=== PATIENT | male | born 1940 | race Caucasian/White ===

== ENCOUNTER 2017-04-05 08:11 | Day surgery (SDC) | payer MEDICARE, OTHER ==
[~2017-04-05 08:11] MED LIST: ALBU8HFA PO; CLOM50CA2 PO; CLOP75TA35 PO; FURO-150 PO; GUAI120L55 PO; LISI-600 PO; METF500T7 PO; METH30CP PO
[2017-04-05] MEDS ORDERED: LIDOcaine 2% 5ml jelly ONE (09:56)
== END 2017-04-05 10:49 | disposition home or self-care (01) ==
LOC: WOUND CARE 08:11
PROVIDERS: ATTEND Surgery
DX: E11.622 Type 2 diabetes mellitus with other skin ulcer (principal); L97.821 Non-pressure chronic ulcer of other part of left lower leg limited to breakdown of skin; E11.621 Type 2 diabetes mellitus with foot ulcer; L97.521 Non-pressure chronic ulcer of other part of left foot limited to breakdown of skin; I87.2 Venous insufficiency (chronic) (peripheral); E11.36 Type 2 diabetes mellitus with diabetic cataract; E11.42 Type 2 diabetes mellitus with diabetic polyneuropathy; L84 Corns and callosities; I10 Essential (primary) hypertension; I89.0 Lymphedema, not elsewhere classified; E78.4 Other hyperlipidemia; H47.293 Other optic atrophy, bilateral; Z98.49 Cataract extraction status, unspecified eye; Z72.89 Other problems related to lifestyle; Z87.891 Personal history of nicotine dependence; Z86.718 Personal history of other venous thrombosis and embolism
CPT/HCPCS: 36416; 82948; 97597; 97598; A6021; A6206; A6441

== ENCOUNTER 2017-04-14 08:35 | Day surgery (SDC) | payer MEDICARE, OTHER ==
[2017-04-14] MEDS ORDERED: LIDOcaine 2% 5ml jelly ONE (09:47)
[2017-04-14] MEDS ORDERED: CIPR-230 PO (14:39)
== END 2017-04-14 10:37 | disposition home or self-care (01) ==
LOC: WOUND CARE 08:35
PROVIDERS: ATTEND Surgery
DX: E11.622 Type 2 diabetes mellitus with other skin ulcer (principal); L97.821 Non-pressure chronic ulcer of other part of left lower leg limited to breakdown of skin; E11.621 Type 2 diabetes mellitus with foot ulcer; L97.521 Non-pressure chronic ulcer of other part of left foot limited to breakdown of skin; I87.2 Venous insufficiency (chronic) (peripheral); E11.36 Type 2 diabetes mellitus with diabetic cataract; E11.42 Type 2 diabetes mellitus with diabetic polyneuropathy; L84 Corns and callosities; I10 Essential (primary) hypertension; I89.0 Lymphedema, not elsewhere classified; E78.4 Other hyperlipidemia; H47.293 Other optic atrophy, bilateral; Z98.49 Cataract extraction status, unspecified eye; Z72.89 Other problems related to lifestyle; Z87.891 Personal history of nicotine dependence; Z86.718 Personal history of other venous thrombosis and embolism
CPT/HCPCS: 36416; 82948; 87070; 87075; 87077; 87102; 87176; 87186; 97597; 97598; A6021; A6222; A6441

== ENCOUNTER 2017-04-21 08:31 | Day surgery (SDC) | payer MEDICARE, OTHER ==
[~2017-04-21 08:31] MED LIST changes: +CIPR-230 PO
[2017-04-21] MEDS ORDERED: LIDOcaine 2% 5ml jelly ONE (09:39)
[2017-04-21] MEDS ORDERED: CIPR500T5 PO (15:15)
== END 2017-04-21 10:15 | disposition home or self-care (01) ==
LOC: WOUND CARE 08:31
PROVIDERS: ATTEND Surgery
DX: E11.622 Type 2 diabetes mellitus with other skin ulcer (principal); L97.821 Non-pressure chronic ulcer of other part of left lower leg limited to breakdown of skin; E11.621 Type 2 diabetes mellitus with foot ulcer; L97.521 Non-pressure chronic ulcer of other part of left foot limited to breakdown of skin; I87.2 Venous insufficiency (chronic) (peripheral); E11.36 Type 2 diabetes mellitus with diabetic cataract; E11.42 Type 2 diabetes mellitus with diabetic polyneuropathy; L84 Corns and callosities; I10 Essential (primary) hypertension; I89.0 Lymphedema, not elsewhere classified; E78.4 Other hyperlipidemia; H47.293 Other optic atrophy, bilateral; Z98.49 Cataract extraction status, unspecified eye; Z72.89 Other problems related to lifestyle; Z87.891 Personal history of nicotine dependence; Z86.718 Personal history of other venous thrombosis and embolism
CPT/HCPCS: 36416; 82948; 97597; 97598; A6021; A6206; A6441

== ENCOUNTER 2017-04-25 08:09 | Day surgery (SDC) | payer MEDICARE, OTHER ==
[~2017-04-25 08:09] MED LIST changes: +CIPR500T5 PO
[2017-04-25] MEDS ORDERED: LIDOcaine 2% 5ml jelly ONE (09:52)
== END 2017-04-25 10:55 | disposition home or self-care (01) ==
LOC: WOUND CARE 08:09
PROVIDERS: ATTEND Surgery
DX: E11.622 Type 2 diabetes mellitus with other skin ulcer (principal); L97.811 Non-pressure chronic ulcer of other part of right lower leg limited to breakdown of skin; E11.621 Type 2 diabetes mellitus with foot ulcer; L97.521 Non-pressure chronic ulcer of other part of left foot limited to breakdown of skin; I87.2 Venous insufficiency (chronic) (peripheral); E11.36 Type 2 diabetes mellitus with diabetic cataract; E11.42 Type 2 diabetes mellitus with diabetic polyneuropathy; L84 Corns and callosities; I10 Essential (primary) hypertension; I89.0 Lymphedema, not elsewhere classified; E78.4 Other hyperlipidemia; H47.293 Other optic atrophy, bilateral; Z98.49 Cataract extraction status, unspecified eye; Z72.89 Other problems related to lifestyle; Z87.891 Personal history of nicotine dependence; Z86.718 Personal history of other venous thrombosis and embolism
CPT/HCPCS: 36416; 82948; 97597; 97598; A6021; A6206; A6441

== ENCOUNTER 2017-04-28 08:30 | Outpatient (CLI) | payer MEDICARE, OTHER ==
[~2017-04-28 08:30] MED LIST changes: -CIPR-230 PO
[2017-04-28] MEDS ORDERED: gentamicin 0.1% topical ointment 15gm TP ONE (08:58)
[2017-04-28] MEDS ORDERED: gentamicin 0.1% topical ointment 15gm TP SCH (09:00)
== END 2017-04-28 09:13 | disposition home or self-care (01) ==
LOC: WOUND CARE 08:30
PROVIDERS: ATTEND Surgery
DX: E11.622 Type 2 diabetes mellitus with other skin ulcer (principal); L97.811 Non-pressure chronic ulcer of other part of right lower leg limited to breakdown of skin; E11.621 Type 2 diabetes mellitus with foot ulcer; L97.521 Non-pressure chronic ulcer of other part of left foot limited to breakdown of skin; I87.2 Venous insufficiency (chronic) (peripheral); E11.36 Type 2 diabetes mellitus with diabetic cataract; E11.42 Type 2 diabetes mellitus with diabetic polyneuropathy; L84 Corns and callosities; I10 Essential (primary) hypertension; I89.0 Lymphedema, not elsewhere classified; E78.4 Other hyperlipidemia; H47.293 Other optic atrophy, bilateral; Z98.49 Cataract extraction status, unspecified eye; Z72.89 Other problems related to lifestyle; Z87.891 Personal history of nicotine dependence; Z86.718 Personal history of other venous thrombosis and embolism
CPT/HCPCS: 29581; 36416; 82948; A6021; A6223; A6441

== ENCOUNTER 2017-05-02 08:07 | Day surgery (SDC) | payer MEDICARE, OTHER ==
[2017-05-02] MEDS ORDERED: LIDOcaine 2% 5ml jelly ONE (09:43)
== END 2017-05-02 10:34 | disposition home or self-care (01) ==
LOC: WOUND CARE 08:07
PROVIDERS: ATTEND Surgery
DX: E11.622 Type 2 diabetes mellitus with other skin ulcer (principal); L97.811 Non-pressure chronic ulcer of other part of right lower leg limited to breakdown of skin; E11.621 Type 2 diabetes mellitus with foot ulcer; L97.521 Non-pressure chronic ulcer of other part of left foot limited to breakdown of skin; I87.2 Venous insufficiency (chronic) (peripheral); E11.36 Type 2 diabetes mellitus with diabetic cataract; E11.42 Type 2 diabetes mellitus with diabetic polyneuropathy; L84 Corns and callosities; I10 Essential (primary) hypertension; I89.0 Lymphedema, not elsewhere classified; E78.4 Other hyperlipidemia; H47.293 Other optic atrophy, bilateral; Z98.49 Cataract extraction status, unspecified eye; Z72.89 Other problems related to lifestyle; Z87.891 Personal history of nicotine dependence; Z86.718 Personal history of other venous thrombosis and embolism
CPT/HCPCS: 29581; 36416; 82948; 97597; A6021; A6206; A6441

== ENCOUNTER 2017-05-05 08:00 | Outpatient (CLI) | payer MEDICARE, OTHER | END 2017-05-05 09:25 | disposition home or self-care (01) | LOC: EDSTATUS 08:00 → WOUND CARE 08:00 | PROVIDERS: ATTEND Surgery | DX: E11.622 Type 2 diabetes mellitus with other skin ulcer (principal); L97.811 Non-pressure chronic ulcer of other part of right lower leg limited to breakdown of skin; E11.621 Type 2 diabetes mellitus with foot ulcer; L97.521 Non-pressure chronic ulcer of other part of left foot limited to breakdown of skin; I87.2 Venous insufficiency (chronic) (peripheral); E11.36 Type 2 diabetes mellitus with diabetic cataract; E11.42 Type 2 diabetes mellitus with diabetic polyneuropathy; L84 Corns and callosities; I10 Essential (primary) hypertension; I89.0 Lymphedema, not elsewhere classified; E78.4 Other hyperlipidemia; H47.293 Other optic atrophy, bilateral; Z98.49 Cataract extraction status, unspecified eye; Z72.89 Other problems related to lifestyle; Z87.891 Personal history of nicotine dependence; Z86.718 Personal history of other venous thrombosis and embolism | CPT/HCPCS: 29581; 36416; 82948; A6021; A6206; A6441 ==

== ENCOUNTER 2017-05-20 08:26 | Outpatient (CLI) | payer MEDICARE, OTHER ==
[~2017-05-20 08:26] MED LIST changes: -CIPR500T5 PO
== END 2017-05-20 09:17 | disposition home or self-care (01) ==
LOC: WOUND CARE 08:26
PROVIDERS: ATTEND Surgery
DX: E11.622 Type 2 diabetes mellitus with other skin ulcer (principal); L97.811 Non-pressure chronic ulcer of other part of right lower leg limited to breakdown of skin; E11.621 Type 2 diabetes mellitus with foot ulcer; L97.521 Non-pressure chronic ulcer of other part of left foot limited to breakdown of skin; I87.2 Venous insufficiency (chronic) (peripheral); E11.36 Type 2 diabetes mellitus with diabetic cataract; E11.42 Type 2 diabetes mellitus with diabetic polyneuropathy; L84 Corns and callosities; I10 Essential (primary) hypertension; I89.0 Lymphedema, not elsewhere classified; E78.4 Other hyperlipidemia; H47.293 Other optic atrophy, bilateral; Z98.49 Cataract extraction status, unspecified eye; Z72.89 Other problems related to lifestyle; Z87.891 Personal history of nicotine dependence; Z86.718 Personal history of other venous thrombosis and embolism
CPT/HCPCS: 29581; 36416; 82948; A6021; A6206; A6441

== ENCOUNTER 2017-05-26 08:25 | Outpatient (CLI) | payer MEDICARE, OTHER | END 2017-05-27 10:30 | disposition home or self-care (01) | LOC: WOUND CARE 08:25 | PROVIDERS: ATTEND Surgery | DX: E11.622 Type 2 diabetes mellitus with other skin ulcer (principal); L97.811 Non-pressure chronic ulcer of other part of right lower leg limited to breakdown of skin; E11.621 Type 2 diabetes mellitus with foot ulcer; L97.521 Non-pressure chronic ulcer of other part of left foot limited to breakdown of skin; I87.2 Venous insufficiency (chronic) (peripheral); E11.36 Type 2 diabetes mellitus with diabetic cataract; E11.42 Type 2 diabetes mellitus with diabetic polyneuropathy; L84 Corns and callosities; I10 Essential (primary) hypertension; I89.0 Lymphedema, not elsewhere classified; E78.4 Other hyperlipidemia; H47.293 Other optic atrophy, bilateral; Z98.49 Cataract extraction status, unspecified eye; Z87.891 Personal history of nicotine dependence; Z86.718 Personal history of other venous thrombosis and embolism | CPT/HCPCS: 29581; 36416; 82948; A6441 ==

== ENCOUNTER 2017-06-02 08:25 | Outpatient (CLI) | payer MEDICARE, OTHER | END 2017-06-02 09:15 | disposition home or self-care (01) | LOC: WOUND CARE 08:25 | PROVIDERS: ATTEND Surgery | DX: E11.622 Type 2 diabetes mellitus with other skin ulcer (principal); L97.811 Non-pressure chronic ulcer of other part of right lower leg limited to breakdown of skin; E11.621 Type 2 diabetes mellitus with foot ulcer; L97.521 Non-pressure chronic ulcer of other part of left foot limited to breakdown of skin; I87.2 Venous insufficiency (chronic) (peripheral); E11.36 Type 2 diabetes mellitus with diabetic cataract; E11.42 Type 2 diabetes mellitus with diabetic polyneuropathy; L84 Corns and callosities; I10 Essential (primary) hypertension; I89.0 Lymphedema, not elsewhere classified; E78.4 Other hyperlipidemia; H47.293 Other optic atrophy, bilateral; Z98.49 Cataract extraction status, unspecified eye; Z87.891 Personal history of nicotine dependence; Z86.718 Personal history of other venous thrombosis and embolism | CPT/HCPCS: 29581; 36416; 82948; A6223; A6441 ==

== ENCOUNTER 2017-06-09 08:29 | Outpatient (CLI) | payer MEDICARE, OTHER | END 2017-06-09 10:02 | disposition home or self-care (01) | LOC: WOUND CARE 08:29 | PROVIDERS: ATTEND Surgery | DX: E11.622 Type 2 diabetes mellitus with other skin ulcer (principal); L97.811 Non-pressure chronic ulcer of other part of right lower leg limited to breakdown of skin; E11.621 Type 2 diabetes mellitus with foot ulcer; L97.521 Non-pressure chronic ulcer of other part of left foot limited to breakdown of skin; I87.2 Venous insufficiency (chronic) (peripheral); E11.36 Type 2 diabetes mellitus with diabetic cataract; E11.42 Type 2 diabetes mellitus with diabetic polyneuropathy; L84 Corns and callosities; I10 Essential (primary) hypertension; I89.0 Lymphedema, not elsewhere classified; E78.4 Other hyperlipidemia; H47.293 Other optic atrophy, bilateral; Z98.49 Cataract extraction status, unspecified eye; Z87.891 Personal history of nicotine dependence; Z86.718 Personal history of other venous thrombosis and embolism | CPT/HCPCS: 29581; 36416; 82948; A6441 ==

== ENCOUNTER 2017-09-09 08:15 | Outpatient (CLI) | payer MEDICARE, OTHER | END 2017-09-09 10:41 | disposition home or self-care (01) | LOC: WOUND CARE 08:15 → EDSTATUS 08:30 → WOUND CARE 10:41 | PROVIDERS: ATTEND Surgery | DX: E11.622 Type 2 diabetes mellitus with other skin ulcer (principal); L97.811 Non-pressure chronic ulcer of other part of right lower leg limited to breakdown of skin; L97.821 Non-pressure chronic ulcer of other part of left lower leg limited to breakdown of skin; I83.11 Varicose veins of right lower extremity with inflammation; E11.36 Type 2 diabetes mellitus with diabetic cataract; E11.42 Type 2 diabetes mellitus with diabetic polyneuropathy; L84 Corns and callosities; I10 Essential (primary) hypertension; I89.0 Lymphedema, not elsewhere classified; E78.4 Other hyperlipidemia; H47.293 Other optic atrophy, bilateral; Z98.49 Cataract extraction status, unspecified eye; Z86.718 Personal history of other venous thrombosis and embolism; Z87.891 Personal history of nicotine dependence | CPT/HCPCS: 29581; 36416; 82948; A4414; A6441 ==

== ENCOUNTER 2017-10-20 08:07 | Day surgery (SDC) | payer MEDICARE, OTHER ==
[2017-10-20] MEDS: LIDOcaine 2% 5ml jelly ONE (09:37)
== END 2017-10-20 10:21 | disposition home or self-care (01) ==
LOC: WOUND CARE 08:07
PROVIDERS: ATTEND Surgery
DX: E11.622 Type 2 diabetes mellitus with other skin ulcer (principal); L97.811 Non-pressure chronic ulcer of other part of right lower leg limited to breakdown of skin; L97.821 Non-pressure chronic ulcer of other part of left lower leg limited to breakdown of skin; I83.11 Varicose veins of right lower extremity with inflammation; E11.36 Type 2 diabetes mellitus with diabetic cataract; E11.42 Type 2 diabetes mellitus with diabetic polyneuropathy; L84 Corns and callosities; I10 Essential (primary) hypertension; I89.0 Lymphedema, not elsewhere classified; E78.4 Other hyperlipidemia; H47.293 Other optic atrophy, bilateral; Z98.49 Cataract extraction status, unspecified eye; Z86.718 Personal history of other venous thrombosis and embolism; Z87.891 Personal history of nicotine dependence
CPT/HCPCS: 36416; 82948; 97597; A6021; A6206; A6441

== ENCOUNTER 2017-10-27 08:05 | Outpatient (CLI) | payer MEDICARE, OTHER | END 2017-10-27 10:17 | disposition home or self-care (01) | LOC: WOUND CARE 08:05 | PROVIDERS: ATTEND Surgery | DX: E11.65 Type 2 diabetes mellitus with hyperglycemia (principal); L97.221 Non-pressure chronic ulcer of left calf limited to breakdown of skin; I83.215 Varicose veins of right lower extremity with both ulcer other part of foot and inflammation; I83.212 Varicose veins of right lower extremity with both ulcer of calf and inflammation | CPT/HCPCS: 29581; 36416; 82948; A6441 ==

== ENCOUNTER 2017-11-03 08:05 | Outpatient (CLI) | payer MEDICARE, OTHER | END 2017-11-03 10:42 | disposition home or self-care (01) | LOC: WOUND CARE 08:05 | PROVIDERS: ATTEND Surgery | DX: E11.622 Type 2 diabetes mellitus with other skin ulcer (principal); L97.211 Non-pressure chronic ulcer of right calf limited to breakdown of skin; L97.221 Non-pressure chronic ulcer of left calf limited to breakdown of skin; I83.212 Varicose veins of right lower extremity with both ulcer of calf and inflammation; I83.222 Varicose veins of left lower extremity with both ulcer of calf and inflammation; E11.36 Type 2 diabetes mellitus with diabetic cataract; E11.42 Type 2 diabetes mellitus with diabetic polyneuropathy; L84 Corns and callosities; I10 Essential (primary) hypertension; I89.0 Lymphedema, not elsewhere classified; E78.4 Other hyperlipidemia; H47.293 Other optic atrophy, bilateral; Z98.49 Cataract extraction status, unspecified eye; Z86.718 Personal history of other venous thrombosis and embolism; Z87.891 Personal history of nicotine dependence | CPT/HCPCS: 29581; 36416; 82948; A6441 ==

== ENCOUNTER 2017-12-16 08:29 | Day surgery (SDC) | payer MEDICARE, OTHER | END 2017-12-16 10:55 | disposition home or self-care (01) | LOC: WOUND CARE 08:29 | PROVIDERS: ATTEND Surgery | DX: E11.622 Type 2 diabetes mellitus with other skin ulcer (principal); L97.221 Non-pressure chronic ulcer of left calf limited to breakdown of skin; I83.022 Varicose veins of left lower extremity with ulcer of calf; E11.36 Type 2 diabetes mellitus with diabetic cataract; E11.42 Type 2 diabetes mellitus with diabetic polyneuropathy; L84 Corns and callosities; I10 Essential (primary) hypertension; I89.0 Lymphedema, not elsewhere classified; H47.293 Other optic atrophy, bilateral; Z98.49 Cataract extraction status, unspecified eye; Z86.718 Personal history of other venous thrombosis and embolism; Z87.891 Personal history of nicotine dependence | CPT/HCPCS: 36416; 82948; 97597; A6021; A6206; A6441 ==

== ENCOUNTER 2017-12-22 08:10 | Outpatient (CLI) | payer MEDICARE, OTHER | END 2017-12-22 10:37 | disposition home or self-care (01) | LOC: WOUND CARE 08:10 | PROVIDERS: ATTEND Surgery | DX: E11.622 Type 2 diabetes mellitus with other skin ulcer (principal); L97.221 Non-pressure chronic ulcer of left calf limited to breakdown of skin; I83.022 Varicose veins of left lower extremity with ulcer of calf; E11.36 Type 2 diabetes mellitus with diabetic cataract; E11.42 Type 2 diabetes mellitus with diabetic polyneuropathy; E11.65 Type 2 diabetes mellitus with hyperglycemia; L84 Corns and callosities; I10 Essential (primary) hypertension; I89.0 Lymphedema, not elsewhere classified; H47.293 Other optic atrophy, bilateral; Z98.49 Cataract extraction status, unspecified eye; Z86.718 Personal history of other venous thrombosis and embolism; Z87.891 Personal history of nicotine dependence | CPT/HCPCS: 29581; 36416; 82948; A6021; A6206; A6441 ==

== ENCOUNTER 2017-12-29 08:07 | Day surgery (SDC) | payer MEDICARE, OTHER | END 2017-12-29 10:32 | disposition home or self-care (01) | LOC: WOUND CARE 08:07 | PROVIDERS: ATTEND Surgery | DX: E11.622 Type 2 diabetes mellitus with other skin ulcer (principal); L97.221 Non-pressure chronic ulcer of left calf limited to breakdown of skin; I83.022 Varicose veins of left lower extremity with ulcer of calf; E11.36 Type 2 diabetes mellitus with diabetic cataract; E11.42 Type 2 diabetes mellitus with diabetic polyneuropathy; E11.65 Type 2 diabetes mellitus with hyperglycemia; L84 Corns and callosities; I10 Essential (primary) hypertension; I89.0 Lymphedema, not elsewhere classified; H47.293 Other optic atrophy, bilateral; Z98.49 Cataract extraction status, unspecified eye; Z86.718 Personal history of other venous thrombosis and embolism; Z87.891 Personal history of nicotine dependence | CPT/HCPCS: 36416; 82948; 97597; A6021; A6206; A6441 ==

== ENCOUNTER 2018-01-05 08:00 | Outpatient (CLI) | payer MEDICARE, OTHER | END 2018-01-05 09:50 | disposition home or self-care (01) | LOC: WOUND CARE 08:00 → EDSTATUS 08:00 → WOUND CARE 09:50 | PROVIDERS: ATTEND Surgery | DX: E11.622 Type 2 diabetes mellitus with other skin ulcer (principal); L97.221 Non-pressure chronic ulcer of left calf limited to breakdown of skin; I83.022 Varicose veins of left lower extremity with ulcer of calf; E11.36 Type 2 diabetes mellitus with diabetic cataract; E11.42 Type 2 diabetes mellitus with diabetic polyneuropathy; E11.65 Type 2 diabetes mellitus with hyperglycemia; L84 Corns and callosities; I10 Essential (primary) hypertension; I89.0 Lymphedema, not elsewhere classified; H47.293 Other optic atrophy, bilateral; Z98.49 Cataract extraction status, unspecified eye; Z86.718 Personal history of other venous thrombosis and embolism; Z87.891 Personal history of nicotine dependence | CPT/HCPCS: 36416; 82948; 99214 ==

== ENCOUNTER 2018-02-09 08:05 | Day surgery (SDC) | payer MEDICARE, OTHER ==
[2018-02-09] MEDS ORDERED: LIDOcaine/PRILOcaine 5gm cream TP ONE (09:44)
[2018-02-09] MEDS ORDERED: silver sulfadiazine cream 50gm TP ONE (10:14)
== END 2018-02-09 10:40 | disposition home or self-care (01) ==
LOC: WOUND CARE 08:05
PROVIDERS: ATTEND Surgery
DX: E11.622 Type 2 diabetes mellitus with other skin ulcer (principal); L97.221 Non-pressure chronic ulcer of left calf limited to breakdown of skin; I83.022 Varicose veins of left lower extremity with ulcer of calf; E11.36 Type 2 diabetes mellitus with diabetic cataract; E11.42 Type 2 diabetes mellitus with diabetic polyneuropathy; E11.65 Type 2 diabetes mellitus with hyperglycemia; L84 Corns and callosities; I10 Essential (primary) hypertension; I89.0 Lymphedema, not elsewhere classified; H47.293 Other optic atrophy, bilateral; Z98.49 Cataract extraction status, unspecified eye; Z86.718 Personal history of other venous thrombosis and embolism; Z87.891 Personal history of nicotine dependence
CPT/HCPCS: 36416; 82948; 97597; A6223; A6441

== ENCOUNTER 2018-02-16 08:05 | Day surgery (SDC) | payer MEDICARE, OTHER ==
[2018-02-16] MEDS ORDERED: LIDOcaine/PRILOcaine 5gm cream TP ONE (09:34)
== END 2018-02-16 10:20 | disposition home or self-care (01) ==
LOC: WOUND CARE 08:05
PROVIDERS: ATTEND Surgery
DX: E11.622 Type 2 diabetes mellitus with other skin ulcer (principal); L97.221 Non-pressure chronic ulcer of left calf limited to breakdown of skin; I83.022 Varicose veins of left lower extremity with ulcer of calf; E11.36 Type 2 diabetes mellitus with diabetic cataract; E11.42 Type 2 diabetes mellitus with diabetic polyneuropathy; E11.65 Type 2 diabetes mellitus with hyperglycemia; L84 Corns and callosities; I10 Essential (primary) hypertension; I89.0 Lymphedema, not elsewhere classified; H47.293 Other optic atrophy, bilateral; Z98.49 Cataract extraction status, unspecified eye; Z86.718 Personal history of other venous thrombosis and embolism; Z87.891 Personal history of nicotine dependence
CPT/HCPCS: 36416; 82948; 97597; A6021; A6206; A6441

== ENCOUNTER 2018-02-24 08:07 | Outpatient (CLI) | payer MEDICARE, OTHER | END 2018-02-24 10:13 | disposition home or self-care (01) | LOC: WOUND CARE 08:07 | PROVIDERS: ATTEND Surgery | DX: E11.622 Type 2 diabetes mellitus with other skin ulcer (principal); L97.221 Non-pressure chronic ulcer of left calf limited to breakdown of skin; I83.022 Varicose veins of left lower extremity with ulcer of calf; E11.36 Type 2 diabetes mellitus with diabetic cataract; E11.42 Type 2 diabetes mellitus with diabetic polyneuropathy; E11.65 Type 2 diabetes mellitus with hyperglycemia; L84 Corns and callosities; I10 Essential (primary) hypertension; I89.0 Lymphedema, not elsewhere classified; H47.293 Other optic atrophy, bilateral; Z98.49 Cataract extraction status, unspecified eye; Z86.718 Personal history of other venous thrombosis and embolism; Z87.891 Personal history of nicotine dependence | CPT/HCPCS: 29581; 36416; 82948; A6021; A6206; A6441 ==

== ENCOUNTER 2018-03-02 08:02 | Day surgery (SDC) | payer MEDICARE, OTHER ==
[2018-03-02] MEDS ORDERED: LIDOcaine 1%/PF 5ML 10 MG/ML VIAL ONE (10:11)
== END 2018-03-02 10:50 | disposition home or self-care (01) ==
LOC: WOUND CARE 08:02
PROVIDERS: ATTEND Surgery
DX: E11.622 Type 2 diabetes mellitus with other skin ulcer (principal); L97.221 Non-pressure chronic ulcer of left calf limited to breakdown of skin; I83.022 Varicose veins of left lower extremity with ulcer of calf; E11.36 Type 2 diabetes mellitus with diabetic cataract; E11.42 Type 2 diabetes mellitus with diabetic polyneuropathy; E11.65 Type 2 diabetes mellitus with hyperglycemia; L84 Corns and callosities; I10 Essential (primary) hypertension; I89.0 Lymphedema, not elsewhere classified; H47.293 Other optic atrophy, bilateral; Z98.49 Cataract extraction status, unspecified eye; Z86.718 Personal history of other venous thrombosis and embolism; Z87.891 Personal history of nicotine dependence
CPT/HCPCS: 29581; 82948; 87070; 87075; 87077; 87102; 87186; 97597; A6209; J2001; A6021; A6206; A6441; A6446

== ENCOUNTER 2018-03-09 08:07 | Day surgery (SDC) | payer MEDICARE, OTHER ==
--- NOTE | 2018-03-09 10:30 | NUR ---
Patient arrived via wheelchair from [facility] and was admitted to outpatient wound care for physician visit with Beau Mendez MD. Dressing removed, wound cleansed. Patient assessed for changes in conditions, medications and medical history. 908 - blood glucose 157. Patient instructed that elevated blood sugars delay healing of the wound and can cause further complications including but not limited to amputation of toes or feet. 929 - Dr. Mendez at bedside accompanied by RN. Wound assessed, time out performed by MD/RN. Wound debrided as detailed in the physician progress/procedure note. Plan of care discussed with patient. Dressings placed per MD orders. Pt instructed to elevate legs at least 30 minutes 3 times a day or 10 minutes every 4 hours, also instructed check their toes. If they become purplish or blue, cool to the touch, numb or tingly, use a pair of scissors and carefully cut off the dressing. Call the Wound Center for an appointment to have the dressing reapplied. Pt instructed that decreased swelling in the legs and the potential for drainage from the wound may require them to have to schedule visits twice weekly, progressing to weekly as the swelling decreases in their legs. Pt instructed that if dressings become loose, wrinkled or falls down and if they are experiencing any pain or discomfort under their dressing cut the dressing off and call the Wound Center to have it reapplied. Pt instructed that the wrap needs to be kept dry. They may bath at a sink or there are devices designed to keep dressings dry these are available at most drug stores. If they choose to shower with a plastic bag taped over the wrap. Be sure to having another person available for assistance or placing towels on the floor of the shower or tub to eliminate the slick surface can reduce the risk of falls. Patient instructed on the signs and symptoms of infection and to call the Wound Center if any occur or to go to the ED if we are closed: Increased pain in wound Increase in drainage from the wound Redness in the skin surrounding the wound Bleeding from the wound Temperature of 101 or greater Patient instructed that the weight of their body puts a large amount of pressure on their wounds. This pressure keeps the new tissue from growing and inhibits new blood vessels from forming. Explained that, if they continue to bear weight on a body part that has a wound, the time it takes to heal the wound increases, the wound may get worse or the wound may not heal at all. Patient verbalized understanding of all discharge instructions and plan of care and exited via wheelchair out to lobby in stable condition with no sign or symptom of distress at time of discharge.
== END 2018-03-09 09:52 | disposition home or self-care (01) ==
LOC: WOUND CARE 08:07
PROVIDERS: ATTEND Surgery
DX: E11.622 Type 2 diabetes mellitus with other skin ulcer (principal); L97.221 Non-pressure chronic ulcer of left calf limited to breakdown of skin; I83.022 Varicose veins of left lower extremity with ulcer of calf; E11.621 Type 2 diabetes mellitus with foot ulcer; L97.512 Non-pressure chronic ulcer of other part of right foot with fat layer exposed; E11.36 Type 2 diabetes mellitus with diabetic cataract; E11.42 Type 2 diabetes mellitus with diabetic polyneuropathy; E11.65 Type 2 diabetes mellitus with hyperglycemia; L84 Corns and callosities; I10 Essential (primary) hypertension; I89.0 Lymphedema, not elsewhere classified; H47.293 Other optic atrophy, bilateral; Z98.49 Cataract extraction status, unspecified eye; Z86.718 Personal history of other venous thrombosis and embolism; Z87.891 Personal history of nicotine dependence
CPT/HCPCS: 29581; 36416; 82948; 97597; A6021; A6206; A6212; A6441

== ENCOUNTER 2018-03-16 07:49 | Outpatient (CLI) | payer MEDICARE, BC ==
--- NOTE | 2018-03-16 12:56 | NUR ---
Patient arrived safely from [facility] via wheelchair. Patient was admitted to outpatient wound care for physician visit with Beau Mendez MD. Dressing removed, wound cleansed and lidocaine applied per order. Patient assessed for changes in conditions, medications and medical history. [id number] Dr. Mendez at bedside accompanied by RN. Wound assessed and no debridement was done. Plan of care discussed with patient. Dressings placed per MD orders. Patient instructed on the signs and symptoms of infection and to call the Wound Center if any occur or to go to the ED if we are closed: Increased pain in wound Increase in drainage from the wound Redness in the skin surrounding the wound Bleeding from the wound Temperature of 101 or greater Patient instructed that elevated blood sugars delay healing of the wound and can cause further complications including but not limited to amputation of toes or feet. Pt instructed to elevate legs at least 30 minutes 3 times a day or 10 minutes every 4 hours, also instructed check their toes. If they become purplish or blue, cool to the touch, numb or tingly, use a pair of scissors and carefully cut off the dressing. Call the Wound Center for an appointment to have the dressing reapplied. Pt instructed that decreased swelling in the legs and the potential for drainage from the wound may require them to have to schedule visits twice weekly, progressing to weekly as the swelling decreases in their legs. Pt instructed that if dressings become loose, wrinkled or falls down and if they are experiencing any pain or discomfort under their dressing cut the dressing off and call the Wound Center to have it reapplied. Pt instructed that the wrap needs to be kept dry. They may bath at a sink or there are devices designed to keep dressings dry these are available at most drug stores. If they choose to shower with a plastic bag taped over the wrap. Be sure to having another person available for assistance or placing towels on the floor of the shower or tub to eliminate the slick surface can reduce the risk of falls. Patient instructed that the weight of their body puts a large amount of pressure on their wounds. This pressure keeps the new tissue from growing and inhibits new blood vessels from forming. Explained that, if they continue to bear weight on a body part that has a wound, the time it takes to heal the wound increases, the wound may get worse or the wound may not heal at all. Patient verbalized understanding of all discharge instructions and plan of care and ambulated independently out to lobby in stable condition with no sign or symptom of distress at time of discharge. Addendum: 03/16/18 at 1258 by Alyssa Evangelista RN Amended: Links added.
== END 2018-03-16 10:30 | disposition home or self-care (01) ==
LOC: WOUND CARE 07:49 → EDSTATUS 08:00 → WOUND CARE 10:30
PROVIDERS: ATTEND Surgery
DX: E11.622 Type 2 diabetes mellitus with other skin ulcer (principal); I83.022 Varicose veins of left lower extremity with ulcer of calf; L97.228 Non-pressure chronic ulcer of left calf with other specified severity; L97.312 Non-pressure chronic ulcer of right ankle with fat layer exposed; E11.621 Type 2 diabetes mellitus with foot ulcer; L97.518 Non-pressure chronic ulcer of other part of right foot with other specified severity; E11.36 Type 2 diabetes mellitus with diabetic cataract; E11.42 Type 2 diabetes mellitus with diabetic polyneuropathy; E11.65 Type 2 diabetes mellitus with hyperglycemia; L84 Corns and callosities; I10 Essential (primary) hypertension; I89.0 Lymphedema, not elsewhere classified; H47.293 Other optic atrophy, bilateral; Z98.49 Cataract extraction status, unspecified eye; Z86.718 Personal history of other venous thrombosis and embolism; Z87.891 Personal history of nicotine dependence
CPT/HCPCS: 29581; 36416; 82948; A6441

== ENCOUNTER 2018-04-06 08:00 | Outpatient (CLI) | payer MEDICARE, BC ==
--- NOTE | 2018-04-06 10:30 | NUR ---
Patient arrived via wheelchair from [facility] and was admitted to outpatient wound care for physician visit with Beau Mendez MD. Dressing removed, wound cleansed. Patient assessed for changes in conditions, medications and medical history. 0955 - Dr. Mendez at bedside accompanied by RN. Wound assessed by MD. Plan of care discussed with patient. No dressings ordered or placed, patient to have caregiver place dressings at home "after shower". Patient instructed on the signs and symptoms of infection and to call the Wound Center if any occur or to go to the ED if we are closed: Increased pain in wound Increase in drainage from the wound Redness in the skin surrounding the wound Bleeding from the wound Temperature of 101 or greater Patient instructed that the weight of their body puts a large amount of pressure on their wounds. This pressure keeps the new tissue from growing and inhibits new blood vessels from forming. Explained that, if they continue to bear weight on a body part that has a wound, the time it takes to heal the wound increases, the wound may get worse or the wound may not heal at all. Patient verbalized understanding of all discharge instructions and plan of care and exited via wheelchair out to [facility] in stable condition with no sign or symptom of distress at time of discharge.
== END 2018-04-06 10:07 | disposition home or self-care (01) ==
LOC: WOUND CARE 08:00 → EDSTATUS 08:00 → WOUND CARE 10:07
PROVIDERS: ATTEND Surgery
DX: E11.622 Type 2 diabetes mellitus with other skin ulcer (principal); I83.022 Varicose veins of left lower extremity with ulcer of calf; L97.228 Non-pressure chronic ulcer of left calf with other specified severity; L97.312 Non-pressure chronic ulcer of right ankle with fat layer exposed; E11.621 Type 2 diabetes mellitus with foot ulcer; L97.518 Non-pressure chronic ulcer of other part of right foot with other specified severity; E11.36 Type 2 diabetes mellitus with diabetic cataract; E11.42 Type 2 diabetes mellitus with diabetic polyneuropathy; E11.65 Type 2 diabetes mellitus with hyperglycemia; L84 Corns and callosities; I10 Essential (primary) hypertension; I89.0 Lymphedema, not elsewhere classified; H47.293 Other optic atrophy, bilateral; Z86.718 Personal history of other venous thrombosis and embolism; Z87.891 Personal history of nicotine dependence
CPT/HCPCS: 36416; 82948; G0463

== ENCOUNTER 2018-04-19 10:20 | Day surgery (SDC) | payer MEDICARE, BC ==
[2018-04-19 12:01] LABS: BASOPHILS % (AUTO) 0.5 % (0-1); EOSINOPHILS # (AUTO) 0.3 X10'3 (0-0.9); HEMATOCRIT 43.1 % (42.0-52.0); HEMOGLOBIN 14.7 g/dl (14.0-17.9); LYMPHOCYTES # (AUTO) 2.2 X10'3 (1.1-4.8); LYMPHOCYTES % (AUTO) 26.4 % (21-51); MEAN CORPUSCULAR HEMOGLOBIN 31.6 PG (27.0-31.0); MEAN CORPUSCULAR HGB CONC 34.2 g/dL (33.0-36.5); MEAN CORPUSCULAR VOLUME 92.4 FL (78-98); MEAN PLATELET VOLUME 8.4 FL (7.4-10.4); MONOCYTES % (AUTO) 12.1 % (2-12); NEUTROPHILS # (AUTO) 4.9 X10'3 (1.8-7.7); PLATELET COUNT 273 X10'3 (140-440); RED BLOOD COUNT 4.66 X10'6 (4.70-6.10); RED CELL DISTRIBUTION WIDTH 13.6 % (11.5-14.5); WHITE BLOOD COUNT 8.5 X10'3 (4.5-11.0)
--- NOTE | 2018-04-19 12:01 | NUR ---
Patient in wheelchair from [facility] and was admitted to outpatient wound care for physician visit. Dressings removed, wound cleansed. Patient assessment completed with review of patient's medical history and current medications. Blood Glucose= 126 @ 1110 1105-Dr. Mendez at bedside accompanied by RN. Wound assessed, time-out performed by MD/RN. Wound debrided as detailed in the physician progress/procedure note. Plan of care discussed with patient. Dressings placed per MD orders. Patient instructed on the signs and symptoms of infection and to call the Wound Center if any occur or to go to the ED if we are closed: Increased pain in the wound Increase in drainage from the wound Redness in the skin surrounding the wound Bleeding from the wound Temperature of 101F or greater Patient instructed that the weight of their body puts a large amount of pressure on their wounds. This pressure keeps the new tissue from growing and inhibits new blood vessels from forming. Explained that, if they continue to bear weight on a body part that has a wound, the time it takes to heal the wound increases, the wound may get worse, or the wound may not heal at all. Patient verbalized understanding of all discharge instructions and plan of care. Patient ambulated independently out to [facility] in stable condition with no signs or symptoms of distress at time of discharge.
[2018-04-19 12:19] LABS: ALANINE AMINOTRANSFERASE 24 U/L (12-78); ALBUMIN 3.5 G/DL (3.4-5.0); ALBUMIN/GLOBULIN RATIO 0.7 (1.1-1.5); ALKALINE PHOSPHATASE 97 IU/L (46-116); ANION GAP 10 (8-16); ASPARTATE AMINO TRANSFERASE 15 U/L (10-37); BILIRUBIN,TOTAL 0.4 MG/DL (0.1-1.0); BLOOD UREA NITROGEN 25 MG/DL (7-18); BUN/CREATININE RATIO 30.9 (5.4-32.0); CALCIUM 8.6 MG/DL (8.5-10.1); CHLORIDE 102 MMOL/L (99-107); CREATININE 0.81 MG/DL (0.60-1.10); GLUCOSE 110 MG/DL (70-104); POTASSIUM 4.3 MMOL/L (3.5-5.1); SODIUM 137 MMOL/L (135-145); TOTAL CARBON DIOXIDE 25.3 MMOL/L (24-32); TOTAL PROTEIN 8.3 G/DL (6.4-8.2); eGFR > 90 ML/MIN
== END 2018-04-19 11:55 | disposition home or self-care (01) ==
LOC: WOUND CARE 10:20
PROVIDERS: ATTEND Surgery
DX: E11.621 Type 2 diabetes mellitus with foot ulcer (principal); L97.512 Non-pressure chronic ulcer of other part of right foot with fat layer exposed; E11.622 Type 2 diabetes mellitus with other skin ulcer; I83.022 Varicose veins of left lower extremity with ulcer of calf; L97.221 Non-pressure chronic ulcer of left calf limited to breakdown of skin; E11.36 Type 2 diabetes mellitus with diabetic cataract; E11.42 Type 2 diabetes mellitus with diabetic polyneuropathy; E11.65 Type 2 diabetes mellitus with hyperglycemia; L84 Corns and callosities; I10 Essential (primary) hypertension; I89.0 Lymphedema, not elsewhere classified; H47.293 Other optic atrophy, bilateral; Z86.718 Personal history of other venous thrombosis and embolism; Z87.891 Personal history of nicotine dependence
CPT/HCPCS: 36415; 36416; 73620; 80053; 82948; 85025; 87070; 87075; 87077; 87102; 87176; 87186; A6021; A6206

== ENCOUNTER 2018-04-21 09:45 | Day surgery (SDC) | payer MEDICARE, BC ==
[2018-04-21] MEDS ORDERED: LIDOcaine 2% 5ml jelly ONE (10:31)
--- NOTE | 2018-04-21 14:51 | NUR ---
Patient arrived safely into lobby via wheelchair. Patient admitted to outpatient wound care clinic for physician visit with Beau Mendez MD. Dressing removed, wound cleansed and lidocaine applied per order. Patient assessed for changes in conditions, medications and medical history. Dr. Mendez at bedside accompanied by RN. Wound assessed, time out performed by MD/RN. Wound debrided as detailed in the physician progress/procedure note. Plan of care discussed with patient. Dressings placed per MD orders. Patient instructed on the signs and symptoms of infection and to call the Wound Center if any occur or to go to the ED if we are closed: Increased pain in wound Increase in drainage from the wound Redness in the skin surrounding the wound Bleeding from the wound Temperature of 101 or greater Patient instructed that elevated blood sugars delay healing of the wound and can cause further complications including but not limited to amputation of toes or feet. Patient instructed that the weight of their body puts a large amount of pressure on their wounds. This pressure keeps the new tissue from growing and inhibits new blood vessels from forming. Explained that, if they continue to bear weight on a body part that has a wound, the time it takes to heal the wound increases, the wound may get worse or the wound may not heal at all. Patient verbalized understanding of all discharge instructions and plan of care and ambulated independently out to [facility] in stable condition with no sign or symptom of distress at time of discharge. Addendum: 04/21/18 at 1454 by Alyssa Evangelista RN Amended: Links added.
== END 2018-04-21 11:35 | disposition home or self-care (01) ==
LOC: WOUND CARE 09:45
PROVIDERS: ATTEND Surgery
DX: E11.621 Type 2 diabetes mellitus with foot ulcer (principal); L97.512 Non-pressure chronic ulcer of other part of right foot with fat layer exposed; E11.622 Type 2 diabetes mellitus with other skin ulcer; I83.022 Varicose veins of left lower extremity with ulcer of calf; L97.221 Non-pressure chronic ulcer of left calf limited to breakdown of skin; E11.36 Type 2 diabetes mellitus with diabetic cataract; E11.42 Type 2 diabetes mellitus with diabetic polyneuropathy; E11.65 Type 2 diabetes mellitus with hyperglycemia; L84 Corns and callosities; I10 Essential (primary) hypertension; I89.0 Lymphedema, not elsewhere classified; H47.293 Other optic atrophy, bilateral; Z86.718 Personal history of other venous thrombosis and embolism; Z87.891 Personal history of nicotine dependence
CPT/HCPCS: 11042; A6209; A6222; A6021; A6206

== ENCOUNTER 2018-04-27 08:01 | Day surgery (SDC) | payer MEDICARE, BC ==
[2018-04-27] MEDS ORDERED: LIDOcaine 2% 5ml jelly ONE (09:38)
--- NOTE | 2018-04-27 10:45 | NUR ---
Patient arrived via wheelchair from [facility] and was admitted to outpatient wound care for physician visit with Beau Mendez MD. Dressing removed, wound cleansed and lidocaine applied per order. Patient assessed for changes in conditions, medications and medical history. 0859 - blood glucose 170. Patient instructed that elevated blood sugars delay healing of the wound and can cause further complications including but not limited to amputation of toes or feet. 0950 - Dr. Mendez at bedside accompanied by RN. Wound assessed, time out performed by MD/RN. Wound debrided as detailed in the physician progress/procedure note. Plan of care discussed with patient. Dressings placed per MD orders. Patient instructed on the signs and symptoms of infection and to call the Wound Center if any occur or to go to the ED if we are closed: Increased pain in wound Increase in drainage from the wound Redness in the skin surrounding the wound Bleeding from the wound Temperature of 101 or greater Patient instructed that the weight of their body puts a large amount of pressure on their wounds. This pressure keeps the new tissue from growing and inhibits new blood vessels from forming. Explained that, if they continue to bear weight on a body part that has a wound, the time it takes to heal the wound increases, the wound may get worse or the wound may not heal at all. Patient verbalized understanding of all discharge instructions and plan of care and exited via wheelchair out to [facility] in stable condition with no sign or symptom of distress at time of discharge.
== END 2018-04-27 10:56 | disposition home or self-care (01) ==
LOC: WOUND CARE 08:01
PROVIDERS: ATTEND Surgery
DX: E11.621 Type 2 diabetes mellitus with foot ulcer (principal); L97.512 Non-pressure chronic ulcer of other part of right foot with fat layer exposed; E11.622 Type 2 diabetes mellitus with other skin ulcer; I83.022 Varicose veins of left lower extremity with ulcer of calf; L97.221 Non-pressure chronic ulcer of left calf limited to breakdown of skin; E11.36 Type 2 diabetes mellitus with diabetic cataract; E11.42 Type 2 diabetes mellitus with diabetic polyneuropathy; E11.65 Type 2 diabetes mellitus with hyperglycemia; L84 Corns and callosities; I10 Essential (primary) hypertension; I89.0 Lymphedema, not elsewhere classified; H47.293 Other optic atrophy, bilateral; Z86.718 Personal history of other venous thrombosis and embolism; Z87.891 Personal history of nicotine dependence
CPT/HCPCS: 11042; 36416; 82948; A6209; A6021; A6206

== ENCOUNTER 2018-05-04 07:55 | Day surgery (SDC) | payer MEDICARE, BC ==
[2018-05-04] MEDS ORDERED: LIDOcaine/PRILOcaine 5gm cream TP ONE (09:36)
--- NOTE | 2018-05-04 10:30 | NUR ---
Patient arrived via wheelchair from [facility] and was admitted to outpatient wound care for physician visit with Beau Mendez MD. Dressing removed, wound cleansed and Emla cream applied per order. Patient assessed for changes in conditions, medications and medical history. 0841 - blood glucose 174. Patient instructed that elevated blood sugars delay healing of the wound and can cause further complications including but not limited to amputation of toes or feet. 1000 - Dr. Mendez at bedside accompanied by RN. Wound assessed, time out performed by MD/RN. Wound debrided as detailed in the physician progress/procedure note. Plan of care discussed with patient. Dressings placed per MD orders. Patient instructed on the signs and symptoms of infection and to call the Wound Center if any occur or to go to the ED if we are closed: Increased pain in wound Increase in drainage from the wound Redness in the skin surrounding the wound Bleeding from the wound Temperature of 101 or greater Patient instructed that the weight of their body puts a large amount of pressure on their wounds. This pressure keeps the new tissue from growing and inhibits new blood vessels from forming. Explained that, if they continue to bear weight on a body part that has a wound, the time it takes to heal the wound increases, the wound may get worse or the wound may not heal at all. Patient verbalized understanding of all discharge instructions and plan of care and exited via wheelchair out to [facility] in stable condition with no sign or symptom of distress at time of discharge.
[2018-05-04] MEDS ORDERED: RIFA300C4 (15:40)
== END 2018-05-04 10:20 | disposition home or self-care (01) ==
LOC: WOUND CARE 07:55
PROVIDERS: ATTEND Surgery
DX: E11.621 Type 2 diabetes mellitus with foot ulcer (principal); L97.512 Non-pressure chronic ulcer of other part of right foot with fat layer exposed; E11.622 Type 2 diabetes mellitus with other skin ulcer; I83.022 Varicose veins of left lower extremity with ulcer of calf; L97.221 Non-pressure chronic ulcer of left calf limited to breakdown of skin; E11.36 Type 2 diabetes mellitus with diabetic cataract; E11.42 Type 2 diabetes mellitus with diabetic polyneuropathy; E11.65 Type 2 diabetes mellitus with hyperglycemia; L84 Corns and callosities; I10 Essential (primary) hypertension; I89.0 Lymphedema, not elsewhere classified; H47.293 Other optic atrophy, bilateral; Z86.718 Personal history of other venous thrombosis and embolism; Z87.891 Personal history of nicotine dependence
CPT/HCPCS: 11042; 36416; 82948; A6222; A6021

== ENCOUNTER 2018-05-11 08:23 | Day surgery (SDC) | payer MEDICARE, BC ==
[~2018-05-11 08:23] MED LIST changes: +RIFA300C4
[2018-05-11] MEDS ORDERED: LIDOcaine/PRILOcaine 5gm cream TP ONE (09:43)
--- NOTE | 2018-05-11 11:00 | NUR ---
Patient arrived via wheelchair from [facility] and was admitted to outpatient wound care for physician visit with Beau Mendez MD. Dressing removed, wound cleansed and Emla cream applied per order. Patient assessed for changes in conditions, medications and medical history. 0901 - blood glucose 197. Patient instructed that elevated blood sugars delay healing of the wound and can cause further complications including but not limited to amputation of toes or feet. 1005 - Dr. Mendez at bedside accompanied by RN. Wound assessed, time out performed by MD/RN. Wound debrided as detailed in the physician progress/procedure note. Plan of care discussed with patient. Dressings placed per MD orders. Patient instructed on the signs and symptoms of infection and to call the Wound Center if any occur or to go to the ED if we are closed: Increased pain in wound Increase in drainage from the wound Redness in the skin surrounding the wound Bleeding from the wound Temperature of 101 or greater Patient instructed that the weight of their body puts a large amount of pressure on their wounds. This pressure keeps the new tissue from growing and inhibits new blood vessels from forming. Explained that, if they continue to bear weight on a body part that has a wound, the time it takes to heal the wound increases, the wound may get worse or the wound may not heal at all. Patient verbalized understanding of all discharge instructions and plan of care and exited via wheelchair out to [facility] in stable condition with no sign or symptom of distress at time of discharge.
== END 2018-05-11 10:42 | disposition home or self-care (01) ==
LOC: WOUND CARE 08:23
PROVIDERS: ATTEND Surgery
DX: E11.621 Type 2 diabetes mellitus with foot ulcer (principal); L97.512 Non-pressure chronic ulcer of other part of right foot with fat layer exposed; E11.622 Type 2 diabetes mellitus with other skin ulcer; I83.022 Varicose veins of left lower extremity with ulcer of calf; L97.221 Non-pressure chronic ulcer of left calf limited to breakdown of skin; E11.36 Type 2 diabetes mellitus with diabetic cataract; E11.42 Type 2 diabetes mellitus with diabetic polyneuropathy; E11.65 Type 2 diabetes mellitus with hyperglycemia; L84 Corns and callosities; I10 Essential (primary) hypertension; I89.0 Lymphedema, not elsewhere classified; H47.293 Other optic atrophy, bilateral; Z86.718 Personal history of other venous thrombosis and embolism; Z87.891 Personal history of nicotine dependence
CPT/HCPCS: 11042; 36416; 82948; A6209; A6021; A6206

== ENCOUNTER 2018-05-18 08:04 | Day surgery (SDC) | payer MEDICARE, BC ==
[2018-05-18] MEDS ORDERED: LIDOcaine/PRILOcaine 5gm cream TP ONE (09:57)
--- NOTE | 2018-05-18 11:00 | NUR ---
Patient arrived via wheelchair from [facility] and was admitted to outpatient wound care for physician visit with Beau Mendez MD. Dressing removed, wound cleansed and Emla cream applied per order. Patient assessed for changes in conditions, medications and medical history. 0903 - blood glucose 167. Patient instructed that elevated blood sugars delay healing of the wound and can cause further complications including but not limited to amputation of toes or feet. 1010 - Dr. Mendez at bedside accompanied by RN. Wound assessed, time out performed by MD/RN. Wound debrided as detailed in the physician progress/procedure note. Plan of care discussed with patient. Dressings placed per MD orders. Patient instructed on the signs and symptoms of infection and to call the Wound Center if any occur or to go to the ED if we are closed: Increased pain in wound Increase in drainage from the wound Redness in the skin surrounding the wound Bleeding from the wound Temperature of 101 or greater Patient instructed that the weight of their body puts a large amount of pressure on their wounds. This pressure keeps the new tissue from growing and inhibits new blood vessels from forming. Explained that, if they continue to bear weight on a body part that has a wound, the time it takes to heal the wound increases, the wound may get worse or the wound may not heal at all. Patient verbalized understanding of all discharge instructions and plan of care and exited via wheelchair out to [facility] in stable condition with no sign or symptom of distress at time of discharge.
== END 2018-05-18 10:38 | disposition home or self-care (01) ==
LOC: WOUND CARE 08:04
PROVIDERS: ATTEND Surgery
DX: E11.621 Type 2 diabetes mellitus with foot ulcer (principal); L97.512 Non-pressure chronic ulcer of other part of right foot with fat layer exposed; E11.622 Type 2 diabetes mellitus with other skin ulcer; I83.022 Varicose veins of left lower extremity with ulcer of calf; L97.221 Non-pressure chronic ulcer of left calf limited to breakdown of skin; E11.36 Type 2 diabetes mellitus with diabetic cataract; E11.42 Type 2 diabetes mellitus with diabetic polyneuropathy; E11.65 Type 2 diabetes mellitus with hyperglycemia; L84 Corns and callosities; I10 Essential (primary) hypertension; I89.0 Lymphedema, not elsewhere classified; H47.293 Other optic atrophy, bilateral; Z86.718 Personal history of other venous thrombosis and embolism; Z87.891 Personal history of nicotine dependence
CPT/HCPCS: 36416; 82948; 97597; A6021; A6206

== ENCOUNTER 2018-05-25 08:00 | Day surgery (SDC) | payer MEDICARE, BC ==
[2018-05-25] MEDS ORDERED: LIDOcaine/PRILOcaine 5gm cream TP ONE (09:49)
--- NOTE | 2018-05-25 10:45 | NUR ---
Patient arrived via wheelchair from [facility] and was admitted to outpatient wound care for physician visit with Beau eMndez MD. Dressing removed, wound cleansed and Emla cream applied per order. Patient assessed for changes in conditions, medications and medical history. 0902 - blood glucose 171. Patient instructed that elevated blood sugars delay healing of the wound and can cause further complications including but not limited to amputation of toes or feet. 1000 - Dr. Mendez at bedside accompanied by RN. Wound assessed, time out performed by MD/RN. Wound debrided as detailed in the physician progress/procedure note. Plan of care discussed with patient. Dressings placed per MD orders. Patient instructed on the signs and symptoms of infection and to call the Wound Center if any occur or to go to the ED if we are closed: Increased pain in wound Increase in drainage from the wound Redness in the skin surrounding the wound Bleeding from the wound Temperature of 101 or greater Patient instructed that the weight of their body puts a large amount of pressure on their wounds. This pressure keeps the new tissue from growing and inhibits new blood vessels from forming. Explained that, if they continue to bear weight on a body part that has a wound, the time it takes to heal the wound increases, the wound may get worse or the wound may not heal at all. Patient verbalized understanding of all discharge instructions and plan of care and exited via wheelchair out to [facility] in stable condition with no sign or symptom of distress at time of discharge.
== END 2018-05-25 10:05 | disposition home or self-care (01) ==
LOC: WOUND CARE 08:00
PROVIDERS: ATTEND Surgery
DX: E11.621 Type 2 diabetes mellitus with foot ulcer (principal); L97.512 Non-pressure chronic ulcer of other part of right foot with fat layer exposed; E11.622 Type 2 diabetes mellitus with other skin ulcer; I83.022 Varicose veins of left lower extremity with ulcer of calf; L97.221 Non-pressure chronic ulcer of left calf limited to breakdown of skin; E11.36 Type 2 diabetes mellitus with diabetic cataract; E11.42 Type 2 diabetes mellitus with diabetic polyneuropathy; E11.65 Type 2 diabetes mellitus with hyperglycemia; L84 Corns and callosities; I10 Essential (primary) hypertension; I89.0 Lymphedema, not elsewhere classified; H47.293 Other optic atrophy, bilateral; Z86.718 Personal history of other venous thrombosis and embolism; Z87.891 Personal history of nicotine dependence
CPT/HCPCS: 11042; 36416; 82948; A6209; A6021; A6206

== ENCOUNTER 2018-06-01 08:00 | Day surgery (SDC) | payer MEDICARE, BC ==
[~2018-06-01 08:00] MED LIST changes: -RIFA300C4
[2018-06-01] MEDS ORDERED: LIDOcaine/PRILOcaine 5gm cream TP ONE (09:44)
--- NOTE | 2018-06-01 15:37 | NUR ---
Patient arrived safely into [facility] via wheelchair. Patient was admitted to outpatient wound care for physician visit with Beau Mendez MD. Dressings removed, wound cleansed and Emla cream applied per order. Patient assessed for changes in conditions, medications and medical history. Dr. Mendez at bedside accompanied by RN. Wound assessed, time out performed by MD/RN. Wound debrided as detailed in the physician progress/procedure note. Plan of care discussed with patient. Dressings placed per MD orders. Patient instructed on the signs and symptoms of infection and to call the Wound Center if any occur or to go to the ED if we are closed: Increased pain in wound Increase in drainage from the wound Redness in the skin surrounding the wound Bleeding from the wound Temperature of 101 or greater Patient instructed that elevated blood sugars delay healing of the wound and can cause further complications including but not limited to amputation of toes or feet. Patient instructed that the weight of their body puts a large amount of pressure on their wounds. This pressure keeps the new tissue from growing and inhibits new blood vessels from forming. Explained that, if they continue to bear weight on a body part that has a wound, the time it takes to heal the wound increases, the wound may get worse or the wound may not heal at all. Patient verbalized understanding of all discharge instructions and plan of care. Patient left in stable condition with no sign or symptom of distress at time of discharge. Addendum: 06/01/18 at 1541 by Alyssa Evangelista RN Amended: Links added.
== END 2018-06-01 10:27 | disposition home or self-care (01) ==
LOC: WOUND CARE 08:00
PROVIDERS: ATTEND Surgery
DX: E11.621 Type 2 diabetes mellitus with foot ulcer (principal); L97.512 Non-pressure chronic ulcer of other part of right foot with fat layer exposed; E11.622 Type 2 diabetes mellitus with other skin ulcer; I83.022 Varicose veins of left lower extremity with ulcer of calf; L97.221 Non-pressure chronic ulcer of left calf limited to breakdown of skin; E11.36 Type 2 diabetes mellitus with diabetic cataract; E11.42 Type 2 diabetes mellitus with diabetic polyneuropathy; E11.65 Type 2 diabetes mellitus with hyperglycemia; L84 Corns and callosities; I10 Essential (primary) hypertension; I89.0 Lymphedema, not elsewhere classified; H47.293 Other optic atrophy, bilateral; Z86.718 Personal history of other venous thrombosis and embolism; Z87.891 Personal history of nicotine dependence
CPT/HCPCS: 36416; 82948; A6021; A6206

== ENCOUNTER 2018-06-08 07:52 | Day surgery (SDC) | payer MEDICARE, BC, OTHER ==
[2018-06-08] MEDS ORDERED: LIDOcaine/PRILOcaine 5gm cream TP ONE (09:42)
--- NOTE | 2018-06-08 16:17 | NUR ---
Patient arrived safely into [facility] via wheelchair. Patient admitted to outpatient wound care clinic for physician visit with Beau Mendez MD. Dressing removed, wound cleansed and Emla cream applied per order. Patient assessed for changes in conditions, medications and medical history. Dr. Mendez at bedside accompanied by RN. Wound assessed, time out performed by MD/RN. Wound debrided as detailed in the physician progress/procedure note. Plan of care discussed with patient. Dressings placed per MD orders. Patient instructed on the signs and symptoms of infection and to call the Wound Center if any occur or to go to the ED if we are closed: Increased pain in wound Increase in drainage from the wound Redness in the skin surrounding the wound Bleeding from the wound Temperature of 101 or greater Patient instructed that elevated blood sugars delay healing of the wound and can cause further complications including but not limited to amputation of toes or feet. Patient instructed that the weight of their body puts a large amount of pressure on their wounds. This pressure keeps the new tissue from growing and inhibits new blood vessels from forming. Explained that, if they continue to bear weight on a body part that has a wound, the time it takes to heal the wound increases, the wound may get worse or the wound may not heal at all. Patient verbalized understanding of all discharge instructions and plan of care. Patient left in stable condition with no sign or symptom of distress at time of discharge. Addendum: 06/08/18 at 1621 by Alyssa Evangelista RN Amended: Links added.
== END 2018-06-08 11:05 | disposition home or self-care (01) ==
LOC: WOUND CARE 07:52
PROVIDERS: ATTEND Surgery
DX: E11.621 Type 2 diabetes mellitus with foot ulcer (principal); L97.512 Non-pressure chronic ulcer of other part of right foot with fat layer exposed; E11.622 Type 2 diabetes mellitus with other skin ulcer; I83.022 Varicose veins of left lower extremity with ulcer of calf; L97.221 Non-pressure chronic ulcer of left calf limited to breakdown of skin; E11.36 Type 2 diabetes mellitus with diabetic cataract; E11.42 Type 2 diabetes mellitus with diabetic polyneuropathy; E11.65 Type 2 diabetes mellitus with hyperglycemia; L84 Corns and callosities; I10 Essential (primary) hypertension; I89.0 Lymphedema, not elsewhere classified; H47.293 Other optic atrophy, bilateral; Z86.718 Personal history of other venous thrombosis and embolism; Z87.891 Personal history of nicotine dependence
CPT/HCPCS: 36416; 82948; A6021; A6206

== ENCOUNTER 2018-06-15 08:00 | Day surgery (SDC) | payer MEDICARE, BC, OTHER ==
--- NOTE | 2018-06-15 10:30 | NUR ---
Patient arrived via wheelchair from [facility] and was admitted to outpatient wound care for physician visit with Beau Mendez MD. Dressing removed, wound cleansed. Patient assessed for changes in conditions, medications and medical history. 931 - blood glucose 127. Patient instructed that elevated blood sugars delay healing of the wound and can cause further complications including but not limited to amputation of toes or feet. 944 - Dr. Mendez at bedside accompanied by RN. Wound assessed, time out performed by MD/RN. Wound debrided and procedure performed as detailed in the physician progress/procedure note. Plan of care discussed with patient. Dressings placed per MD orders. Patient instructed on the signs and symptoms of infection and to call the Wound Center if any occur or to go to the ED if we are closed: Increased pain in wound Increase in drainage from the wound Redness in the skin surrounding the wound Bleeding from the wound Temperature of 101 or greater Patient instructed that the weight of their body puts a large amount of pressure on their wounds. This pressure keeps the new tissue from growing and inhibits new blood vessels from forming. Explained that, if they continue to bear weight on a body part that has a wound, the time it takes to heal the wound increases, the wound may get worse or the wound may not heal at all. Patient verbalized understanding of all discharge instructions and plan of care and exited via wheelchair out to [facility] in stable condition with no sign or symptom of distress at time of discharge.
== END 2018-06-15 10:14 | disposition home or self-care (01) ==
LOC: WOUND CARE 08:00
PROVIDERS: ATTEND Surgery
DX: E11.621 Type 2 diabetes mellitus with foot ulcer (principal); L97.512 Non-pressure chronic ulcer of other part of right foot with fat layer exposed; E11.622 Type 2 diabetes mellitus with other skin ulcer; I83.022 Varicose veins of left lower extremity with ulcer of calf; L97.221 Non-pressure chronic ulcer of left calf limited to breakdown of skin; E11.36 Type 2 diabetes mellitus with diabetic cataract; E11.42 Type 2 diabetes mellitus with diabetic polyneuropathy; E11.65 Type 2 diabetes mellitus with hyperglycemia; L84 Corns and callosities; I10 Essential (primary) hypertension; I89.0 Lymphedema, not elsewhere classified; H47.293 Other optic atrophy, bilateral; Z86.718 Personal history of other venous thrombosis and embolism; Z87.891 Personal history of nicotine dependence
CPT/HCPCS: 15275; 36416; 78315; 82948; A6209; A6222; A9503; Q4187; A6250; A6446

== ENCOUNTER 2018-06-22 07:55 | Day surgery (SDC) | payer MEDICARE, BC, OTHER ==
--- NOTE | 2018-06-22 16:10 | NUR ---
0800 Patient safely wheeled into lobby via w/c. Patient admitted to outpatient wound care clinic for follow-up visit with physician. Dressing removed, wound cleansed. Patient assessed for changes in conditions, medications and medical history. Patient showed no s/s of distress at time of assessment. Patient has a new wound on his left calf. 954 at bedside accompanied by RN. Wounds assessed, time out performed and debridement done today as detailed in the physician progress/procedure note. Plan of care discussed with patient. Dressings placed per MD orders. Pt instructed to elevate legs at least 30 minutes 3 times a day or 10 minutes every 4 hours, also instructed check their toes. If they become purplish or blue, cool to the touch, numb or tingly, use a pair of scissors and carefully cut off the dressing. Call the Wound Center for an appointment to have the dressing reapplied. Pt instructed that decreased swelling in the legs and the potential for drainage from the wound may require them to have to schedule visits twice weekly, progressing to weekly as the swelling decreases in their legs. Pt instructed that if dressings become loose, wrinkled or falls down and if they are experiencing any pain or discomfort under their dressing cut the dressing off and call the Wound Center to have it reapplied. Pt instructed that the wrap needs to be kept dry. They may bath at a sink or there are devices designed to keep dressings dry these are available at most drug stores. If they choose to shower with a plastic bag taped over the wrap. Be sure to having another person available for assistance or placing towels on the floor of the shower or tub to eliminate the slick surface can reduce the risk of falls. Patient instructed on the signs and symptoms of infection and to call the Wound Center if any occur or to go to the ED if we are closed: Increased pain in wound Increase in drainage from the wound Redness in the skin surrounding the wound Bleeding from the wound Temperature of 101 or greater Patient instructed that the weight of their body puts a large amount of pressure on their wounds. This pressure keeps the new tissue from growing and inhibits new blood vessels from forming. Explained that, if they continue to bear weight on a body part that has a wound, the time it takes to heal the wound increases, the wound may get worse or the wound may not heal at all. Patient verbalized understanding of all discharge instructions and plan of care. Patient ambulated independently out to lobby and is in stable condition with no sign or symptom of distress at time of discharge.
== END 2018-06-22 10:32 | disposition home or self-care (01) ==
LOC: WOUND CARE 07:55
PROVIDERS: ATTEND Surgery
DX: E11.621 Type 2 diabetes mellitus with foot ulcer (principal); L97.512 Non-pressure chronic ulcer of other part of right foot with fat layer exposed; E11.622 Type 2 diabetes mellitus with other skin ulcer; I83.022 Varicose veins of left lower extremity with ulcer of calf; L97.221 Non-pressure chronic ulcer of left calf limited to breakdown of skin; E11.36 Type 2 diabetes mellitus with diabetic cataract; E11.42 Type 2 diabetes mellitus with diabetic polyneuropathy; E11.65 Type 2 diabetes mellitus with hyperglycemia; L84 Corns and callosities; I10 Essential (primary) hypertension; I89.0 Lymphedema, not elsewhere classified; H47.293 Other optic atrophy, bilateral; Z86.718 Personal history of other venous thrombosis and embolism; Z87.891 Personal history of nicotine dependence
CPT/HCPCS: 11042; 29581; 36416; 82948; A6222; A6021; A6441

== ENCOUNTER 2018-06-29 07:46 | Day surgery (SDC) | payer MEDICARE, BC, OTHER ==
[2018-06-29] MEDS ORDERED: LIDOcaine/PRILOcaine 5gm cream TP ONE (09:54)
--- NOTE | 2018-06-29 10:45 | NUR ---
Patient arrived via wheelchair from [facility] and was admitted to outpatient wound care for physician visit with Beau Mendez MD. Dressing removed, wound cleansed and Emla cream applied per order. Patient assessed for changes in conditions, medications and medical history. 0900 - blood glucose 155. Patient instructed that elevated blood sugars delay healing of the wound and can cause further complications including but not limited to amputation of toes or feet. 1000 - Dr. Mendez at bedside accompanied by RN. Wound assessed, time out performed by MD/RN. Wound debrided and procedure performed as detailed in the physician progress/procedure note. Plan of care discussed with patient. Dressings placed per MD orders. Patient instructed on the signs and symptoms of infection and to call the Wound Center if any occur or to go to the ED if we are closed: Increased pain in wound Increase in drainage from the wound Redness in the skin surrounding the wound Bleeding from the wound Temperature of 101 or greater Patient instructed that the weight of their body puts a large amount of pressure on their wounds. This pressure keeps the new tissue from growing and inhibits new blood vessels from forming. Explained that, if they continue to bear weight on a body part that has a wound, the time it takes to heal the wound increases, the wound may get worse or the wound may not heal at all. Patient verbalized understanding of all discharge instructions and plan of care and exited via wheelchair out to [facility] in stable condition with no sign or symptom of distress at time of discharge.
== END 2018-06-29 10:32 | disposition home or self-care (01) ==
LOC: WOUND CARE 07:46
PROVIDERS: ATTEND Surgery
DX: E11.621 Type 2 diabetes mellitus with foot ulcer (principal); L97.512 Non-pressure chronic ulcer of other part of right foot with fat layer exposed; E11.622 Type 2 diabetes mellitus with other skin ulcer; I83.022 Varicose veins of left lower extremity with ulcer of calf; L97.228 Non-pressure chronic ulcer of left calf with other specified severity; E11.36 Type 2 diabetes mellitus with diabetic cataract; E11.42 Type 2 diabetes mellitus with diabetic polyneuropathy; E11.65 Type 2 diabetes mellitus with hyperglycemia; L84 Corns and callosities; I10 Essential (primary) hypertension; I89.0 Lymphedema, not elsewhere classified; H47.293 Other optic atrophy, bilateral; Z86.718 Personal history of other venous thrombosis and embolism; Z87.891 Personal history of nicotine dependence
CPT/HCPCS: 15275; 36416; 82948; A6209; A6222; Q4186; A6250

== ENCOUNTER 2018-07-06 07:50 | Day surgery (SDC) | payer MEDICARE, OTHER ==
[2018-07-06] MEDS ORDERED: LIDOcaine/PRILOcaine 5gm cream TP ONE (09:50)
--- NOTE | 2018-07-06 16:03 | NUR ---
Patient arrived safely into [facility] via wheelchair. Patient admitted to outpatient wound care for physician visit with Beau Mendez MD. Dressing removed, wound cleansed and Emla cream applied per order. Patient assessed for changes in conditions, medications and medical history. Dr. Mendez at bedside accompanied by RN. Wound assessed, time out performed by MD/RN. Wound debrided as detailed in the physician progress/procedure note. Plan of care discussed with patient. Dressings placed per MD orders. Patient instructed on the signs and symptoms of infection and to call the Wound Center if any occur or to go to the ED if we are closed: Increased pain in wound Increase in drainage from the wound Redness in the skin surrounding the wound Bleeding from the wound Temperature of 101 or greater Patient instructed that elevated blood sugars delay healing of the wound and can cause further complications including but not limited to amputation of toes or feet. Patient instructed that the weight of their body puts a large amount of pressure on their wounds. This pressure keeps the new tissue from growing and inhibits new blood vessels from forming. Explained that, if they continue to bear weight on a body part that has a wound, the time it takes to heal the wound increases, the wound may get worse or the wound may not heal at all. Patient verbalized understanding of all discharge instructions and plan of care. Patient left in stable condition with no sign or symptom of distress at time of discharge. Addendum: 07/06/18 at 1604 by Alyssa Evangleista RN Amended: Links added.
== END 2018-07-06 10:40 | disposition home or self-care (01) ==
LOC: WOUND CARE 07:50
PROVIDERS: ATTEND Surgery
DX: E11.621 Type 2 diabetes mellitus with foot ulcer (principal); L97.512 Non-pressure chronic ulcer of other part of right foot with fat layer exposed; E11.622 Type 2 diabetes mellitus with other skin ulcer; I83.022 Varicose veins of left lower extremity with ulcer of calf; L97.228 Non-pressure chronic ulcer of left calf with other specified severity; E11.36 Type 2 diabetes mellitus with diabetic cataract; E11.42 Type 2 diabetes mellitus with diabetic polyneuropathy; E11.65 Type 2 diabetes mellitus with hyperglycemia; L84 Corns and callosities; I10 Essential (primary) hypertension; I89.0 Lymphedema, not elsewhere classified; H47.293 Other optic atrophy, bilateral; Z86.718 Personal history of other venous thrombosis and embolism; Z87.891 Personal history of nicotine dependence
CPT/HCPCS: 15275; 36416; 82948; A6209; A6222; Q4187; A6250

== ENCOUNTER 2018-07-20 07:50 | Day surgery (SDC) | payer MEDICARE, OTHER ==
[2018-07-20] MEDS ORDERED: LIDOcaine/PRILOcaine 5gm cream TP ONE (09:03)
--- NOTE | 2018-07-20 10:30 | NUR ---
Patient arrived via wheelchair from [facility] and was admitted to outpatient wound care for physician visit with Beau Mendez MD. Dressing removed, wound cleansed and Emla cream applied per order. Patient assessed for changes in conditions, medications and medical history. 0859 - blood glucose 182. Patient instructed that elevated blood sugars delay healing of the wound and can cause further complications including but not limited to amputation of toes or feet. 919 - Dr. Mendez at bedside accompanied by RN. Wound assessed, time out performed by MD/RN. Wound debrided and procedure performed as detailed in the physician progress/procedure note. Plan of care discussed with patient. Dressings placed per MD orders. Patient instructed on the signs and symptoms of infection and to call the Wound Center if any occur or to go to the ED if we are closed: Increased pain in wound Increase in drainage from the wound Redness in the skin surrounding the wound Bleeding from the wound Temperature of 101 or greater Patient instructed that the weight of their body puts a large amount of pressure on their wounds. This pressure keeps the new tissue from growing and inhibits new blood vessels from forming. Explained that, if they continue to bear weight on a body part that has a wound, the time it takes to heal the wound increases, the wound may get worse or the wound may not heal at all. Patient verbalized understanding of all discharge instructions and plan of care and exited via wheelchair out to [facility] in stable condition with no sign or symptom of distress at time of discharge.
== END 2018-07-20 09:55 | disposition home or self-care (01) ==
LOC: WOUND CARE 07:50
PROVIDERS: ATTEND Surgery
DX: E11.621 Type 2 diabetes mellitus with foot ulcer (principal); L97.512 Non-pressure chronic ulcer of other part of right foot with fat layer exposed; E11.622 Type 2 diabetes mellitus with other skin ulcer; I83.022 Varicose veins of left lower extremity with ulcer of calf; L97.228 Non-pressure chronic ulcer of left calf with other specified severity; E11.36 Type 2 diabetes mellitus with diabetic cataract; E11.42 Type 2 diabetes mellitus with diabetic polyneuropathy; E11.65 Type 2 diabetes mellitus with hyperglycemia; L84 Corns and callosities; I10 Essential (primary) hypertension; I89.0 Lymphedema, not elsewhere classified; H47.293 Other optic atrophy, bilateral; Z86.718 Personal history of other venous thrombosis and embolism; Z87.891 Personal history of nicotine dependence
CPT/HCPCS: 15275; 36416; 82948; A6209; A6222; Q4187; A6250; A6446

== ENCOUNTER 2018-07-27 08:00 | Day surgery (SDC) | payer MEDICARE, OTHER ==
--- NOTE | 2018-07-27 10:30 | NUR ---
Patient arrived via wheelchair from [facility] and was admitted to outpatient wound care for physician visit with Beau Mendez MD. Dressing removed, wound cleansed and lidocaine applied per order. Patient assessed for changes in conditions, medications and medical history. 0855 - blood glucose 176. Patient instructed that elevated blood sugars delay healing of the wound and can cause further complications including but not limited to amputation of toes or feet. 0930 - Dr. Mendez at bedside accompanied by RN. Wound assessed, time out performed by MD/RN. Wound debrided and procedure performe as detailed in the physician progress/procedure note. Plan of care discussed with patient. Dressings placed per MD orders. Pt instructed to elevate legs at least 30 minutes 3 times a day or 10 minutes every 4 hours, also instructed check their toes. If they become purplish or blue, cool to the touch, numb or tingly, use a pair of scissors and carefully cut off the dressing. Call the Wound Center for an appointment to have the dressing reapplied. Pt instructed that decreased swelling in the legs and the potential for drainage from the wound may require them to have to schedule visits twice weekly, progressing to weekly as the swelling decreases in their legs. Pt instructed that if dressings become loose, wrinkled or falls down and if they are experiencing any pain or discomfort under their dressing cut the dressing off and call the Wound Center to have it reapplied. Pt instructed that the wrap needs to be kept dry. They may bath at a sink or there are devices designed to keep dressings dry these are available at most drug stores. If they choose to shower with a plastic bag taped over the wrap. Be sure to having another person available for assistance or placing towels on the floor of the shower or tub to eliminate the slick surface can reduce the risk of falls. Patient instructed on the signs and symptoms of infection and to call the Wound Center if any occur or to go to the ED if we are closed: Increased pain in wound Increase in drainage from the wound Redness in the skin surrounding the wound Bleeding from the wound Temperature of 101 or greater Patient instructed that the weight of their body puts a large amount of pressure on their wounds. This pressure keeps the new tissue from growing and inhibits new blood vessels from forming. Explained that, if they continue to bear weight on a body part that has a wound, the time it takes to heal the wound increases, the wound may get worse or the wound may not heal at all. Patient verbalized understanding of all discharge instructions and plan of care and exited via wheelchair out to lobby in stable condition with no sign or symptom of distress at time of discharge.
== END 2018-07-27 10:30 | disposition home or self-care (01) ==
LOC: WOUND CARE 08:00
PROVIDERS: ATTEND Surgery
DX: E11.621 Type 2 diabetes mellitus with foot ulcer (principal); L97.512 Non-pressure chronic ulcer of other part of right foot with fat layer exposed; E11.622 Type 2 diabetes mellitus with other skin ulcer; I83.212 Varicose veins of right lower extremity with both ulcer of calf and inflammation; L97.211 Non-pressure chronic ulcer of right calf limited to breakdown of skin; I83.022 Varicose veins of left lower extremity with ulcer of calf; L97.221 Non-pressure chronic ulcer of left calf limited to breakdown of skin; E11.36 Type 2 diabetes mellitus with diabetic cataract; E11.42 Type 2 diabetes mellitus with diabetic polyneuropathy; E11.65 Type 2 diabetes mellitus with hyperglycemia; L84 Corns and callosities; I10 Essential (primary) hypertension; I89.0 Lymphedema, not elsewhere classified; H47.293 Other optic atrophy, bilateral; Z86.718 Personal history of other venous thrombosis and embolism; Z87.891 Personal history of nicotine dependence
CPT/HCPCS: 15275; 29581; 36416; 82948; A6222; Q4186; A6021; A6206; A6250; A6441

== ENCOUNTER 2018-08-03 07:55 | Day surgery (SDC) | payer MEDICARE, OTHER ==
[2018-08-03] MEDS ORDERED: LIDOcaine/PRILOcaine 5gm cream TP ONE (09:14)
--- NOTE | 2018-08-03 15:26 | NUR ---
Patient arrived safely into [facility] via wheelchair. Patient admitted to outpatient wound care for physician visit with Beau Mendez MD. Dressing removed, wound cleansed and lidocaine applied per order. Patient assessed for changes in conditions, medications and medical history. Dr. Mendez at bedside accompanied by RN. Wound assessed, time out performed by MD/RN. Wound debrided as detailed in the physician progress/procedure note. Plan of care discussed with patient. Dressings placed per MD orders. Patient instructed on the signs and symptoms of infection and to call the Wound Center if any occur or to go to the ED if we are closed: Increased pain in wound Increase in drainage from the wound Redness in the skin surrounding the wound Bleeding from the wound Temperature of 101 or greater Patient instructed that elevated blood sugars delay healing of the wound and can cause further complications including but not limited to amputation of toes or feet. Patient instructed that the weight of their body puts a large amount of pressure on their wounds. This pressure keeps the new tissue from growing and inhibits new blood vessels from forming. Explained that, if they continue to bear weight on a body part that has a wound, the time it takes to heal the wound increases, the wound may get worse or the wound may not heal at all. Patient verbalized understanding of all discharge instructions and plan of care. Patient left in stable condition with no sign or symptom of distress at time of discharge. Addendum: 08/03/18 at 1528 by Alyssa Evangelista RN Amended: Links added.
== END 2018-08-03 10:05 | disposition home or self-care (01) ==
LOC: WOUND CARE 07:55
PROVIDERS: ATTEND Surgery
DX: E11.621 Type 2 diabetes mellitus with foot ulcer (principal); L97.512 Non-pressure chronic ulcer of other part of right foot with fat layer exposed; E11.622 Type 2 diabetes mellitus with other skin ulcer; I83.212 Varicose veins of right lower extremity with both ulcer of calf and inflammation; L97.211 Non-pressure chronic ulcer of right calf limited to breakdown of skin; I83.022 Varicose veins of left lower extremity with ulcer of calf; L97.221 Non-pressure chronic ulcer of left calf limited to breakdown of skin; E11.36 Type 2 diabetes mellitus with diabetic cataract; E11.42 Type 2 diabetes mellitus with diabetic polyneuropathy; E11.65 Type 2 diabetes mellitus with hyperglycemia; L84 Corns and callosities; I10 Essential (primary) hypertension; I89.0 Lymphedema, not elsewhere classified; H47.293 Other optic atrophy, bilateral; Z86.718 Personal history of other venous thrombosis and embolism; Z87.891 Personal history of nicotine dependence
CPT/HCPCS: 15275; 36416; 82948; A6209; A6222; Q4186; A6250

== ENCOUNTER 2018-08-10 07:49 | Day surgery (SDC) | payer MEDICARE, OTHER ==
[2018-08-10] MEDS ORDERED: LIDOcaine/PRILOcaine 5gm cream TP ONE (08:45)
--- NOTE | 2018-08-10 12:45 | NUR ---
Patient arrived safely into lobby via wheelchair. Patient admitted to outpatient wound care clinic for physician visit with Beau Mendez MD. Dressings removed, wounds cleansed and lidocaine applied per order. Patient assessed for changes in conditions, medications and medical history. Dr. Mendez at bedside accompanied by RN. Wound assessed, time out performed by MD/RN. Wound debrided as detailed in the physician progress/procedure note. Plan of care discussed with patient. Dressings placed per MD orders. Patient instructed on the signs and symptoms of infection and to call the Wound Center if any occur or to go to the ED if we are closed: Increased pain in wound Increase in drainage from the wound Redness in the skin surrounding the wound Bleeding from the wound Temperature of 101 or greater Patient instructed that elevated blood sugars delay healing of the wound and can cause further complications including but not limited to amputation of toes or feet. Pt instructed to elevate legs at least 30 minutes 3 times a day or 10 minutes every 4 hours, also instructed check their toes. If they become purplish or blue, cool to the touch, numb or tingly, use a pair of scissors and carefully cut off the dressing. Call the Wound Center for an appointment to have the dressing reapplied. Pt instructed that decreased swelling in the legs and the potential for drainage from the wound may require them to have to schedule visits twice weekly, progressing to weekly as the swelling decreases in their legs. Pt instructed that if dressings become loose, wrinkled or falls down and if they are experiencing any pain or discomfort under their dressing cut the dressing off and call the Wound Center to have it reapplied. Pt instructed that the wrap needs to be kept dry. They may bath at a sink or there are devices designed to keep dressings dry these are available at most drug stores. If they choose to shower with a plastic bag taped over the wrap. Be sure to having another person available for assistance or placing towels on the floor of the shower or tub to eliminate the slick surface can reduce the risk of falls. Patient instructed that the weight of their body puts a large amount of pressure on their wounds. This pressure keeps the new tissue from growing and inhibits new blood vessels from forming. Explained that, if they continue to bear weight on a body part that has a wound, the time it takes to heal the wound increases, the wound may get worse or the wound may not heal at all. Patient verbalized understanding of all discharge instructions and plan of care. Patient left in stable condition with no sign or symptom of distress at time of discharge. Addendum: 08/10/18 at 1248 by Alyssa Evangelista RN Amended: Links added.
== END 2018-08-10 10:14 | disposition home or self-care (01) ==
LOC: WOUND CARE 07:49
PROVIDERS: ATTEND Surgery
DX: E11.621 Type 2 diabetes mellitus with foot ulcer (principal); L97.512 Non-pressure chronic ulcer of other part of right foot with fat layer exposed; E11.622 Type 2 diabetes mellitus with other skin ulcer; I83.212 Varicose veins of right lower extremity with both ulcer of calf and inflammation; L97.211 Non-pressure chronic ulcer of right calf limited to breakdown of skin; I83.022 Varicose veins of left lower extremity with ulcer of calf; L97.221 Non-pressure chronic ulcer of left calf limited to breakdown of skin; E11.36 Type 2 diabetes mellitus with diabetic cataract; E11.42 Type 2 diabetes mellitus with diabetic polyneuropathy; E11.65 Type 2 diabetes mellitus with hyperglycemia; L84 Corns and callosities; I10 Essential (primary) hypertension; I89.0 Lymphedema, not elsewhere classified; H47.293 Other optic atrophy, bilateral; Z86.718 Personal history of other venous thrombosis and embolism; Z87.891 Personal history of nicotine dependence
CPT/HCPCS: 29581; 36416; 82948; A6021; A6206; A6441

== ENCOUNTER 2018-08-17 08:00 | Day surgery (SDC) | payer MEDICARE, OTHER ==
[2018-08-17] MEDS ORDERED: LIDOcaine/PRILOcaine 5gm cream TP ONE (09:05)
--- NOTE | 2018-08-17 11:00 | NUR ---
Patient arrived via wheelchair from [facility] and was admitted to outpatient wound care for physician visit with Beau Mendez MD. Dressing removed, wound cleansed and Emla cream applied per order. Patient assessed for changes in conditions, medications and medical history. 903 - blood glucose 175. Patient instructed that elevated blood sugars delay healing of the wound and can cause further complications including but not limited to amputation of toes or feet. 939 - Dr. Mendez at bedside accompanied by RN. Wound assessed, time out performed by MD/RN. Wound debrided and procedure performed as detailed in the physician progress/procedure note. Plan of care discussed with patient. Dressings placed per MD orders. Pt instructed to elevate legs at least 30 minutes 3 times a day or 10 minutes every 4 hours, also instructed check their toes. If they become purplish or blue, cool to the touch, numb or tingly, use a pair of scissors and carefully cut off the dressing. Call the Wound Center for an appointment to have the dressing reapplied. Pt instructed that decreased swelling in the legs and the potential for drainage from the wound may require them to have to schedule visits twice weekly, progressing to weekly as the swelling decreases in their legs. Pt instructed that if dressings become loose, wrinkled or falls down and if they are experiencing any pain or discomfort under their dressing cut the dressing off and call the Wound Center to have it reapplied. Pt instructed that the wrap needs to be kept dry. They may bath at a sink or there are devices designed to keep dressings dry these are available at most drug stores. If they choose to shower with a plastic bag taped over the wrap. Be sure to having another person available for assistance or placing towels on the floor of the shower or tub to eliminate the slick surface can reduce the risk of falls. Patient instructed on the signs and symptoms of infection and to call the Wound Center if any occur or to go to the ED if we are closed: Increased pain in wound Increase in drainage from the wound Redness in the skin surrounding the wound Bleeding from the wound Temperature of 101 or greater Patient instructed that the weight of their body puts a large amount of pressure on their wounds. This pressure keeps the new tissue from growing and inhibits new blood vessels from forming. Explained that, if they continue to bear weight on a body part that has a wound, the time it takes to heal the wound increases, the wound may get worse or the wound may not heal at all. Patient verbalized understanding of all discharge instructions and plan of care and exited via wheelchair out to lobby in stable condition with no sign or symptom of distress at time of discharge.
[2018-08-17] MEDS ORDERED: RIFA300C4 (16:02)
== END 2018-08-17 10:56 | disposition home or self-care (01) ==
LOC: WOUND CARE 08:00
PROVIDERS: ATTEND Surgery
DX: E11.621 Type 2 diabetes mellitus with foot ulcer (principal); L97.512 Non-pressure chronic ulcer of other part of right foot with fat layer exposed; E11.622 Type 2 diabetes mellitus with other skin ulcer; I83.212 Varicose veins of right lower extremity with both ulcer of calf and inflammation; L97.211 Non-pressure chronic ulcer of right calf limited to breakdown of skin; I83.222 Varicose veins of left lower extremity with both ulcer of calf and inflammation; L97.221 Non-pressure chronic ulcer of left calf limited to breakdown of skin; E11.36 Type 2 diabetes mellitus with diabetic cataract; E11.42 Type 2 diabetes mellitus with diabetic polyneuropathy; E11.65 Type 2 diabetes mellitus with hyperglycemia; L84 Corns and callosities; I10 Essential (primary) hypertension; I89.0 Lymphedema, not elsewhere classified; H47.293 Other optic atrophy, bilateral; Z86.718 Personal history of other venous thrombosis and embolism; Z87.891 Personal history of nicotine dependence
CPT/HCPCS: 15275; 36416; 82948; 97597; A6222; A6223; Q4186; 29581; A6021; A6250; A6441

== ENCOUNTER 2018-08-24 08:05 | Day surgery (SDC) | payer MEDICARE, OTHER ==
[~2018-08-24 08:05] MED LIST changes: +RIFA300C4
--- NOTE | 2018-08-24 17:02 | NUR ---
Patient arrived safely into lobby via wheelchair. Patient admitted to outpatient wound care clinic for physician visit with Beau Mendez MD. Dressings removed, wounds cleansed and lidocaine applied per order. Patient assessed for changes in conditions, medications and medical history. Patient had a few short cataleptic episodes. Vitals were stable. Dr. Mendez at bedside accompanied by RN. Wound assessed, time out performed by MD/RN. Wound debrided as detailed in the physician progress/procedure note. Plan of care discussed with patient. Dressings placed per MD orders. Patient instructed on the signs and symptoms of infection and to call the Wound Center if any occur or to go to the ED if we are closed: Increased pain in wound Increase in drainage from the wound Redness in the skin surrounding the wound Bleeding from the wound Temperature of 101 or greater Patient instructed that elevated blood sugars delay healing of the wound and can cause further complications including but not limited to amputation of toes or feet. Pt instructed to elevate legs at least 30 minutes 3 times a day or 10 minutes every 4 hours, also instructed check their toes. If they become purplish or blue, cool to the touch, numb or tingly, use a pair of scissors and carefully cut off the dressing. Call the Wound Center for an appointment to have the dressing reapplied. Pt instructed that decreased swelling in the legs and the potential for drainage from the wound may require them to have to schedule visits twice weekly, progressing to weekly as the swelling decreases in their legs. Pt instructed that if dressings become loose, wrinkled or falls down and if they are experiencing any pain or discomfort under their dressing cut the dressing off and call the Wound Center to have it reapplied. Pt instructed that the wraps needs to be kept dry. They may bath at a sink or there are devices designed to keep dressings dry these are available at most drug stores. If they choose to shower with a plastic bag taped over the wraps. Be sure to having another person available for assistance or placing towels on the floor of the shower or tub to eliminate the slick surface can reduce the risk of falls. Patient instructed that the weight of their body puts a large amount of pressure on their wounds. This pressure keeps the new tissue from growing and inhibits new blood vessels from forming. Explained that, if they continue to bear weight on a body part that has a wound, the time it takes to heal the wound increases, the wound may get worse or the wound may not heal at all. Patient verbalized understanding of all discharge instructions and plan of care and ambulated independently out to lobby in stable condition with no sign or symptom of distress at time of discharge. Addendum: 08/24/18 at 1709 by Alyssa Evangelista RN Amended: Links added.
== END 2018-08-24 10:40 | disposition home or self-care (01) ==
LOC: WOUND CARE 08:05
PROVIDERS: ATTEND Surgery
DX: E11.621 Type 2 diabetes mellitus with foot ulcer (principal); L97.512 Non-pressure chronic ulcer of other part of right foot with fat layer exposed; E11.622 Type 2 diabetes mellitus with other skin ulcer; I83.212 Varicose veins of right lower extremity with both ulcer of calf and inflammation; L97.211 Non-pressure chronic ulcer of right calf limited to breakdown of skin; I83.222 Varicose veins of left lower extremity with both ulcer of calf and inflammation; L97.221 Non-pressure chronic ulcer of left calf limited to breakdown of skin; E11.36 Type 2 diabetes mellitus with diabetic cataract; E11.42 Type 2 diabetes mellitus with diabetic polyneuropathy; E11.65 Type 2 diabetes mellitus with hyperglycemia; L84 Corns and callosities; I10 Essential (primary) hypertension; I89.0 Lymphedema, not elsewhere classified; H47.293 Other optic atrophy, bilateral; Z86.718 Personal history of other venous thrombosis and embolism; Z87.891 Personal history of nicotine dependence
CPT/HCPCS: 15275; 36416; 82948; 97597; A6209; A6222; Q4187; 29581; A6021; A6223; A6250; A6441

== ENCOUNTER 2018-09-19 08:00 | Day surgery (SDC) | payer MEDICARE, OTHER ==
--- NOTE | 2018-09-19 11:00 | NUR ---
Patient arrived via wheelchair from [facility] and was admitted to outpatient wound care for physician visit with Beau Mendez MD. Dressing removed, wound cleansed. Patient assessed for changes in conditions, medications and medical history. 0840 - blood glucose 237. Patient instructed that elevated blood sugars delay healing of the wound and can cause further complications including but not limited to amputation of toes or feet. 1020 - Dr. Mendez at bedside accompanied by RN. Wound assessed, time out performed by MD/RN. Wound debrided and procedure performed as detailed in the physician progress/procedure note. Plan of care discussed with patient. Dressings placed per MD orders. Patient instructed on the signs and symptoms of infection and to call the Wound Center if any occur or to go to the ED if we are closed: Increased pain in wound Increase in drainage from the wound Redness in the skin surrounding the wound Bleeding from the wound Temperature of 101 or greater Patient instructed that the weight of their body puts a large amount of pressure on their wounds. This pressure keeps the new tissue from growing and inhibits new blood vessels from forming. Explained that, if they continue to bear weight on a body part that has a wound, the time it takes to heal the wound increases, the wound may get worse or the wound may not heal at all. Patient verbalized understanding of all discharge instructions and plan of care and exited via wheelchair out to [facility] in stable condition with no sign or symptom of distress at time of discharge.
== END 2018-09-19 10:36 | disposition home or self-care (01) ==
LOC: WOUND CARE 08:00
PROVIDERS: ATTEND Surgery
DX: E11.621 Type 2 diabetes mellitus with foot ulcer (principal); L97.512 Non-pressure chronic ulcer of other part of right foot with fat layer exposed; E11.622 Type 2 diabetes mellitus with other skin ulcer; I83.212 Varicose veins of right lower extremity with both ulcer of calf and inflammation; L97.211 Non-pressure chronic ulcer of right calf limited to breakdown of skin; I83.222 Varicose veins of left lower extremity with both ulcer of calf and inflammation; L97.221 Non-pressure chronic ulcer of left calf limited to breakdown of skin; E11.36 Type 2 diabetes mellitus with diabetic cataract; E11.42 Type 2 diabetes mellitus with diabetic polyneuropathy; E11.65 Type 2 diabetes mellitus with hyperglycemia; L84 Corns and callosities; I10 Essential (primary) hypertension; I89.0 Lymphedema, not elsewhere classified; H47.293 Other optic atrophy, bilateral; Z86.718 Personal history of other venous thrombosis and embolism; Z87.891 Personal history of nicotine dependence
CPT/HCPCS: 15275; 36416; A6209; A6222; Q4186; 82948; A6250

== ENCOUNTER 2018-09-28 07:45 | Day surgery (SDC) | payer MEDICARE, OTHER ==
[~2018-09-28 07:45] MED LIST changes: -RIFA300C4
[2018-09-28] MEDS ORDERED: LIDOcaine/PRILOcaine 5gm cream TP ONE (08:55)
--- NOTE | 2018-09-28 14:40 | NUR ---
Patient ambulated independently from [facility] and was admitted to outpatient wound care for physician visit with Beau Mendez MD. Dressing removed, wound cleansed and Emla cream applied per order. Patient assessed for changes in conditions, medications and medical history. Dr. Mendez at bedside accompanied by RN. Wound assessed, time out performed by MD/RN. Wound debrided as detailed in the physician progress/procedure note. Plan of care discussed with patient. Dressings placed per MD orders. Patient instructed on the signs and symptoms of infection and to call the Wound Center if any occur or to go to the ED if we are closed: Increased pain in wound Increase in drainage from the wound Redness in the skin surrounding the wound Bleeding from the wound Temperature of 101 or greater Patient instructed that the weight of their body puts a large amount of pressure on their wounds. This pressure keeps the new tissue from growing and inhibits new blood vessels from forming. Explained that, if they continue to bear weight on a body part that has a wound, the time it takes to heal the wound increases, the wound may get worse or the wound may not heal at all. Patient verbalized understanding of all discharge instructions and plan of care and ambulated independently out to [facility] in stable condition with no sign or symptom of distress at time of discharge. Addendum: 09/28/18 at 1453 by Alyssa Evangelista RN Amended: Links added.
== END 2018-09-28 10:56 | disposition home or self-care (01) ==
LOC: WOUND CARE 07:45
PROVIDERS: ATTEND Surgery
DX: E11.621 Type 2 diabetes mellitus with foot ulcer (principal); L97.512 Non-pressure chronic ulcer of other part of right foot with fat layer exposed; E11.622 Type 2 diabetes mellitus with other skin ulcer; I83.212 Varicose veins of right lower extremity with both ulcer of calf and inflammation; L97.211 Non-pressure chronic ulcer of right calf limited to breakdown of skin; I83.222 Varicose veins of left lower extremity with both ulcer of calf and inflammation; L97.221 Non-pressure chronic ulcer of left calf limited to breakdown of skin; E11.36 Type 2 diabetes mellitus with diabetic cataract; E11.42 Type 2 diabetes mellitus with diabetic polyneuropathy; E11.65 Type 2 diabetes mellitus with hyperglycemia; L84 Corns and callosities; I10 Essential (primary) hypertension; I89.0 Lymphedema, not elsewhere classified; H47.293 Other optic atrophy, bilateral; Z86.718 Personal history of other venous thrombosis and embolism; Z87.891 Personal history of nicotine dependence
CPT/HCPCS: 11042; 36416; 82948; 87070; 87075; 87077; 87102; 87186; 97597; A6209; A4663; A6021; A6154; A6441

== ENCOUNTER 2018-10-05 07:50 | Day surgery (SDC) | payer MEDICARE, OTHER ==
[~2018-10-05 07:50] MED LIST changes: +METF500T20 PO; -METF500T7 PO
[2018-10-05] MEDS ORDERED: LIDOcaine 2% 5ml jelly ONE (09:06)
--- NOTE | 2018-10-05 15:19 | NUR ---
Patient arrived safely into [facility] via wheelchair. Patient admitted to outpatient wound care clinic for first time visit with Beau Mendez MD. Dressing removed, wound cleansed and lidocaine applied per order. Patient assessed and medications and medical history reviewed. Dr. Mendez at bedside accompanied by RN. Wound assessed, time out performed by MD/RN. Wound debrided as detailed in the physician progress/procedure note. Plan of care discussed with patient. Dressings placed per MD orders. Patient instructed on the signs and symptoms of infection and to call the Wound Center if any occur or to go to the ED if we are closed: Increased pain in wound Increase in drainage from the wound Redness in the skin surrounding the wound Bleeding from the wound Temperature of 101 or greater Patient instructed that the weight of their body puts a large amount of pressure on their wounds. This pressure keeps the new tissue from growing and inhibits new blood vessels from forming. Explained that, if they continue to bear weight on a body part that has a wound, the time it takes to heal the wound increases, the wound may get worse or the wound may not heal at all. Patient verbalized understanding of all discharge instructions and plan of care. Patient left in stable condition with no sign or symptom of distress at time of discharge. Addendum: 10/05/18 at 1521 by Napoleon Powers RN Amended: Links added.
== END 2018-10-05 11:05 | disposition home or self-care (01) ==
LOC: WOUND CARE 07:50
PROVIDERS: ATTEND Surgery
DX: E11.621 Type 2 diabetes mellitus with foot ulcer (principal); L97.512 Non-pressure chronic ulcer of other part of right foot with fat layer exposed; E11.622 Type 2 diabetes mellitus with other skin ulcer; I83.212 Varicose veins of right lower extremity with both ulcer of calf and inflammation; L97.211 Non-pressure chronic ulcer of right calf limited to breakdown of skin; I83.222 Varicose veins of left lower extremity with both ulcer of calf and inflammation; L97.221 Non-pressure chronic ulcer of left calf limited to breakdown of skin; E11.36 Type 2 diabetes mellitus with diabetic cataract; E11.42 Type 2 diabetes mellitus with diabetic polyneuropathy; E11.65 Type 2 diabetes mellitus with hyperglycemia; L84 Corns and callosities; I10 Essential (primary) hypertension; I89.0 Lymphedema, not elsewhere classified; H47.293 Other optic atrophy, bilateral; Z86.718 Personal history of other venous thrombosis and embolism; Z87.891 Personal history of nicotine dependence
CPT/HCPCS: 11042; 15275; 29581; 36416; 82948; A6209; A6222; Q4186; A4663; A6021; A6250; A6441

== ENCOUNTER 2018-10-12 07:52 | Day surgery (SDC) | payer MEDICARE, OTHER ==
[2018-10-12] MEDS ORDERED: LIDOcaine/PRILOcaine 5gm cream TP ONE (09:19)
[2018-10-12] MEDS ORDERED: LIDOcaine 2% 5ml jelly ONE (09:22)
--- NOTE | 2018-10-12 10:30 | NUR ---
Patient arrived via wheelchair from [facility] and was admitted to outpatient wound care for physician visit with Beau Mendez MD. Dressing removed, wound cleansed. Patient assessed for changes in conditions, medications and medical history. 0858 - blood glucose 145. Patient instructed that elevated blood sugars delay healing of the wound and can cause further complications including but not limited to amputation of toes or feet. 18 - Dr. Mendez at bedside accompanied by RN. Wound assessed, time out performed by MD/RN. Wound debrided as detailed in the physician progress/procedure note. Plan of care discussed with patient. Dressings placed per MD orders. Patient instructed on the signs and symptoms of infection and to call the Wound Center if any occur or to go to the ED if we are closed: Increased pain in wound Increase in drainage from the wound Redness in the skin surrounding the wound Bleeding from the wound Temperature of 101 or greater Patient instructed that the weight of their body puts a large amount of pressure on their wounds. This pressure keeps the new tissue from growing and inhibits new blood vessels from forming. Explained that, if they continue to bear weight on a body part that has a wound, the time it takes to heal the wound increases, the wound may get worse or the wound may not heal at all. Patient verbalized understanding of all discharge instructions and plan of care and exited via wheelchair out to [facility] in stable condition with no sign or symptom of distress at time of discharge.
[2018-10-12] MEDS ORDERED: CIPR-259 PO (13:25)
== END 2018-10-12 10:17 | disposition home or self-care (01) ==
LOC: WOUND CARE 07:52
PROVIDERS: ATTEND Surgery
DX: E11.621 Type 2 diabetes mellitus with foot ulcer (principal); L97.512 Non-pressure chronic ulcer of other part of right foot with fat layer exposed; E11.622 Type 2 diabetes mellitus with other skin ulcer; I83.212 Varicose veins of right lower extremity with both ulcer of calf and inflammation; L97.211 Non-pressure chronic ulcer of right calf limited to breakdown of skin; I83.222 Varicose veins of left lower extremity with both ulcer of calf and inflammation; L97.221 Non-pressure chronic ulcer of left calf limited to breakdown of skin; E11.36 Type 2 diabetes mellitus with diabetic cataract; E11.42 Type 2 diabetes mellitus with diabetic polyneuropathy; E11.65 Type 2 diabetes mellitus with hyperglycemia; L84 Corns and callosities; I10 Essential (primary) hypertension; I89.0 Lymphedema, not elsewhere classified; H47.293 Other optic atrophy, bilateral; Z86.718 Personal history of other venous thrombosis and embolism; Z87.891 Personal history of nicotine dependence
CPT/HCPCS: 36416; 82948; 97597; A4663; A6021; A6154; A6441

== ENCOUNTER 2018-10-19 08:16 | Day surgery (SDC) | payer MEDICARE, OTHER ==
[~2018-10-19 08:16] MED LIST changes: +CIPR-259 PO
[2018-10-19] MEDS ORDERED: LIDOcaine 2% 5ml jelly ONE (10:03)
== END 2018-10-19 10:30 | disposition home or self-care (01) ==
LOC: WOUND CARE 08:16
PROVIDERS: ATTEND Surgery
DX: E11.621 Type 2 diabetes mellitus with foot ulcer (principal); L97.512 Non-pressure chronic ulcer of other part of right foot with fat layer exposed; L97.522 Non-pressure chronic ulcer of other part of left foot with fat layer exposed; E11.622 Type 2 diabetes mellitus with other skin ulcer; I83.212 Varicose veins of right lower extremity with both ulcer of calf and inflammation; L97.211 Non-pressure chronic ulcer of right calf limited to breakdown of skin; I83.222 Varicose veins of left lower extremity with both ulcer of calf and inflammation; L97.221 Non-pressure chronic ulcer of left calf limited to breakdown of skin; E11.36 Type 2 diabetes mellitus with diabetic cataract; E11.42 Type 2 diabetes mellitus with diabetic polyneuropathy; E11.65 Type 2 diabetes mellitus with hyperglycemia; L84 Corns and callosities; I10 Essential (primary) hypertension; I89.0 Lymphedema, not elsewhere classified; H47.293 Other optic atrophy, bilateral; Z86.718 Personal history of other venous thrombosis and embolism; Z87.891 Personal history of nicotine dependence
CPT/HCPCS: 29581; 36416; 82948; 97597; A4663; A6021; A6154; A6441

== ENCOUNTER 2018-10-26 08:20 | Day surgery (SDC) | payer MEDICARE, OTHER ==
[2018-10-26] MEDS ORDERED: LIDOcaine 2% 5ml jelly ONE (09:13)
== END 2018-10-26 10:45 | disposition home or self-care (01) ==
LOC: WOUND CARE 08:20
PROVIDERS: ATTEND Surgery
DX: E11.621 Type 2 diabetes mellitus with foot ulcer (principal); I83.015 Varicose veins of right lower extremity with ulcer other part of foot; L97.512 Non-pressure chronic ulcer of other part of right foot with fat layer exposed; I83.025 Varicose veins of left lower extremity with ulcer other part of foot; L97.522 Non-pressure chronic ulcer of other part of left foot with fat layer exposed; E11.622 Type 2 diabetes mellitus with other skin ulcer; I83.212 Varicose veins of right lower extremity with both ulcer of calf and inflammation; L97.211 Non-pressure chronic ulcer of right calf limited to breakdown of skin; I83.222 Varicose veins of left lower extremity with both ulcer of calf and inflammation; L97.221 Non-pressure chronic ulcer of left calf limited to breakdown of skin; E11.36 Type 2 diabetes mellitus with diabetic cataract; E11.42 Type 2 diabetes mellitus with diabetic polyneuropathy; E11.65 Type 2 diabetes mellitus with hyperglycemia; L84 Corns and callosities; I10 Essential (primary) hypertension; I89.0 Lymphedema, not elsewhere classified; H47.293 Other optic atrophy, bilateral; Z86.718 Personal history of other venous thrombosis and embolism; Z87.891 Personal history of nicotine dependence
CPT/HCPCS: 82948; 97597; 97598; A4663; A6021; A6154; A6441

== ENCOUNTER 2018-11-02 07:55 | Day surgery (SDC) | payer MEDICARE, OTHER ==
[2018-11-02] MEDS ORDERED: LIDOcaine 2% 5ml jelly ONE (09:24)
== END 2018-11-02 10:32 | disposition home or self-care (01) ==
LOC: WOUND CARE 07:55
PROVIDERS: ATTEND Surgery
DX: E11.621 Type 2 diabetes mellitus with foot ulcer (principal); I83.015 Varicose veins of right lower extremity with ulcer other part of foot; L97.512 Non-pressure chronic ulcer of other part of right foot with fat layer exposed; I83.025 Varicose veins of left lower extremity with ulcer other part of foot; L97.522 Non-pressure chronic ulcer of other part of left foot with fat layer exposed; E11.622 Type 2 diabetes mellitus with other skin ulcer; I83.212 Varicose veins of right lower extremity with both ulcer of calf and inflammation; L97.211 Non-pressure chronic ulcer of right calf limited to breakdown of skin; I83.018 Varicose veins of right lower extremity with ulcer other part of lower leg; L97.811 Non-pressure chronic ulcer of other part of right lower leg limited to breakdown of skin; I83.222 Varicose veins of left lower extremity with both ulcer of calf and inflammation; L97.221 Non-pressure chronic ulcer of left calf limited to breakdown of skin; I83.028 Varicose veins of left lower extremity with ulcer other part of lower leg; L97.821 Non-pressure chronic ulcer of other part of left lower leg limited to breakdown of skin; E11.36 Type 2 diabetes mellitus with diabetic cataract; E11.42 Type 2 diabetes mellitus with diabetic polyneuropathy; E11.65 Type 2 diabetes mellitus with hyperglycemia; L84 Corns and callosities; I10 Essential (primary) hypertension; I89.0 Lymphedema, not elsewhere classified; H47.293 Other optic atrophy, bilateral; Z86.718 Personal history of other venous thrombosis and embolism; Z87.891 Personal history of nicotine dependence
CPT/HCPCS: 36416; 82948; A4663; A6021; A6154

== ENCOUNTER 2018-11-07 08:09 | Inpatient (IN) | payer MEDICARE, OTHER ==
[~2018-11-07] VITALS: Ht 182.9 cm; Wt 140.4 kg
[2018-11-07 10:07] LABS: HEMATOCRIT 37.5 % (42.0-52.0); HEMOGLOBIN 13.3 g/dl (14.0-17.9); MEAN CORPUSCULAR HEMOGLOBIN 32.7 PG (27.0-31.0); MEAN CORPUSCULAR HGB CONC 35.6 g/dL (33.0-36.5); MEAN CORPUSCULAR VOLUME 91.9 FL (78-98); PLATELET COUNT 237 X10'3 (140-440); RED BLOOD COUNT 4.08 X10'6 (4.70-6.10); RED CELL DISTRIBUTION WIDTH 13.7 % (11.5-14.5); WHITE BLOOD COUNT 12.4 X10'3 (4.5-11.0)
[2018-11-07 10:08] LABS: BASOPHILS # (AUTO) 0.1 X10'3 (0-0.2); BASOPHILS % (AUTO) 0.5 % (0-1); EOSINOPHILS % (AUTO) 0.1 % (0-6); LYMPHOCYTES # (AUTO) 1.2 X10'3 (1.1-4.8); LYMPHOCYTES % (AUTO) 9.4 % (21-51); MEAN PLATELET VOLUME 8.2 FL (7.4-10.4); MONOCYTES # (AUTO) 2.1 X10'3 (0-0.9); MONOCYTES % (AUTO) 16.7 % (2-12); NEUTROPHILS # (AUTO) 9.1 X10'3 (1.8-7.7); NEUTROPHILS % (AUTO) 73.3 % (42-75)
[2018-11-07 10:23] LABS: ALANINE AMINOTRANSFERASE 25 U/L (12-78); ALBUMIN 3.3 G/DL (3.4-5.0); ALBUMIN/GLOBULIN RATIO 0.7 (1.1-1.5); ALKALINE PHOSPHATASE 80 IU/L (46-116); ANION GAP 9 (8-16); ASPARTATE AMINO TRANSFERASE 13 U/L (10-37); BLOOD UREA NITROGEN 16 MG/DL (7-18); BUN/CREATININE RATIO 20.5 (5.4-32.0); C-REACTIVE PROTEIN 15.13 MG/DL (0.0-0.5); CALCIUM 8.6 MG/DL (8.5-10.1); CHLORIDE 102 MMOL/L (99-107); CREATININE 0.78 MG/DL (0.60-1.10); GLUCOSE 182 MG/DL (70-104); POTASSIUM 3.8 MMOL/L (3.5-5.1); SODIUM 136 MMOL/L (135-145); TOTAL CARBON DIOXIDE 25.3 MMOL/L (24-32); TOTAL PROTEIN 7.9 G/DL (6.4-8.2); eGFR > 90 ML/MIN
[2018-11-07 10:40] LABS: PLATELET ESTIMATE NORMAL; TOTAL CELLS COUNTED 100
[2018-11-07] MEDS ORDERED: ketorolac tromethamine 15mg/ml inj. IV ONE (11:30)
[2018-11-07] MEDS ORDERED: HYDROcodone/acetaminophen 10/325mg tab PO ONE (12:00)
[2018-11-07] MEDS ORDERED: GLIM1TAB3 PO (12:49)
[2018-11-07] MEDS ORDERED: METH30CP PO (12:49)
[2018-11-07] MEDS ORDERED: magnesium 4gm in 100ml NS 100 ML IV PRN (13:45)
[2018-11-07] MEDS ORDERED: glucagon, human recombinant 1mg kit SUBCUT PRN (13:45)
[2018-11-07] MEDS ORDERED: HYDROcodone/acetaminophen 5mg/325mg tablet PO PRN (13:45)
[2018-11-07] MEDS ORDERED: magnesium Cl slow-release 64mg tablet PO PRN (13:45)
[2018-11-07] MEDS ORDERED: diphenhydrAMINE 25mg capsule PO PRN (13:45)
[2018-11-07] MEDS ORDERED: morphine 2 MG/ML inj. syringe IV PRN ×2 (13:45)
[2018-11-07] MEDS ORDERED: dextrose ORAL solution 15 GM/59 ML bottle PO PRN ×2 (13:45)
[2018-11-07] MEDS ORDERED: mag hydrox/Alum hydrox/simeth 30ml oral suspension PO PRN (13:45)
[2018-11-07] MEDS ORDERED: potassium CL 10mEq/100ml bag 100 ML IV PRN ×2 (13:45)
[2018-11-07] MEDS ORDERED: magnesium 2GM in 50ml NS 50 ML IV PRN (13:45)
[2018-11-07] MEDS ORDERED: MESSAGE TO PHARMACY PO ONE (13:45)
[2018-11-07] MEDS ORDERED: dextrose 50%-water 50ml dispensing syringe IV PRN ×2 (13:45)
[2018-11-07] MEDS ORDERED: magnesium hydroxide 30ml (MOM) UD suspension PO PRN (13:45)
[2018-11-07] MEDS ORDERED: ondansetron/PF 4mg/2ml inj IV PRN (13:45)
[2018-11-07] MEDS ORDERED: potassium Cl 20 mEq SR tablet PO PRN ×2 (13:45)
[2018-11-07] MEDS ORDERED: acetaminophen 325mg tablet PO PRN ×2 (13:45)
--- NOTE | 2018-11-07 14:23 | NUR ---
DR KHAN AT BEDSIDE TAKING A HISTORY AND PHYSICAL. PATIENT EXPRESSED HIS WISH TO BE A DNR. ASKED SEVERAL TIMES, HE CONFIRMED.
[2018-11-07] MEDS: normal saline 1000ml 1,000 ML IV SCH (14:25)
[2018-11-07] MEDS: K and/or MAG REPLACEMENT MC SCH (14:25)
[2018-11-07] MEDS: nafcillin inj 2 GM in normal saline 100ml IV soln 100 ML IV SCH ×2 (14:25→20:59)
[2018-11-07] MEDS: cefepime 2g/NS 100ml ADVANTAGE 100 ML IV SCH ×2 (15:05→22:29)
--- NOTE | 2018-11-07 15:26 | NUR ---
first call to floor to give report. nurse busy with another patient and will call me back in a few minutes
--- NOTE | 2018-11-07 16:08 | NUR ---
took pictures of his wounds to [facility], gave report to Mayte SAENZ on Surgical, patient transported upstairs for further treatment
--- NOTE | 2018-11-07 16:34 | NUR ---
Patient on the unit from ER, Report from Abe SAENZ
[2018-11-07 16:45] VITALS: BP 122/61
--- NOTE | 2018-11-07 16:56 | NUR ---
Home Medications taken to the pharmacy.
[2018-11-07] MEDS: HYDROcodone/acetaminophen 10/325mg tab PO PRN (18:09)
--- NOTE | 2018-11-07 18:27 | NUR ---
Problems reprioritized. Patient report given, questions answered & plan of care reviewed with Violetta SAENZ.
--- NOTE | 2018-11-07 18:30 | NUR ---
Patient in room RUBEN 357. I have received report from Mayte SAENZ and had the opportunity to ask questions and assume patient care. Patient finishing dinner, denies further needs at this time. Will continue to monitor.
[2018-11-07 20:00] VITALS: BP 129/75
[2018-11-07] MEDS: insulin glargine (Lantus) pen - multi-dose SQ SCH (20:59)
[2018-11-07] MEDS ORDERED: temazepam 15mg capsule PO PRN (21:00)
[2018-11-07] MEDS: heparin, porcine 5000 units/ml vial SQ SCH (21:01)
[2018-11-07] MEDS: CLOMIPRAMINE 50 MG PO SCH (21:08)
[2018-11-08] VITALS: BP 117/51
--- NOTE | 2018-11-08 01:32 | NUR ---
Notified Dr. Blackman that patient has not urinated since 1600, received order to straight cath and obtain UA. Will continue to monitor.
[2018-11-08 02:05] LABS: CLARITY,URINE CLEAR (Clear); COLOR,URINE YELLOW (Yellow); GLUCOSE, URINE 250 mg/dl (Neg); KETONES,URINE NEGATIVE (Neg); LEUKOCYTE ESTERASE ,URINE NEGATIVE (Neg); NITRITES, URINE NEGATIVE (Neg); OCCULT BLOOD,URINE MODERATE (Neg); PH,URINE 5.5 (4.8-8.0); PROTEIN,URINE NEGATIVE (Neg); UA COLLECTION TYPE OTHER; UROBILINOGEN,URINE 0.2 E.U/dL (0.2-1.0)
[2018-11-08 02:11] LABS: BACTERIA,URINE NONE SEEN /HPF (Neg); MUCUS STRANDS FEW /LPF (Neg); RBC,URINE 20-50 /HPF (0-2); SQUAMOUS EPITHELIAL CELL,UR FEW /LPF (FEW); WBC,URINE NONE SEEN /HPF (0-4)
[2018-11-08 02:13] LABS: CAL OXALATE CRYSTALS 1+ /HPF (NEGATIVE)
[2018-11-08] MEDS: nafcillin inj 2 GM in normal saline 100ml IV soln 100 ML IV SCH (02:38)
[2018-11-08] MEDS: normal saline 1000ml 1,000 ML IV SCH ×3 (02:39→15:43)
[2018-11-08] MEDS: HYDROcodone/acetaminophen 10/325mg tab PO PRN ×2 (03:20→08:26)
[2018-11-08 05:59] LABS: BASOPHILS % (AUTO) 0.5 % (0-1); EOSINOPHILS # (AUTO) 0.1 X10'3 (0-0.9); EOSINOPHILS % (AUTO) 0.5 % (0-6); HEMATOCRIT 33.8 % (42.0-52.0); HEMOGLOBIN 11.7 g/dl (14.0-17.9); LYMPHOCYTES # (AUTO) 1.5 X10'3 (1.1-4.8); LYMPHOCYTES % (AUTO) 14.4 % (21-51); MEAN CORPUSCULAR HEMOGLOBIN 31.8 PG (27.0-31.0); MEAN CORPUSCULAR HGB CONC 34.5 g/dL (33.0-36.5); MEAN CORPUSCULAR VOLUME 92.1 FL (78-98); MEAN PLATELET VOLUME 8.7 FL (7.4-10.4); MONOCYTES # (AUTO) 1.6 X10'3 (0-0.9); NEUTROPHILS # (AUTO) 7.1 X10'3 (1.8-7.7); NEUTROPHILS % (AUTO) 68.6 % (42-75); PLATELET COUNT 205 X10'3 (140-440); RED BLOOD COUNT 3.67 X10'6 (4.70-6.10); RED CELL DISTRIBUTION WIDTH 13.5 % (11.5-14.5); WHITE BLOOD COUNT 10.3 X10'3 (4.5-11.0)
[2018-11-08 06:10] LABS: ALANINE AMINOTRANSFERASE 24 U/L (12-78); ALBUMIN 2.8 G/DL (3.4-5.0); ALBUMIN/GLOBULIN RATIO 0.6 (1.1-1.5); ALKALINE PHOSPHATASE 70 IU/L (46-116); ANION GAP 10 (8-16); ASPARTATE AMINO TRANSFERASE 19 U/L (10-37); BLOOD UREA NITROGEN 16 MG/DL (7-18); BUN/CREATININE RATIO 17.4 (5.4-32.0); CALCIUM 8.1 MG/DL (8.5-10.1); CHLORIDE 105 MMOL/L (99-107); CHOL/HDL RATIO 2.9 (0.00-4.99); CHOLESTEROL 125 MG/DL (0-200); CREATININE 0.92 MG/DL (0.60-1.10); GLUCOSE 145 MG/DL (70-104); HDL CHOLESTEROL 43 MG/DL (35-60); LDL CHOLESTEROL 69 MG/DL (50-100); MAGNESIUM 2.1 MG/DL (1.5-2.4); PHOSPHORUS 2.4 MG/DL (2.3-4.5); POTASSIUM 3.6 MMOL/L (3.5-5.1); SODIUM 138 MMOL/L (135-145); TOTAL CARBON DIOXIDE 22.8 MMOL/L (24-32); TOTAL PROTEIN 7.2 G/DL (6.4-8.2); TRIGLYCERIDES 59 MG/DL (20-135); eGFR 79 ML/MIN
[2018-11-08 07:00] VITALS: BP 121/63
--- NOTE | 2018-11-08 07:00 | NUR ---
Patient in room RUBEN 357. I have received report from Svetlana SAENZ and had the opportunity to ask questions and assume patient care.
[2018-11-08] MEDS: K and/or MAG REPLACEMENT MC SCH (08:00)
[2018-11-08] MEDS: heparin, porcine 5000 units/ml vial SQ SCH ×2 (08:24→21:14)
[2018-11-08] MEDS: METHYLPHENIDATE 30 MG PO SCH (08:24)
[2018-11-08] MEDS: lisinopril 20mg tablet PO SCH (08:25)
[2018-11-08] MEDS: cefepime 2g/NS 100ml ADVANTAGE 100 ML IV SCH (08:26)
[2018-11-08 08:41] LABS: PLATELET ESTIMATE NORMAL; TOTAL CELLS COUNTED 100
--- NOTE | 2018-11-08 10:21 | NUR ---
Bladder scan done: 20ml. Pt. denies symptoms/discomfort. Will continue to monitor.
[2018-11-08 11:00] VITALS: BP 135/50
--- NOTE | 2018-11-08 11:02 | NUR ---
Wound care in to see patient for wound consult.
[2018-11-08] MEDS ORDERED: LIDOcaine 1% (10mg/ml) 2ml vial SQ ONE (12:30)
[2018-11-08] MEDS: nystatin 15 GM powder TP SCH ×2 (14:03→21:16)
[2018-11-08] MEDS ORDERED: VANCOMYCIN LEVEL IV ONE (14:30)
--- NOTE | 2018-11-08 14:30 | NUR ---
Bladder scan done: 53ml. Patient also had an episode of incontinence and was changed by aide. Will continue to monitor.
[2018-11-08] MEDS ORDERED: vancomycin/NS 1 GM ADD-VANTAGE 250 ML IV SCH (16:00)
--- NOTE | 2018-11-08 16:11 | NUR ---
Patient states he has a headache offered patient Ayan he refused.
[2018-11-08 16:25] LABS: APPEARANCE,SYNOVIAL FLUID CLOUDY; COLOR,SYNOVIAL FLUID OTHER
[2018-11-08 16:26] LABS: LYMPHOCYTES,SYNOVIAL FLUID 5 % (0-75); MONOCYTES,SYNOVIAL FLUID 7 % (0-0); NEUTROPHILS,SYNOVIAL FLUID 88 % (0-25); SYN RBC 10500 /CU MM (0); SYN WBC 109500 /CU MM (0-200); SYNOVIAL FLUID CRYSTALS QT NO CRYSTALS SEEN
--- NOTE | 2018-11-08 18:30 | NUR ---
Patient in room RUBEN 357. I have received report from Fiordaliza SAENZ and had the opportunity to ask questions and assume patient care. Patient finishing dinner, will continue to monitor.
--- NOTE | 2018-11-08 18:40 | NUR ---
Problems reprioritized. Patient report given, questions answered & plan of care reviewed with Svetlana SAENZ.
[2018-11-08 19:00] VITALS: BP 118/56
[2018-11-08] MEDS ORDERED: LACTOBACILLUS RHAMNOSUS GG 15 billion unit sprinkle caps PO SCH (20:00)
[2018-11-08] MEDS: insulin glargine (Lantus) pen - multi-dose SQ SCH (21:11)
[2018-11-08] MEDS: CLOMIPRAMINE 50 MG PO SCH (21:13)
[2018-11-08] MEDS: lactobacillus rhamnosus 10,000 MMU CELLS/CAPSULE PO SCH (21:17)
[2018-11-09] VITALS (15 sets, daily range): BP systolic 112–153; BP diastolic 43–70
[2018-11-09] MEDS: HYDROcodone/acetaminophen 10/325mg tab PO PRN ×2 (01:23→09:35)
[2018-11-09] MEDS ORDERED: LIDOcaine 2% 10ml TOPICAL JELLY (Urojet) MM ONE (02:45)
--- NOTE | 2018-11-09 04:40 | NUR ---
Bladder scan shows 787 ml, received order yesterday from [facility] that catheter to be placed if straight cath more than once, neumann cath placed, 1000ml out at this time, will continue to monitor.
[2018-11-09] MEDS ORDERED: dextrose 5%-normal saline 1,000 ML IV SCH (05:00)
[2018-11-09 05:46] LABS: BASOPHILS % (AUTO) 0.5 % (0-1); EOSINOPHILS # (AUTO) 0.1 X10'3 (0-0.9); EOSINOPHILS % (AUTO) 0.7 % (0-6); HEMATOCRIT 33.9 % (42.0-52.0); HEMOGLOBIN 11.7 g/dl (14.0-17.9); LYMPHOCYTES # (AUTO) 1.3 X10'3 (1.1-4.8); LYMPHOCYTES % (AUTO) 13.6 % (21-51); MEAN CORPUSCULAR HEMOGLOBIN 31.3 PG (27.0-31.0); MEAN CORPUSCULAR HGB CONC 34.4 g/dL (33.0-36.5); MEAN CORPUSCULAR VOLUME 91.1 FL (78-98); MEAN PLATELET VOLUME 8.1 FL (7.4-10.4); MONOCYTES # (AUTO) 1.4 X10'3 (0-0.9); MONOCYTES % (AUTO) 14.3 % (2-12); NEUTROPHILS # (AUTO) 6.8 X10'3 (1.8-7.7); NEUTROPHILS % (AUTO) 70.9 % (42-75); PLATELET COUNT 207 X10'3 (140-440); RED BLOOD COUNT 3.72 X10'6 (4.70-6.10); RED CELL DISTRIBUTION WIDTH 13.6 % (11.5-14.5); WHITE BLOOD COUNT 9.6 X10'3 (4.5-11.0)
[2018-11-09 06:05] LABS: ALANINE AMINOTRANSFERASE 27 U/L (12-78); ALBUMIN 2.7 G/DL (3.4-5.0); ALBUMIN/GLOBULIN RATIO 0.6 (1.1-1.5); ALKALINE PHOSPHATASE 70 IU/L (46-116); ANION GAP 8 (8-16); ASPARTATE AMINO TRANSFERASE 19 U/L (10-37); BILIRUBIN,TOTAL 0.8 MG/DL (0.1-1.0); BLOOD UREA NITROGEN 15 MG/DL (7-18); CALCIUM 8.1 MG/DL (8.5-10.1); CHLORIDE 103 MMOL/L (99-107); CREATININE 0.88 MG/DL (0.60-1.10); GLUCOSE 149 MG/DL (70-104); MAGNESIUM 2.1 MG/DL (1.5-2.4); PHOSPHORUS 2.1 MG/DL (2.3-4.5); POTASSIUM 3.6 MMOL/L (3.5-5.1); SODIUM 136 MMOL/L (135-145); TOTAL CARBON DIOXIDE 25.3 MMOL/L (24-32); TOTAL PROTEIN 7.2 G/DL (6.4-8.2); eGFR 83 ML/MIN
[2018-11-09] MEDS: heparin, porcine 5000 units/ml vial SQ SCH ×2 (07:23→20:46)
[2018-11-09] MEDS: lisinopril 20mg tablet PO SCH (07:30)
[2018-11-09] MEDS: lactobacillus rhamnosus 10,000 MMU CELLS/CAPSULE PO SCH ×2 (07:31→20:40)
[2018-11-09] MEDS: nystatin 15 GM powder TP SCH ×3 (07:31→20:48)
[2018-11-09] MEDS: METHYLPHENIDATE 30 MG PO SCH (07:38)
[2018-11-09] MEDS: K and/or MAG REPLACEMENT MC SCH (07:40)
--- NOTE | 2018-11-09 07:43 | NUR ---
Patient refused to let me turn him to assess back side. Patient is aware he has a wound to back side and I encouraged and educated him that we do need to turn Q2h while awake . Patient refused at this time said he will turn later and allow Vel his family member to apply barrier cream to back side when he comes back.
[2018-11-09 08:42] LABS: PARTIAL THROMBOPLASTIN TIME 37 SECONDS (22-32)
[2018-11-09] MEDS: insulin Lispro (HumaLOG) vial - multi-dose SQ SCH ×3 (09:20→19:03)
[2018-11-09] MEDS ORDERED: ringers solution, lacted 1,000 ML IV SCH (13:46)
[2018-11-09] MEDS ORDERED: ondansetron/PF 4mg/2ml inj IV PRN (13:50)
[2018-11-09] MEDS ORDERED: proCHLORperazine 10 MG/2 ml inj IV PRN (13:50)
[2018-11-09] MEDS ORDERED: morphine 4 MG/ML inj SYRINge IV PRN ×2 (13:50)
[2018-11-09] MEDS ORDERED: meperidine/PF 25mg/ml syringe IV PRN ×3 (13:50)
[2018-11-09] MEDS ORDERED: BUPIVAcaine/PF 2.5 mg/ml (0.25%) 30ml vial ONE (14:32)
[2018-11-09] MEDS ORDERED: fentaNYL/PF 50MCG/1 ML 2ML syringe ONE (15:46)
[2018-11-09] MEDS ORDERED: midazolam 2 mg/2 ml injection ONE (15:49)
[2018-11-09] MEDS ORDERED: propofol inj 20 ML IV ONE (15:54)
[2018-11-09] MEDS ORDERED: LIDOcaine 2% (20mg/ml) 5ml vial ONE (15:54)
[2018-11-09] MEDS ORDERED: ketorolac trometh. 30mg/ml inj. ONE (16:09)
--- NOTE | 2018-11-09 16:28 | NUR ---
Received from OR via SURGICAL BED , accompanied by Anesthesiologist REZA and report given by Anesthesiolgist. PATIENT WITH 20G PIV IN LEFT UE AND RIGHT UE. 10L MASK ON WITH 100% SATURATIONS. RIGHT KNEE DRESSING IS CDI AT THIS TIME. HEMOVAC INTACT AND MAINTAINING SUCTION. LEOS CATHETER IS CDI AT THIS TIME. NO URINE IN CATHETER. VSS. Addendum: 11/09/18 at 1634 by Robert Morrow RN, RN Amended: Links added.
--- NOTE | 2018-11-09 17:08 | NUR ---
ALL CRITERIA FOR TRANSFER TO THE FLOOR HAS BEEN ACHIEVED. VSS. BED LOW, CALL LIGHT AND VS. SET IN PLACE. RN PRESENT TO ACCEPT CARE. PATIENT RESTING COMFORTABLY IN BED. BELONGINGS SENT WITH PATIENT. DRESSINGS CDI. LETTY BOOGIE PRESENT TO ACCEPT CARE OF PATIENT. SET UP VS AND 2 RAILS UP. Addendum: 11/09/18 at 1716 by Robert Greenwood - LETTY SAENZ Amended: Links added.
--- NOTE | 2018-11-09 18:30 | NUR ---
Patient in room RUBEN 357. I have received report from Fiordaliza SAENZ and had the opportunity to ask questions and assume patient care. Patient resting in bed eyes closed respirations even. Will continue to monitor.
--- NOTE | 2018-11-09 18:43 | NUR ---
Called Dr Otto cell and left voice mail requesting a call back re: patient of on surgical floor. Wanting to notify Dr Otto patient pulled out Hemovac. Paged Dr Otto via his answering service with [employer]. Svetlana michel .
--- NOTE | 2018-11-09 18:53 | NUR ---
Dr Gabriel Oliva chain maker loom control for Dr Otto called back aware that patient pulled out Hemovac and no noticeable bleeding through dressin. Notified Dr Oliva I am monitoring for bleeding. No new orders received. Primary RN Svetlana and commissary representative Penny aware.
--- NOTE | 2018-11-09 19:20 | NUR ---
Problems reprioritized. Patient report given, questions answered & plan of care reviewed with Svetlana SAENZ.
--- NOTE | 2018-11-09 19:24 | NUR ---
Received return call from Dr. Pabon, notified him that the patient's drain was pulled out while sleeping. ASked what to watch for he states re-enforce dressing as needed for saturation. States that the incision is 2-2.5 inch and closed, should not drain but may drain from drain site. Will continue to monitor.
[2018-11-09] MEDS: CLOMIPRAMINE 50 MG PO SCH (20:40)
[2018-11-09] MEDS: normal saline 1000ml 1,000 ML IV SCH (20:40)
[2018-11-09] MEDS: insulin glargine (Lantus) pen - multi-dose SQ SCH (20:44)
--- NOTE | 2018-11-09 20:59 | NUR ---
Daughter, Alexus called and requested that I notify patient that she called and that she will be here in the morning. States that the patient is acting more childish, does not wear oxygen at home and has never been on insulin prior. Will continue to monitor.
[2018-11-10] VITALS: BP 126/54
[2018-11-10] MEDS: HYDROcodone/acetaminophen 10/325mg tab PO PRN ×3 (01:49→17:05)
[2018-11-10] MEDS ORDERED: VANCOMYCIN LEVEL IV ONE (03:30)
[2018-11-10 03:59] LABS: BASOPHILS % (AUTO) 0.5 % (0-1); EOSINOPHILS # (AUTO) 0.1 X10'3 (0-0.9); EOSINOPHILS % (AUTO) 1.3 % (0-6); HEMATOCRIT 31.6 % (42.0-52.0); HEMOGLOBIN 10.8 g/dl (14.0-17.9); LYMPHOCYTES # (AUTO) 1.1 X10'3 (1.1-4.8); LYMPHOCYTES % (AUTO) 13.5 % (21-51); MEAN CORPUSCULAR HEMOGLOBIN 30.9 PG (27.0-31.0); MEAN CORPUSCULAR HGB CONC 34.1 g/dL (33.0-36.5); MEAN CORPUSCULAR VOLUME 90.8 FL (78-98); MEAN PLATELET VOLUME 8.3 FL (7.4-10.4); MONOCYTES # (AUTO) 1.2 X10'3 (0-0.9); MONOCYTES % (AUTO) 15.1 % (2-12); NEUTROPHILS # (AUTO) 5.5 X10'3 (1.8-7.7); NEUTROPHILS % (AUTO) 69.6 % (42-75); PLATELET COUNT 221 X10'3 (140-440); RED BLOOD COUNT 3.48 X10'6 (4.70-6.10); RED CELL DISTRIBUTION WIDTH 13.4 % (11.5-14.5)
[2018-11-10 04:10] LABS: ALANINE AMINOTRANSFERASE 26 U/L (12-78); ALBUMIN 2.4 G/DL (3.4-5.0); ALBUMIN/GLOBULIN RATIO 0.5 (1.1-1.5); ALKALINE PHOSPHATASE 77 IU/L (46-116); ANION GAP 9 (8-16); ASPARTATE AMINO TRANSFERASE 19 U/L (10-37); BILIRUBIN,TOTAL 0.7 MG/DL (0.1-1.0); BLOOD UREA NITROGEN 16 MG/DL (7-18); BUN/CREATININE RATIO 19.3 (5.4-32.0); CHLORIDE 103 MMOL/L (99-107); CREATININE 0.83 MG/DL (0.60-1.10); GLUCOSE 134 MG/DL (70-104); PHOSPHORUS 2.1 MG/DL (2.3-4.5); POTASSIUM 3.6 MMOL/L (3.5-5.1); SODIUM 135 MMOL/L (135-145); TOTAL CARBON DIOXIDE 23.1 MMOL/L (24-32); TOTAL PROTEIN 6.8 G/DL (6.4-8.2); VANCOMYCIN,TROUGH 11.9 UG/ML (6.0-14.0); eGFR 89 ML/MIN
[2018-11-10 04:50] LABS: PLATELET ESTIMATE NORMAL; TOTAL CELLS COUNTED 100
--- NOTE | 2018-11-10 07:00 | NUR ---
Problems reprioritized. Patient report given, questions answered & plan of care reviewed with Isabel SAENZ.
[2018-11-10] MEDS: lactobacillus rhamnosus 10,000 MMU CELLS/CAPSULE PO SCH ×2 (07:49→19:50)
[2018-11-10] MEDS: nystatin 15 GM powder TP SCH ×3 (07:49→19:55)
[2018-11-10] MEDS: lisinopril 20mg tablet PO SCH (07:53)
[2018-11-10] MEDS: heparin, porcine 5000 units/ml vial SQ SCH ×2 (07:53→19:54)
[2018-11-10] MEDS: normal saline 1000ml 1,000 ML IV SCH ×2 (07:59→21:59)
[2018-11-10 08:00] VITALS: BP 136/60
[2018-11-10] MEDS: METHYLPHENIDATE 30 MG PO SCH (08:00)
[2018-11-10] MEDS: K and/or MAG REPLACEMENT MC SCH (08:00)
--- NOTE | 2018-11-10 13:05 | NUR ---
Reminder to family member to bring Home Med Methylpheniadate ER 30mg. Family will refill the prescription and pick it up today.
--- NOTE | 2018-11-10 17:51 | NUR ---
Methylphenidate ER 30mg is provided by family. Receipt to chart. Next dose will be given tomorrow morning per Pharmacy.
--- NOTE | 2018-11-10 18:30 | NUR ---
Patient in room RUBEN 357. I have received report from MARQUITA SAENZ and had the opportunity to ask questions and assume patient care.
[2018-11-10] MEDS: insulin Lispro (HumaLOG) vial - multi-dose SQ SCH (19:18)
[2018-11-10] MEDS: CLOMIPRAMINE 50 MG PO SCH (19:50)
[2018-11-10 20:00] VITALS: BP 143/60
[2018-11-10] MEDS: insulin glargine (Lantus) pen - multi-dose SQ SCH (21:39)
[2018-11-11] VITALS: BP 128/72
--- NOTE | 2018-11-11 06:28 | NUR ---
Problems reprioritized. Patient report given, questions answered & plan of care reviewed with MONET SAENZ.
[2018-11-11 06:39] LABS: BASOPHILS % (AUTO) 0.3 % (0-1); EOSINOPHILS # (AUTO) 0.1 X10'3 (0-0.9); EOSINOPHILS % (AUTO) 0.7 % (0-6); HEMATOCRIT 31.7 % (42.0-52.0); HEMOGLOBIN 10.8 g/dl (14.0-17.9); LYMPHOCYTES % (AUTO) 11.3 % (21-51); MEAN CORPUSCULAR HEMOGLOBIN 31.4 PG (27.0-31.0); MEAN CORPUSCULAR HGB CONC 34.2 g/dL (33.0-36.5); MEAN CORPUSCULAR VOLUME 91.8 FL (78-98); MEAN PLATELET VOLUME 8.8 FL (7.4-10.4); MONOCYTES # (AUTO) 1.5 X10'3 (0-0.9); NEUTROPHILS # (AUTO) 6.2 X10'3 (1.8-7.7); NEUTROPHILS % (AUTO) 70.7 % (42-75); PLATELET COUNT 243 X10'3 (140-440); RED BLOOD COUNT 3.45 X10'6 (4.70-6.10); RED CELL DISTRIBUTION WIDTH 13.6 % (11.5-14.5); WHITE BLOOD COUNT 8.7 X10'3 (4.5-11.0)
[2018-11-11 06:52] LABS: ALANINE AMINOTRANSFERASE 34 U/L (12-78); ALBUMIN 2.4 G/DL (3.4-5.0); ALBUMIN/GLOBULIN RATIO 0.5 (1.1-1.5); ALKALINE PHOSPHATASE 95 IU/L (46-116); ANION GAP 11 (8-16); ASPARTATE AMINO TRANSFERASE 27 U/L (10-37); BILIRUBIN,TOTAL 0.8 MG/DL (0.1-1.0); BLOOD UREA NITROGEN 16 MG/DL (7-18); BUN/CREATININE RATIO 21.3 (5.4-32.0); CALCIUM 8.1 MG/DL (8.5-10.1); CHLORIDE 102 MMOL/L (99-107); CREATININE 0.75 MG/DL (0.60-1.10); GLUCOSE 151 MG/DL (70-104); MAGNESIUM 2.1 MG/DL (1.5-2.4); PHOSPHORUS 2.2 MG/DL (2.3-4.5); POTASSIUM 3.8 MMOL/L (3.5-5.1); SODIUM 134 MMOL/L (135-145); TOTAL CARBON DIOXIDE 21.4 MMOL/L (24-32); eGFR > 90 ML/MIN
[2018-11-11 07:00] VITALS: BP 153/70
--- NOTE | 2018-11-11 07:00 | NUR ---
Patient in room RUBEN 357. I have received report from LORI SAENZ and had the opportunity to ask questions and assume patient care.
[2018-11-11] MEDS: heparin, porcine 5000 units/ml vial SQ SCH ×2 (08:00→19:20)
[2018-11-11] MEDS: lactobacillus rhamnosus 10,000 MMU CELLS/CAPSULE PO SCH ×2 (08:00→09:43)
[2018-11-11] MEDS: lisinopril 20mg tablet PO SCH ×2 (08:00→09:43)
[2018-11-11] MEDS: K and/or MAG REPLACEMENT MC SCH (08:00)
--- NOTE | 2018-11-11 08:00 | NUR ---
patient resistive to care, not wanting pills or shots. Family present latter in am, managed to encourage patient to take meds. will continue to monitor.
[2018-11-11] MEDS: nystatin 15 GM powder TP SCH ×3 (08:06→20:51)
[2018-11-11] MEDS: METHYLPHENIDATE 30 MG PO SCH (09:44)
[2018-11-11] MEDS: albuterol 2.5 MG/3 ML nebule NEB PRN ×3 (10:25→23:07)
[2018-11-11] MEDS ORDERED: albuterol 2.5 MG/3 ML nebule ONE (10:25)
[2018-11-11] MEDS: normal saline 1000ml 1,000 ML IV SCH ×2 (10:40→20:52)
[2018-11-11 11:00] VITALS: BP 113/52
--- NOTE | 2018-11-11 14:00 | NUR ---
patients daughter present, requesting different doctor, charge nurse aware and following up.Working with PT managed to sit in chair and ambulate few feet see report. IDC DC'd per Dr evans . IDC DC 1500hrs, patient has not voided at time of report.
[2018-11-11 18:00] VITALS: BP 136/55
--- NOTE | 2018-11-11 18:22 | NUR ---
Patient in room RUBEN 357. I have received report from LETTY Aldrich and had the opportunity to ask questions and assume patient care.
--- NOTE | 2018-11-11 18:44 | NUR ---
Problems reprioritized. Patient report given, questions answered & plan of care reviewed with Jenise SAENZ.
[2018-11-11] MEDS: insulin Lispro (HumaLOG) vial - multi-dose SQ SCH (19:16)
--- NOTE | 2018-11-11 20:00 | NUR ---
Patient is refusing his Heparin SubQ injection.
[2018-11-11] MEDS: insulin glargine (Lantus) pen - multi-dose SQ SCH (20:50)
[2018-11-11] MEDS: CLOMIPRAMINE 50 MG PO SCH (20:51)
--- NOTE | 2018-11-11 21:11 | NUR ---
Patient has elevated RR of 26. RT came to his room to assess him and he refused to have a breathing tx. When doing scheduled 2100 meds, pt was asked again if he would like RT to be called and he refused.
--- NOTE | 2018-11-11 23:03 | NUR ---
Patients RR 36, short of breath and wheezy. Patients HOB elevated more and RT paged to come assess patient and give breathing tx.
[2018-11-12] VITALS: BP 149/60
--- NOTE | 2018-11-12 00:25 | NUR ---
Patient is refusing any pain medications when offered.
[2018-11-12 06:03] LABS: BASOPHILS % (AUTO) 0.3 % (0-1); EOSINOPHILS % (AUTO) 0.4 % (0-6); HEMATOCRIT 31.9 % (42.0-52.0); HEMOGLOBIN 10.8 g/dl (14.0-17.9); LYMPHOCYTES # (AUTO) 0.9 X10'3 (1.1-4.8); LYMPHOCYTES % (AUTO) 9.7 % (21-51); MEAN CORPUSCULAR HEMOGLOBIN 30.7 PG (27.0-31.0); MEAN CORPUSCULAR HGB CONC 33.9 g/dL (33.0-36.5); MEAN CORPUSCULAR VOLUME 90.6 FL (78-98); MEAN PLATELET VOLUME 8.6 FL (7.4-10.4); MONOCYTES # (AUTO) 1.8 X10'3 (0-0.9); MONOCYTES % (AUTO) 18.4 % (2-12); NEUTROPHILS # (AUTO) 6.9 X10'3 (1.8-7.7); NEUTROPHILS % (AUTO) 71.2 % (42-75); PLATELET COUNT 279 X10'3 (140-440); RED BLOOD COUNT 3.52 X10'6 (4.70-6.10); RED CELL DISTRIBUTION WIDTH 13.4 % (11.5-14.5); WHITE BLOOD COUNT 9.8 X10'3 (4.5-11.0)
[2018-11-12 06:28] LABS: ALANINE AMINOTRANSFERASE 46 U/L (12-78); ALBUMIN 2.3 G/DL (3.4-5.0); ALBUMIN/GLOBULIN RATIO 0.5 (1.1-1.5); ALKALINE PHOSPHATASE 103 IU/L (46-116); ANION GAP 12 (8-16); ASPARTATE AMINO TRANSFERASE 61 U/L (10-37); BLOOD UREA NITROGEN 16 MG/DL (7-18); BUN/CREATININE RATIO 21.6 (5.4-32.0); CALCIUM 8.1 MG/DL (8.5-10.1); CHLORIDE 101 MMOL/L (99-107); CREATININE 0.74 MG/DL (0.60-1.10); GLUCOSE 137 MG/DL (70-104); MAGNESIUM 2.1 MG/DL (1.5-2.4); PHOSPHORUS 2.4 MG/DL (2.3-4.5); POTASSIUM 3.4 MMOL/L (3.5-5.1); SODIUM 135 MMOL/L (135-145); TOTAL CARBON DIOXIDE 22.4 MMOL/L (24-32); TOTAL PROTEIN 6.9 G/DL (6.4-8.2); eGFR > 90 ML/MIN
--- NOTE | 2018-11-12 06:37 | NUR ---
Problems reprioritized. Patient report given, questions answered & plan of care reviewed with LETTY Hu.
[2018-11-12 07:04] LABS: PLATELET ESTIMATE NORMAL; TOTAL CELLS COUNTED 100
[2018-11-12 07:28] VITALS: BP 115/52
[2018-11-12] MEDS: K and/or MAG REPLACEMENT MC SCH (08:00)
[2018-11-12] MEDS: heparin, porcine 5000 units/ml vial SQ SCH (08:00)
[2018-11-12] MEDS: lactobacillus rhamnosus 10,000 MMU CELLS/CAPSULE PO SCH ×2 (08:46→19:27)
[2018-11-12] MEDS: lisinopril 20mg tablet PO SCH (08:46)
[2018-11-12] MEDS: nystatin 15 GM powder TP SCH ×3 (08:48→19:28)
[2018-11-12] MEDS: METHYLPHENIDATE 30 MG PO SCH (08:50)
[2018-11-12] MEDS: insulin Lispro (HumaLOG) vial - multi-dose SQ SCH (08:58)
[2018-11-12 12:19] VITALS: BP 125/53
--- NOTE | 2018-11-12 13:00 | NUR ---
Photos taken of wounds, only one of the 4 were copied on memory card, camera malfunction. Will pass on or attempt to take more by end of shift. Patient very painful with movement and was done by the time dressings and photos taken.
[2018-11-12] MEDS: normal saline 1000ml 1,000 ML IV SCH ×2 (13:20→23:21)
[2018-11-12] MEDS ORDERED: potassium CL 10mEq/100ml bag 100 ML IV PRN (13:40)
[2018-11-12] MEDS ORDERED: magnesium Cl slow-release 64mg tablet PO PRN (13:40)
[2018-11-12] MEDS ORDERED: potassium Cl 20 mEq SR tablet PO PRN (13:40)
[2018-11-12] MEDS ORDERED: magnesium 4gm in 100ml NS 100 ML IV PRN (13:40)
[2018-11-12] MEDS: albuterol 2.5 MG/3 ML nebule NEB PRN ×2 (14:14→19:53)
--- NOTE | 2018-11-12 14:55 | NUR ---
Patient ate fruit only Addendum: 11/12/18 at 1455 by Mayte Arellano RN Amended: Links added.
--- NOTE | 2018-11-12 16:39 | NUR ---
Initial: Pt admit w/ chronic osteomyelitis, BLE cellulitis w/ multiple ulcers, and R knee septic arthritis s/p I&D R knee. PO 75-100% heart healthy/carb controlled meals. Double proteins TIDWM added given additional protein needs for healing w/ morbid obesity. Pt undergoing wound care during RD visit; will need high protein ed prior to d/c. LBM 11/08. Will continue to monitor. Rec: 1. continue heart healthy/carb controlled diet 2. double proteins TIDWM 3. high protein ed prior to d/c 4. wt per rx Addendum: 11/12/18 at [address] Amended: Links added.
[2018-11-12] MEDS ORDERED: ibuprofen 200mg tablet PO PRN (17:15)
--- NOTE | 2018-11-12 18:17 | NUR ---
Problems reprioritized. Patient report given, questions answered & plan of care reviewed with Alaina SAENZ.
[2018-11-12] MEDS: CLOMIPRAMINE 50 MG PO SCH (19:28)
[2018-11-12] MEDS: potassium Cl 20 mEq SR tablet PO PRN (19:28)
[2018-11-12 20:00] VITALS: BP 145/69
[2018-11-13] VITALS: BP 149/82
--- NOTE | 2018-11-13 06:17 | NUR ---
Problems reprioritized. Patient report given, questions answered & plan of care reviewed with LETTY Hu.
[2018-11-13 08:00] VITALS: BP 144/70
[2018-11-13] MEDS: K and/or MAG REPLACEMENT MC SCH (08:00)
[2018-11-13] MEDS: METHYLPHENIDATE 30 MG PO SCH (08:25)
[2018-11-13] MEDS: clopidogrel 75mg tablet PO SCH (08:33)
[2018-11-13] MEDS: lisinopril 20mg tablet PO SCH (08:33)
[2018-11-13] MEDS: lactobacillus rhamnosus 10,000 MMU CELLS/CAPSULE PO SCH ×2 (08:33→20:33)
[2018-11-13] MEDS: nystatin 15 GM powder TP SCH ×3 (08:34→20:33)
--- NOTE | 2018-11-13 08:58 | NUR ---
Dr. Oliva in to see patient, dressing on right knee taken down and assessed. Island dressing applied, order received to change Q3days PRN saturated.
[2018-11-13 09:25] LABS: BASOPHILS # (AUTO) 0.1 X10'3 (0-0.2); BASOPHILS % (AUTO) 0.7 % (0-1); EOSINOPHILS # (AUTO) 0.1 X10'3 (0-0.9); EOSINOPHILS % (AUTO) 1.2 % (0-6); HEMATOCRIT 34.2 % (42.0-52.0); HEMOGLOBIN 11.5 g/dl (14.0-17.9); LYMPHOCYTES # (AUTO) 0.9 X10'3 (1.1-4.8); LYMPHOCYTES % (AUTO) 10.5 % (21-51); MEAN CORPUSCULAR HEMOGLOBIN 30.6 PG (27.0-31.0); MEAN CORPUSCULAR HGB CONC 33.7 g/dL (33.0-36.5); MEAN PLATELET VOLUME 8.5 FL (7.4-10.4); MONOCYTES # (AUTO) 1.5 X10'3 (0-0.9); MONOCYTES % (AUTO) 17.7 % (2-12); NEUTROPHILS # (AUTO) 6.1 X10'3 (1.8-7.7); NEUTROPHILS % (AUTO) 69.9 % (42-75); PLATELET COUNT 304 X10'3 (140-440); RED BLOOD COUNT 3.76 X10'6 (4.70-6.10); RED CELL DISTRIBUTION WIDTH 13.6 % (11.5-14.5); WHITE BLOOD COUNT 8.7 X10'3 (4.5-11.0)
[2018-11-13 09:31] LABS: MAGNESIUM 2.1 MG/DL (1.5-2.4)
[2018-11-13 10:59] LABS: ALBUMIN 2.3 G/DL (3.4-5.0); ANION GAP 10 (8-16); BLOOD UREA NITROGEN 14 MG/DL (7-18); BUN/CREATININE RATIO 21.5 (5.4-32.0); CALCIUM 8.1 MG/DL (8.5-10.1); CHLORIDE 103 MMOL/L (99-107); CREATININE 0.65 MG/DL (0.60-1.10); GLUCOSE 147 MG/DL (70-104); POTASSIUM 3.7 MMOL/L (3.5-5.1); SODIUM 137 MMOL/L (135-145); TOTAL CARBON DIOXIDE 23.7 MMOL/L (24-32); eGFR > 90 ML/MIN
[2018-11-13 11:59] VITALS: BP 138/62
[2018-11-13] MEDS ORDERED: HYDROcodone/acetaminophen 5mg/325mg tablet PO PRN (12:30)
[2018-11-13] MEDS ORDERED: HYDROcodone/acetaminophen 10/325mg tab PO PRN (12:30)
[2018-11-13] MEDS: mineral oil/petrolatum, white cream 113gm jar TP SCH (13:00)
[2018-11-13] MEDS: normal saline 1000ml 1,000 ML IV SCH (13:25)
--- NOTE | 2018-11-13 18:08 | NUR ---
Problems reprioritized. Patient report given, questions answered & plan of care reviewed with Alaina Roberson RN.
[2018-11-13 20:00] VITALS: BP 157/84
[2018-11-13] MEDS: CLOMIPRAMINE 50 MG PO SCH (20:33)
[2018-11-13] MEDS: albuterol 2.5 MG/3 ML nebule NEB PRN (20:52)
[2018-11-14] VITALS: BP 153/69
[2018-11-14] MEDS: normal saline 1000ml 1,000 ML IV SCH (04:42)
[2018-11-14 06:10] LABS: BASOPHILS # (AUTO) 0.1 X10'3 (0-0.2); BASOPHILS % (AUTO) 0.7 % (0-1); EOSINOPHILS # (AUTO) 0.1 X10'3 (0-0.9); HEMATOCRIT 32.3 % (42.0-52.0); LYMPHOCYTES # (AUTO) 1.4 X10'3 (1.1-4.8); LYMPHOCYTES % (AUTO) 13.6 % (21-51); MEAN CORPUSCULAR HEMOGLOBIN 30.6 PG (27.0-31.0); MEAN CORPUSCULAR HGB CONC 34.1 g/dL (33.0-36.5); MEAN CORPUSCULAR VOLUME 89.8 FL (78-98); MONOCYTES # (AUTO) 1.8 X10'3 (0-0.9); MONOCYTES % (AUTO) 17.9 % (2-12); NEUTROPHILS # (AUTO) 6.6 X10'3 (1.8-7.7); NEUTROPHILS % (AUTO) 66.8 % (42-75); PLATELET COUNT 335 X10'3 (140-440); RED CELL DISTRIBUTION WIDTH 13.8 % (11.5-14.5); WHITE BLOOD COUNT 9.9 X10'3 (4.5-11.0)
[2018-11-14 06:19] LABS: ALBUMIN 2.1 G/DL (3.4-5.0); ANION GAP 11 (8-16); BLOOD UREA NITROGEN 14 MG/DL (7-18); BUN/CREATININE RATIO 20.6 (5.4-32.0); CALCIUM 7.6 MG/DL (8.5-10.1); CHLORIDE 102 MMOL/L (99-107); CREATININE 0.68 MG/DL (0.60-1.10); GLUCOSE 145 MG/DL (70-104); POTASSIUM 3.2 MMOL/L (3.5-5.1); SODIUM 135 MMOL/L (135-145); TOTAL CARBON DIOXIDE 22.4 MMOL/L (24-32); eGFR > 90 ML/MIN
--- NOTE | 2018-11-14 06:23 | NUR ---
Problems reprioritized. Patient report given, questions answered & plan of care reviewed with LETTY Salvador.
--- NOTE | 2018-11-14 06:30 | NUR ---
Patient in room RUBEN 357. I have received report from Alaina Roberson RN and had the opportunity to ask questions and assume patient care.
[2018-11-14] MEDS ORDERED: pantoprazole 40mg Tablet.DR PO SCH (07:30)
[2018-11-14] MEDS: K and/or MAG REPLACEMENT MC SCH (08:00)
[2018-11-14] MEDS: lactobacillus rhamnosus 10,000 MMU CELLS/CAPSULE PO SCH (08:47)
[2018-11-14] MEDS: clopidogrel 75mg tablet PO SCH (08:48)
[2018-11-14] MEDS: lisinopril 20mg tablet PO SCH (08:48)
[2018-11-14] MEDS: METHYLPHENIDATE 30 MG PO SCH (09:03)
[2018-11-14 09:13] VITALS: BP 134/71
[2018-11-14] MEDS: nystatin 15 GM powder TP SCH (10:23)
[2018-11-14] MEDS: mineral oil/petrolatum, white cream 113gm jar TP SCH (10:23)
[2018-11-14] MEDS: potassium Cl 20 mEq SR tablet PO PRN (10:30)
[2018-11-14 11:00] VITALS: BP_SYST 108; BP_SYST 127; BP_DIAS 58; BP_DIAS 68
--- NOTE | 2018-11-14 15:00 | NUR ---
Patient tranferred to [facility], report was called to recieving [employer]. Patient was sent with all belongings found in room at discharge. Patient home medication went with patient as well. Pictures of all wound were taken on discharge except for the picture of the right upper thigh which was not visible because patient pain level was too high to position for proper photo. Patient was transported via [employer]
[2018-11-15] MEDS ORDERED: VANCOMYCIN LEVEL IV ONE (03:30)
== END 2018-11-14 14:13 | DRG 854 ==
LOC: ER 08:10 → SUR 3N 16:14 → CMPBEDREQ 19:27
PROVIDERS: ADMIT Family Medicine; ATTEND Hospitalist
PROC: 0S9C0ZZ Drainage of Right Knee Joint, Open Approach (ICD-10-PCS; principal; 2018-11-09 15:40)
PROC: 02HV33Z Insertion of Infusion Device into Superior Vena Cava, Percutaneous Approach (ICD-10-PCS; 2018-11-14)
PROC: B548ZZA Ultrasonography of Superior Vena Cava, Guidance (ICD-10-PCS; 2018-11-14)
PROC: 4A02X4A Measurement of Cardiac Electrical Activity, Guidance, External Approach (ICD-10-PCS; 2018-11-14)
DX: A41.02 Sepsis due to Methicillin resistant Staphylococcus aureus (principal); L03.115 Cellulitis of right lower limb; L03.116 Cellulitis of left lower limb; E66.2 Morbid (severe) obesity with alveolar hypoventilation; M86.661 Other chronic osteomyelitis, right tibia and fibula; M00.9 Pyogenic arthritis, unspecified; Z68.41 Body mass index [BMI] 40.0-44.9, adult; L97.329 Non-pressure chronic ulcer of left ankle with unspecified severity; L97.319 Non-pressure chronic ulcer of right ankle with unspecified severity; M86.662 Other chronic osteomyelitis, left tibia and fibula; E11.69 Type 2 diabetes mellitus with other specified complication; E11.622 Type 2 diabetes mellitus with other skin ulcer; I87.2 Venous insufficiency (chronic) (peripheral); G47.419 Narcolepsy without cataplexy; I10 Essential (primary) hypertension; I25.10 Atherosclerotic heart disease of native coronary artery without angina pectoris; I48.91 Unspecified atrial fibrillation; Z66 Do not resuscitate; R04.0 Epistaxis; Z80.0 Family history of malignant neoplasm of digestive organs; Z98.49 Cataract extraction status, unspecified eye; Z87.891 Personal history of nicotine dependence; Z86.718 Personal history of other venous thrombosis and embolism; Z79.02 Long term (current) use of antithrombotics/antiplatelets; Z79.84 Long term (current) use of oral hypoglycemic drugs; Z79.899 Other long term (current) drug therapy
CPT/HCPCS: 36415; 36569; 71045; 73564; 76937; 80048; 80053; 80061; 80202; 81001; 82948; 83036; 83605; 83735; 84100; 84145; 85025; 85610; 85651; 85730; 86140; 87040; 87070; 87075; 87077; 87081; 87102; 87186; 89051; 89060; 93005; 94640; 94667; 94760; 96361; 96365; 96375; 97110; 97161; 97530; 97535; 99285; A4618; A6446; A6449; A7000; G0378; J0692; J1644; J1815; J1885; J2001; J2250; J2270; J2704; J3010; J3370; J3490; J7030; J7042; J7120

== ENCOUNTER 2020-07-08 11:43 | Emergency (ER) | payer MEDICARE, OTHER ==
[~2020-07-08] VITALS: Ht 182.9 cm; Wt 135.3 kg
[~2020-07-08 11:43] MED LIST changes: -ALBU8HFA PO; +AMA1T PO; -CIPR-259 PO; +CLOP75TA34 PO; -CLOP75TA35 PO; -FURO-150 PO; -GUAI120L55 PO; -LISI-600 PO; +LISI20TA28 PO; -METF500T20 PO; -METH30CP PO; +METH40CP PO; +METR500T PO
[2020-07-08 12:04] VITALS: BP 145/66
[2020-07-08] MEDS ORDERED: LIDOcaine 2% 10ml TOPICAL JELLY (Urojet) TP ONE (12:15)
[2020-07-08 12:40] LABS: BASOPHILS # (AUTO) 0.1 X10'3 (0-0.2); BASOPHILS % (AUTO) 0.9 % (0-1); EOSINOPHILS # (AUTO) 0.3 X10'3 (0-0.9); EOSINOPHILS % (AUTO) 3.2 % (0-6); HEMOGLOBIN 11.4 g/dl (14.0-17.9); LYMPHOCYTES # (AUTO) 2.9 X10'3 (1.1-4.8); LYMPHOCYTES % (AUTO) 35.9 % (21-51); MEAN CORPUSCULAR HEMOGLOBIN 32.3 PG (27.0-31.0); MEAN CORPUSCULAR HGB CONC 33.5 g/dL (33.0-36.5); MEAN CORPUSCULAR VOLUME 96.6 FL (78-98); MEAN PLATELET VOLUME 8.1 FL (7.4-10.4); MONOCYTES # (AUTO) 0.9 X10'3 (0-0.9); MONOCYTES % (AUTO) 11.6 % (2-12); NEUTROPHILS # (AUTO) 3.9 X10'3 (1.8-7.7); NEUTROPHILS % (AUTO) 48.4 % (42-75); PLATELET COUNT 301 X10'3 (140-440); RED BLOOD COUNT 3.52 X10'6 (4.70-6.10); RED CELL DISTRIBUTION WIDTH 14.5 % (11.5-14.5); WHITE BLOOD COUNT 8.1 X10'3 (4.5-11.0)
[2020-07-08 12:51] LABS: ALANINE AMINOTRANSFERASE 26 U/L (12-78); ALBUMIN 3.5 G/DL (3.4-5.0); ALBUMIN/GLOBULIN RATIO 0.9 (1.1-1.5); ALKALINE PHOSPHATASE 79 IU/L (46-116); ANION GAP 11 (8-16); ASPARTATE AMINO TRANSFERASE 18 U/L (10-37); BILIRUBIN,TOTAL 0.2 MG/DL (0.1-1.0); BLOOD UREA NITROGEN 24 MG/DL (7-18); BUN/CREATININE RATIO 22.9 (5.4-32.0); CALCIUM 8.5 MG/DL (8.5-10.1); CHLORIDE 104 MMOL/L (99-107); CREATININE 1.05 MG/DL (0.60-1.10); GLUCOSE 164 MG/DL (70-104); SODIUM 138 MMOL/L (135-145); TOTAL CARBON DIOXIDE 23.5 MMOL/L (24-32); TOTAL PROTEIN 7.6 G/DL (6.4-8.2); eGFR 68 ML/MIN
[2020-07-08] MEDS ORDERED: MESSAGE TO NURSING PO SCH (14:00)
[2020-07-08] MEDS ORDERED: iohexol 300mg/ml 100ml inj. ONE (14:00)
[2020-07-08 15:36] LABS: CLARITY,URINE CLOUDY (Clear); COLOR,URINE BROWN (Yellow); GLUCOSE, URINE 100 mg/dl (Neg); KETONES,URINE TRACE mg/dl (Neg); LEUKOCYTE ESTERASE ,URINE NEGATIVE (Neg); NITRITES, URINE NEGATIVE (Neg); OCCULT BLOOD,URINE LARGE (Neg); PROTEIN,URINE 100 mg/dl (Neg); UROBILINOGEN,URINE 0.2 E.U/dL (0.2-1.0)
[2020-07-08 15:51] LABS: UA COLLECTION TYPE FOLEY CATH
[2020-07-08 15:53] LABS: RBC,URINE TNTC /HPF (0-2)
[2020-07-08 15:54] LABS: BACTERIA,URINE 2+ /HPF (Neg); MUCUS STRANDS FEW /LPF (Neg); SQUAMOUS EPITHELIAL CELL,UR FEW /LPF (FEW); TRANSITIONAL EPI CELLS,URINE FEW /HPF
[2020-07-08] MEDS ORDERED: FLO0.4C PO (16:03)
== END 2020-07-08 16:21 | disposition home or self-care (01) ==
LOC: ER 11:44
DX: R31.0 Gross hematuria (principal); N13.9 Obstructive and reflux uropathy, unspecified; N21.0 Calculus in bladder; R32 Unspecified urinary incontinence; I48.91 Unspecified atrial fibrillation; I10 Essential (primary) hypertension; E11.9 Type 2 diabetes mellitus without complications; Z86.718 Personal history of other venous thrombosis and embolism; Z98.890 Other specified postprocedural states; Z79.899 Other long term (current) drug therapy
CPT/HCPCS: 36415; 51702; 74178; 80053; 81001; 85025; 87088; 99285; Q9967

== ENCOUNTER 2020-11-05 13:09 | Emergency (ER) | payer MEDICARE, OTHER ==
[~2020-11-05] VITALS: Ht 188 cm; Wt 147.7 kg
[~2020-11-05 13:09] MED LIST changes: +ALBU8.5H17 INH; -AMA1T PO; +FINA5TAB11 PO; +FLO0.4C PO; +LACT1CAP26 PO; +LATA2.5D14 EACHEYE; -METR500T PO
[2020-11-05 15:56] LABS: BASOPHILS % (AUTO) 0.3 % (0-1); EOSINOPHILS # (AUTO) 0.2 X10'3 (0-0.9); EOSINOPHILS % (AUTO) 1.7 % (0-6); HEMATOCRIT 38.8 % (42.0-52.0); HEMOGLOBIN 13.5 g/dl (14.0-17.9); LYMPHOCYTES # (AUTO) 1.7 X10'3 (1.1-4.8); LYMPHOCYTES % (AUTO) 17.2 % (21-51); MEAN CORPUSCULAR HEMOGLOBIN 31.6 PG (27.0-31.0); MEAN CORPUSCULAR HGB CONC 34.8 g/dL (33.0-36.5); MEAN CORPUSCULAR VOLUME 90.8 FL (78-98); MEAN PLATELET VOLUME 8.2 FL (7.4-10.4); MONOCYTES # (AUTO) 1.3 X10'3 (0-0.9); MONOCYTES % (AUTO) 12.6 % (2-12); NEUTROPHILS # (AUTO) 6.8 X10'3 (1.8-7.7); NEUTROPHILS % (AUTO) 68.2 % (42-75); PLATELET COUNT 238 X10'3 (140-440); RED BLOOD COUNT 4.27 X10'6 (4.70-6.10)
[2020-11-05 16:16] LABS: CHLORIDE 103 MMOL/L (99-107); GLUCOSE 142 MG/DL (70-104); POTASSIUM 4.1 MMOL/L (3.5-5.1); SODIUM 138 MMOL/L (135-145); TOTAL CARBON DIOXIDE 24.6 MMOL/L (24-32)
[2020-11-05 16:17] LABS: ALANINE AMINOTRANSFERASE 22 U/L (12-78); ALBUMIN 3.4 G/DL (3.4-5.0); ALBUMIN/GLOBULIN RATIO 0.8 (1.1-1.5); ALKALINE PHOSPHATASE 69 IU/L (46-116); ANION GAP 10 (8-16); ASPARTATE AMINO TRANSFERASE 13 U/L (10-37); BILIRUBIN,TOTAL 0.5 MG/DL (0.1-1.0); BLOOD UREA NITROGEN 18 MG/DL (7-18); BUN/CREATININE RATIO 20.2 (5.4-32.0); CALCIUM 8.4 MG/DL (8.5-10.1); CREATININE 0.89 MG/DL (0.60-1.10); TOTAL PROTEIN 7.7 G/DL (6.4-8.2); eGFR 82 ML/MIN
[2020-11-05 17:08] LABS: CLARITY,URINE CLOUDY (Clear); GLUCOSE, URINE NEGATIVE (Neg); KETONES,URINE NEGATIVE (Neg); LEUKOCYTE ESTERASE ,URINE LARGE (Neg); NITRITES, URINE POSITIVE (Neg); OCCULT BLOOD,URINE SMALL (Neg); PROTEIN,URINE 100 mg/dl (Neg)
[2020-11-05 17:21] LABS: COLOR,URINE DARK YELLOW (Yellow); UA COLLECTION TYPE FOLEY CATH
[2020-11-05 17:22] LABS: RBC,URINE 0-2 /HPF (0-2); WBC,URINE TNTC /HPF (0-4)
[2020-11-05 17:23] LABS: AMORPHOUS PHOSPHATES 1+; BACTERIA,URINE 4+ /HPF (Neg); MUCUS STRANDS FEW /LPF (Neg); SQUAMOUS EPITHELIAL CELL,UR FEW /LPF (FEW)
[2020-11-05] MEDS ORDERED: apixaban 5mg tablet PO ONE (18:05)
[2020-11-05] MEDS ORDERED: SULF1TAB45 PO (18:05)
[2020-11-05] MEDS ORDERED: APIX5TAB3 PO (18:05)
[2020-11-05] MEDS ORDERED: sulfamethoxazole/trimethoprim DS (800/160mg) tablet PO ONE (18:35)
[2020-11-05 18:37] VITALS: BP 127/68
--- NOTE | 2020-11-06 11:15 | NUR ---
Patient called regarding pharmacy stated that total tablets prescribed for eliquis was wrong and that Girma Mandel in [place] needs get have PA change total. I called and changed total of eliquis to #28: Eliquis 5 mg 2 tab PO BID x7 days which total 28 Attempted to call patient back per her request at which there was no answer.
== END 2020-11-05 19:09 | disposition home or self-care (01) ==
LOC: ER 13:10
DX: N39.0 Urinary tract infection, site not specified (principal); I82.401 Acute embolism and thrombosis of unspecified deep veins of right lower extremity; R41.82 Altered mental status, unspecified; R53.1 Weakness; I48.91 Unspecified atrial fibrillation; I10 Essential (primary) hypertension; E11.9 Type 2 diabetes mellitus without complications; Z98.890 Other specified postprocedural states; Z79.2 Long term (current) use of antibiotics; Z79.899 Other long term (current) drug therapy
CPT/HCPCS: 36415; 80053; 81001; 84145; 85025; 87077; 87088; 87186; 93005; 93971; 99285

== ENCOUNTER 2020-11-17 00:32 | Emergency (ER) | payer MEDICARE, OTHER ==
[~2020-11-17] VITALS: Ht 182.9 cm; Wt 136.6 kg
[~2020-11-17 00:32] MED LIST changes: +APIX5TAB3 PO
[2020-11-17 02:49] LABS: BASOPHILS % (AUTO) 0.3 % (0-1); EOSINOPHILS # (AUTO) 0.1 X10'3 (0-0.9); EOSINOPHILS % (AUTO) 0.6 % (0-6); HEMATOCRIT 47.2 % (42.0-52.0); HEMOGLOBIN 15.5 g/dl (14.0-17.9); LYMPHOCYTES # (AUTO) 1.5 X10'3 (1.1-4.8); LYMPHOCYTES % (AUTO) 9.9 % (21-51); MEAN CORPUSCULAR HEMOGLOBIN 30.3 PG (27.0-31.0); MEAN CORPUSCULAR HGB CONC 32.8 g/dL (33.0-36.5); MEAN CORPUSCULAR VOLUME 92.6 FL (78-98); MEAN PLATELET VOLUME 8.3 FL (7.4-10.4); MONOCYTES # (AUTO) 1.3 X10'3 (0-0.9); MONOCYTES % (AUTO) 8.1 % (2-12); NEUTROPHILS # (AUTO) 12.5 X10'3 (1.8-7.7); NEUTROPHILS % (AUTO) 81.1 % (42-75); PLATELET COUNT 282 X10'3 (140-440); WHITE BLOOD COUNT 15.4 X10'3 (4.5-11.0)
[2020-11-17 03:03] LABS: ALANINE AMINOTRANSFERASE 27 U/L (12-78); ALBUMIN 3.7 G/DL (3.4-5.0); ALBUMIN/GLOBULIN RATIO 0.8 (1.1-1.5); ALKALINE PHOSPHATASE 103 IU/L (46-116); ANION GAP 15 (8-16); ASPARTATE AMINO TRANSFERASE 19 U/L (10-37); BILIRUBIN,TOTAL 0.4 MG/DL (0.1-1.0); BLOOD UREA NITROGEN 25 MG/DL (7-18); BUN/CREATININE RATIO 18.5 (5.4-32.0); CALCIUM 9.1 MG/DL (8.5-10.1); CHLORIDE 102 MMOL/L (99-107); CREATININE 1.35 MG/DL (0.60-1.10); GLUCOSE 159 MG/DL (70-104); LIPASE 113 U/L (73-393); POTASSIUM 4.3 MMOL/L (3.5-5.1); SODIUM 140 MMOL/L (135-145); TOTAL CARBON DIOXIDE 23.3 MMOL/L (24-32); TOTAL PROTEIN 8.4 G/DL (6.4-8.2); eGFR 51 ML/MIN
[2020-11-17] MEDS ORDERED: normal saline 1000ML IV soln IVB ONE (03:15)
[2020-11-17 04:37] VITALS: BP 147/88
--- NOTE | 2020-11-17 04:40 | NUR ---
PT SITTING ON XIPWIRE READING BOOK - NO ACUTE DISTRESS NOTED. PT STATES, "CAN I GO HOME?" ADVISED PT WE WERE WAITING ON SOME LABS WELL HIS FLUIDS TO INFUSE.
[2020-11-17 04:57] LABS: CREATINE KINASE 54 U/L (39-308)
== END 2020-11-17 06:58 | disposition home or self-care (01) ==
LOC: ER 00:33
DX: N23 Unspecified renal colic (principal); N39.0 Urinary tract infection, site not specified; I48.91 Unspecified atrial fibrillation; I10 Essential (primary) hypertension; F03.91 Unspecified dementia, unspecified severity, with behavioral disturbance; E11.9 Type 2 diabetes mellitus without complications; Z86.718 Personal history of other venous thrombosis and embolism; Z87.442 Personal history of urinary calculi; Z98.890 Other specified postprocedural states; Z79.899 Other long term (current) drug therapy
CPT/HCPCS: 36415; 74176; 80053; 82550; 83690; 85025; 96360; 99284; J7030

== ENCOUNTER 2021-02-15 03:59 | Emergency (ER) | payer MEDICARE, OTHER ==
[~2021-02-15] VITALS: Ht 177.8 cm; Wt 138.6 kg
[2021-02-15 04:53] VITALS: BP 154/86
[2021-02-15 05:45] LABS: CLARITY,URINE CLOUDY (Clear); COLOR,URINE YELLOW (Yellow); GLUCOSE, URINE 100 mg/dl (Neg); KETONES,URINE NEGATIVE (Neg); LEUKOCYTE ESTERASE ,URINE MODERATE (Neg); NITRITES, URINE POSITIVE (Neg); OCCULT BLOOD,URINE LARGE (Neg); PROTEIN,URINE >=300 mg/dl (Neg); UROBILINOGEN,URINE 0.2 E.U/dL (0.2-1.0)
[2021-02-15 05:47] LABS: UA COLLECTION TYPE FOLEY CATH
[2021-02-15 05:50] LABS: WBC,URINE TNTC /HPF (0-4)
[2021-02-15 05:51] LABS: BACTERIA,URINE 4+ /HPF (Neg); MUCUS STRANDS NONE SEEN /LPF (Neg); RBC,URINE 50-100 /HPF (0-2); SQUAMOUS EPITHELIAL CELL,UR NONE SEEN /LPF (FEW)
[2021-02-15] MEDS ORDERED: sulfamethoxazole/trimethoprim DS (800/160mg) tablet PO ONE (06:05)
[2021-02-15] MEDS ORDERED: SULF1TAB49 PO (06:06)
== END 2021-02-15 06:47 | disposition home or self-care (01) ==
LOC: ER 04:00
DX: N39.0 Urinary tract infection, site not specified (principal)
CPT/HCPCS: 51702; 81001; 87088; 99284

== ENCOUNTER 2021-03-28 11:24 | Emergency (ER) | payer MEDICARE, OTHER ==
[~2021-03-28] VITALS: Ht 182.9 cm; Wt 136.4 kg
[2021-03-28 11:41] VITALS: BP 108/78
[2021-03-28 16:32] LABS: CLARITY,URINE CLOUDY (Clear); COLOR,URINE YELLOW (Yellow); GLUCOSE, URINE 250 mg/dl (Neg); KETONES,URINE TRACE mg/dl (Neg); LEUKOCYTE ESTERASE ,URINE MODERATE (Neg); NITRITES, URINE POSITIVE (Neg); OCCULT BLOOD,URINE LARGE (Neg); PROTEIN,URINE 100 mg/dl (Neg); UROBILINOGEN,URINE 0.2 E.U/dL (0.2-1.0)
[2021-03-28 16:35] LABS: UA COLLECTION TYPE FOLEY CATH
[2021-03-28 16:37] LABS: BACTERIA,URINE 3+ /HPF (Neg); MUCUS STRANDS FEW /LPF (Neg); RBC,URINE 20-50 /HPF (0-2); SQUAMOUS EPITHELIAL CELL,UR NONE SEEN /LPF (FEW); WBC,URINE TNTC /HPF (0-4)
[2021-03-28] MEDS ORDERED: SULF1TAB45 PO ×2 (17:16→17:26)
== END 2021-03-28 13:58 | disposition home or self-care (01) ==
LOC: ER 11:25
DX: T83.091A Other mechanical complication of indwelling urethral catheter, initial encounter (principal); R32 Unspecified urinary incontinence; I48.91 Unspecified atrial fibrillation; I10 Essential (primary) hypertension; E11.9 Type 2 diabetes mellitus without complications; Z86.718 Personal history of other venous thrombosis and embolism; Z98.890 Other specified postprocedural states; Z79.2 Long term (current) use of antibiotics; Z79.899 Other long term (current) drug therapy; Y84.6 Urinary catheterization as the cause of abnormal reaction of the patient, or of later complication, without mention of misadventure at the time of the procedure
CPT/HCPCS: 51702; 81001; 87077; 87088; 87186; 99284

== ENCOUNTER 2021-05-06 16:27 | Inpatient (IN) | payer MEDICARE, OTHER ==
[~2021-05-06] VITALS: Ht 185.4 cm; Wt 136.4 kg
[2021-05-06 17:15] LABS: BASOPHILS % (AUTO) 0.4 % (0-1); EOSINOPHILS # (AUTO) 0.2 X10'3 (0-0.9); EOSINOPHILS % (AUTO) 1.5 % (0-6); HEMOGLOBIN 14.7 g/dl (14.0-17.9); LYMPHOCYTES # (AUTO) 2.1 X10'3 (1.1-4.8); LYMPHOCYTES % (AUTO) 17.3 % (21-51); MEAN CORPUSCULAR HEMOGLOBIN 31.4 PG (27.0-31.0); MEAN CORPUSCULAR HGB CONC 34.1 g/dL (33.0-36.5); MEAN CORPUSCULAR VOLUME 92.1 FL (78-98); MEAN PLATELET VOLUME 8.4 FL (7.4-10.4); MONOCYTES # (AUTO) 1.1 X10'3 (0-0.9); MONOCYTES % (AUTO) 9.4 % (2-12); NEUTROPHILS # (AUTO) 8.5 X10'3 (1.8-7.7); NEUTROPHILS % (AUTO) 71.4 % (42-75); PLATELET COUNT 360 X10'3 (140-440); RED BLOOD COUNT 4.67 X10'6 (4.70-6.10); RED CELL DISTRIBUTION WIDTH 13.7 % (11.5-14.5); WHITE BLOOD COUNT 11.9 X10'3 (4.5-11.0)
[2021-05-06 17:28] LABS: ALANINE AMINOTRANSFERASE 32 U/L (12-78); ALBUMIN 3.8 G/DL (3.4-5.0); ALBUMIN/GLOBULIN RATIO 0.8 (1.1-1.5); ALKALINE PHOSPHATASE 111 IU/L (46-116); ANION GAP 14 (8-16); ASPARTATE AMINO TRANSFERASE 20 U/L (10-37); BILIRUBIN,TOTAL 0.3 MG/DL (0.1-1.0); BLOOD UREA NITROGEN 21 MG/DL (7-18); BUN/CREATININE RATIO 19.1 (5.4-32.0); CALCIUM 9.5 MG/DL (8.5-10.1); CHLORIDE 103 MMOL/L (99-107); GLUCOSE 200 MG/DL (70-104); POTASSIUM 4.3 MMOL/L (3.5-5.1); SODIUM 140 MMOL/L (135-145); TOTAL CARBON DIOXIDE 22.9 MMOL/L (24-32); TOTAL PROTEIN 8.3 G/DL (6.4-8.2); eGFR 64 ML/MIN
[2021-05-06 17:33] LABS: CLARITY,URINE CLOUDY (Clear); COLOR,URINE YELLOW (Yellow); GLUCOSE, URINE 250 mg/dl (Neg); KETONES,URINE TRACE mg/dl (Neg); LEUKOCYTE ESTERASE ,URINE SMALL (Neg); NITRITES, URINE POSITIVE (Neg); OCCULT BLOOD,URINE MODERATE (Neg); PROTEIN,URINE 100 mg/dl (Neg); UROBILINOGEN,URINE 0.2 E.U/dL (0.2-1.0)
--- NOTE | 2021-05-06 17:33 | NUR ---
Call from daughter at this time that states his neumann catheter was placed [address] Canseco for enlarged prostate and thick bladder wall. Patient has an extensive history of UTI's and neumann catheter was changed by home health nurse yesterday.
[2021-05-06 17:38] LABS: APTT 29 SECONDS (22-32)
[2021-05-06 17:52] LABS: UA COLLECTION TYPE FOLEY CATH
[2021-05-06 17:54] LABS: BACTERIA,URINE FEW /HPF (Neg); WBC,URINE 50-100 /HPF (0-4)
[2021-05-06 17:55] LABS: CAL OXALATE CRYSTALS 1+ /HPF (NEGATIVE); MUCUS STRANDS FEW /LPF (Neg); SQUAMOUS EPITHELIAL CELL,UR FEW /LPF (FEW); WBC CLUMPS,URINE FEW /HPF (NEGATIVE)
[2021-05-06] MEDS ORDERED: piperacillin/tazo 3.375gm/50ml 50 ML IV ONE ×2 (18:20→19:55)
[2021-05-06] MEDS ORDERED: normal saline 1000ML IV soln IV ONE (18:20)
[2021-05-06] MEDS ORDERED: temazepam 15mg capsule PO PRN (21:00)
[2021-05-06] MEDS ORDERED: ondansetron/PF 4mg/2ml inj IV PRN (21:35)
[2021-05-06] MEDS ORDERED: magnesium 2GM in 50ml NS 50 ML IV PRN (21:35)
[2021-05-06] MEDS ORDERED: hydrALAZINE 25 MG tablet PO ONE (21:35)
[2021-05-06] MEDS ORDERED: magnesium Cl slow-release 64mg tablet PO PRN (21:35)
[2021-05-06] MEDS ORDERED: potassium Cl 20 mEq SR tablet PO PRN ×2 (21:35)
[2021-05-06] MEDS ORDERED: morphine 2 MG/ML inj. syringe IV PRN (21:35)
[2021-05-06] MEDS ORDERED: magnesium 4gm in 100ml NS 100 ML IV PRN (21:35)
[2021-05-06] MEDS ORDERED: hydrALAZINE 25 MG tablet PO SCH (21:35)
[2021-05-06] MEDS ORDERED: potassium CL 10mEq/100ml bag 100 ML IV PRN (21:35)
[2021-05-06] MEDS: normal saline 1000ml 1,000 ML IV SCH (21:35)
[2021-05-06] MEDS ORDERED: HYDROcodone/acetaminophen 5mg/325mg tablet PO PRN (21:35)
[2021-05-06] MEDS ORDERED: acetaminophen 325mg tablet PO PRN ×2 (21:35)
[2021-05-06] MEDS ORDERED: hyDRALAzine 10mg tablet PO PRN (21:40)
[2021-05-06] MEDS ORDERED: APIX5TAB3 PO (21:53)
[2021-05-06] MEDS ORDERED: FINA5TAB12 PO (21:53)
[2021-05-06] MEDS: lisinopril 10 MG tablet PO SCH (21:59)
[2021-05-06] MEDS: tamsulosin 0.4mg capsule PO SCH (22:00)
[2021-05-07 01:50] LABS: BASOPHILS # (AUTO) 0.1 X10'3 (0-0.2); BASOPHILS % (AUTO) 0.5 % (0-1); EOSINOPHILS # (AUTO) 0.1 X10'3 (0-0.9); EOSINOPHILS % (AUTO) 1.1 % (0-6); HEMATOCRIT 38.5 % (42.0-52.0); HEMOGLOBIN 13.3 g/dl (14.0-17.9); LYMPHOCYTES # (AUTO) 2.2 X10'3 (1.1-4.8); LYMPHOCYTES % (AUTO) 19.5 % (21-51); MEAN CORPUSCULAR HEMOGLOBIN 31.4 PG (27.0-31.0); MEAN CORPUSCULAR HGB CONC 34.5 g/dL (33.0-36.5); MEAN PLATELET VOLUME 8.1 FL (7.4-10.4); MONOCYTES # (AUTO) 0.9 X10'3 (0-0.9); MONOCYTES % (AUTO) 8.5 % (2-12); NEUTROPHILS # (AUTO) 7.8 X10'3 (1.8-7.7); NEUTROPHILS % (AUTO) 70.4 % (42-75); PLATELET COUNT 282 X10'3 (140-440); RED BLOOD COUNT 4.23 X10'6 (4.70-6.10); RED CELL DISTRIBUTION WIDTH 13.5 % (11.5-14.5); WHITE BLOOD COUNT 11.1 X10'3 (4.5-11.0)
[2021-05-07 02:10] LABS: ANION GAP 11 (8-16); BLOOD UREA NITROGEN 16 MG/DL (7-18); BUN/CREATININE RATIO 17.8 (5.4-32.0); CHLORIDE 105 MMOL/L (99-107); GLUCOSE 153 MG/DL (70-104); POTASSIUM 4.4 MMOL/L (3.5-5.1); SODIUM 140 MMOL/L (135-145); TOTAL CARBON DIOXIDE 24.2 MMOL/L (24-32)
[2021-05-07 02:11] LABS: ALANINE AMINOTRANSFERASE 27 U/L (12-78); ALBUMIN 3.3 G/DL (3.4-5.0); ALBUMIN/GLOBULIN RATIO 0.8 (1.1-1.5); ALKALINE PHOSPHATASE 91 IU/L (46-116); ASPARTATE AMINO TRANSFERASE 21 U/L (10-37); BILIRUBIN,TOTAL 0.3 MG/DL (0.1-1.0); CALCIUM 8.4 MG/DL (8.5-10.1); TOTAL PROTEIN 7.7 G/DL (6.4-8.2); eGFR 81 ML/MIN
[2021-05-07] MEDS: albuterol 2.5 MG/3 ML nebule NEB SCH ×4 (02:25→19:27)
--- NOTE | 2021-05-07 05:33 | NUR ---
5Patient in room ED 1, to be admitted to 528, I have received report from SILVIA SAENZ and had the opportunity to ask questions and assume patient care. Addendum: 05/07/21 at 0535 by Brigitte Corado RN Report received, from ED LETTY Bertrand
[2021-05-07 06:05] VITALS: BP 154/89
[2021-05-07] MEDS: heparin, porcine 5000 units/ml vial SQ SCH ×2 (07:36→21:02)
[2021-05-07] MEDS: lisinopril 10 MG tablet PO SCH (07:36)
[2021-05-07] MEDS: methylPREDNISolone sod succ/PF 40mg inj. IV SCH ×2 (07:37→21:03)
[2021-05-07] MEDS: K and/or MAG REPLACEMENT MC SCH ×2 (08:00→20:00)
[2021-05-07] MEDS: normal saline 1000ml 1,000 ML IV SCH ×2 (08:02→21:16)
--- NOTE | 2021-05-07 09:38 | NUR ---
Dr. jiang was notified patient need remove the hold status for Methylphenidate 40 mg. Medication is on pharmacy waiting for taht action.
[2021-05-07 11:00] VITALS: BP 134/86
[2021-05-07] MEDS: CefTRIAXone inj 2,000 MG in dextrose 5%-water 100 ML IV SCH (11:40)
[2021-05-07] MEDS: finasteride 5mg tablet PO SCH (11:40)
[2021-05-07 15:00] VITALS: BP 146/66
[2021-05-07] MEDS ORDERED: glucagon, human recombinant 1mg kit SUBCUT PRN (16:20)
[2021-05-07] MEDS ORDERED: dextrose 50%-water 50ml dispensing syringe IV PRN ×2 (16:20)
[2021-05-07] MEDS ORDERED: DEXTROSE 15 GM of carb/4 tabs (each vial/BOTTLE has 4 tablets) PO PRN ×2 (16:20)
[2021-05-07] MEDS ORDERED: MESSAGE TO PHARMACY PO ONE (16:20)
[2021-05-07 16:35] LABS: HEMOGLOBIN A1C 7.1 % (4.5-6.2)
[2021-05-07 18:00] VITALS: BP 146/90
--- NOTE | 2021-05-07 18:10 | NUR ---
Patient in room PCU 3025. I have received report from LETTY Mcdonald and had the opportunity to ask questions and assume patient care.
[2021-05-07] MEDS: tamsulosin 0.4mg capsule PO SCH (21:02)
[2021-05-07] MEDS: latanoprost 0.005% 2.5ml ophthalmic drops EACHEYE SCH (21:03)
[2021-05-07] MEDS: insulin glargine (Lantus) pen - multi-dose SQ SCH (21:30)
[2021-05-07 22:00] VITALS: BP 175/68
[2021-05-08] MEDS: albuterol 2.5 MG/3 ML nebule NEB SCH ×4 (02:00→20:11)
[2021-05-08 06:00] VITALS: BP 147/85
--- NOTE | 2021-05-08 06:30 | NUR ---
Patient in room PCU 3025. I have received report from Darling SAENZ and had the opportunity to ask questions and assume patient care.
--- NOTE | 2021-05-08 06:30 | NUR ---
Patient in room PCU 3025. I have received report from LETTY Hastings and had the opportunity to ask questions and assume patient care.
--- NOTE | 2021-05-08 06:37 | NUR ---
Problems reprioritized. Patient report given, questions answered & plan of care reviewed with LETTY Comer.
[2021-05-08 07:30] LABS: BASOPHILS % (AUTO) 0.2 % (0-1); EOSINOPHILS % (AUTO) 0 % (0-6); HEMATOCRIT 39.4 % (42.0-52.0); HEMOGLOBIN 13.5 g/dl (14.0-17.9); LYMPHOCYTES # (AUTO) 1.2 X10'3 (1.1-4.8); LYMPHOCYTES % (AUTO) 17.1 % (21-51); MEAN CORPUSCULAR HEMOGLOBIN 31.4 PG (27.0-31.0); MEAN CORPUSCULAR HGB CONC 34.2 g/dL (33.0-36.5); MEAN PLATELET VOLUME 8.3 FL (7.4-10.4); MONOCYTES # (AUTO) 0.2 X10'3 (0-0.9); MONOCYTES % (AUTO) 3.4 % (2-12); NEUTROPHILS # (AUTO) 5.4 X10'3 (1.8-7.7); NEUTROPHILS % (AUTO) 79.3 % (42-75); PLATELET COUNT 343 X10'3 (140-440); RED BLOOD COUNT 4.28 X10'6 (4.70-6.10); WHITE BLOOD COUNT 6.9 X10'3 (4.5-11.0)
[2021-05-08 07:50] LABS: ALANINE AMINOTRANSFERASE 27 U/L (12-78); ALBUMIN 3.5 G/DL (3.4-5.0); ALBUMIN/GLOBULIN RATIO 0.7 (1.1-1.5); ALKALINE PHOSPHATASE 91 IU/L (46-116); ANION GAP 14 (8-16); ASPARTATE AMINO TRANSFERASE 22 U/L (10-37); BILIRUBIN,TOTAL 0.3 MG/DL (0.1-1.0); BLOOD UREA NITROGEN 16 MG/DL (7-18); BUN/CREATININE RATIO 17.6 (5.4-32.0); CHLORIDE 101 MMOL/L (99-107); CREATININE 0.91 MG/DL (0.60-1.10); GLUCOSE 197 MG/DL (70-104); POTASSIUM 4.7 MMOL/L (3.5-5.1); SODIUM 136 MMOL/L (135-145); TOTAL CARBON DIOXIDE 21.2 MMOL/L (24-32); TOTAL PROTEIN 8.3 G/DL (6.4-8.2); eGFR 80 ML/MIN
[2021-05-08] MEDS: K and/or MAG REPLACEMENT MC SCH ×2 (07:53→20:28)
[2021-05-08] MEDS: heparin, porcine 5000 units/ml vial SQ SCH ×2 (09:11→20:27)
[2021-05-08] MEDS: lisinopril 10 MG tablet PO SCH (09:12)
[2021-05-08] MEDS: methylPREDNISolone sod succ/PF 40mg inj. IV SCH ×2 (09:12→20:27)
[2021-05-08] MEDS: CefTRIAXone inj 2,000 MG in dextrose 5%-water 100 ML IV SCH (09:13)
[2021-05-08] MEDS: finasteride 5mg tablet PO SCH (09:13)
[2021-05-08] MEDS: insulin Lispro (HumaLOG) vial - multi-dose SQ SCH ×4 (09:38→22:22)
[2021-05-08] MEDS: METHYLPHENIDATE HCL PO SCH (10:00)
--- NOTE | 2021-05-08 10:32 | NUR ---
Noted pt with T2DM, well controlled for age with A1c 7.1%, DM education not warranted at this time. Will continue to follow. Addendum: 05/08/21 at [address] Amended: Links added.
[2021-05-08 11:00] VITALS: BP 148/56
--- NOTE | 2021-05-08 11:05 | NUR ---
Patient has a history of Diabetes type 2, updated diet to include carb control.
--- NOTE | 2021-05-08 11:07 | NUR ---
Paged hospitalist: PAGER ID: [phone] MESSAGE: Room 3025A: Sawyer: Pt's daughter/POA is stating that pt needs his clomipramine 50 mg at HS to help treat his cataplexy and mood. It looks like it is on hold. Can we take it off hold? Bettina [phone]
[2021-05-08] MEDS: normal saline 1000ml 1,000 ML IV SCH (12:06)
--- NOTE | 2021-05-08 13:15 | NUR ---
Paged hospitalist: PAGER ID: [phone] MESSAGE: Room 3025A: Sawyer: The patient's daughter/POA is, Alexus Robles. She's an employee at [employer]. Her extension is: [phone]. Cell phone: [phone]. LETTY Dunbar [phone]
--- NOTE | 2021-05-08 14:09 | NUR ---
Velasco Care intervention added. Velasco care performed after lunch and on previous shift. Velasco bag has dated stickers from previous shifts when care was performed.
--- NOTE | 2021-05-08 14:54 | NUR ---
Patients daughter dropped of the home prescription of Clomipramine, being held in pharmacy in case pharmacy doesn't stock it for nightly dispensing.
[2021-05-08 15:00] VITALS: BP 156/63
[2021-05-08] MEDS: piperacillin/tazo 3.375gm/50ml 50 ML IV SCH (16:11)
[2021-05-08 18:00] VITALS: BP 160/67
--- NOTE | 2021-05-08 18:07 | NUR ---
[place] documentation: I have reviewed and agree with all interventions, assessments performed and documented by Bettina RN.
--- NOTE | 2021-05-08 18:08 | NUR ---
[place] Medication Administration: For this medication-pass time frame, all medication were reviewed, dispensed, administered and documented per hospital policy by Bettina SAENZ.
--- NOTE | 2021-05-08 18:24 | NUR ---
Problems reprioritized. Patient report given, questions answered & plan of care reviewed with Nancy SAENZ.
[2021-05-08] MEDS: tamsulosin 0.4mg capsule PO SCH (20:26)
[2021-05-08] MEDS: latanoprost 0.005% 2.5ml ophthalmic drops EACHEYE SCH (20:27)
[2021-05-08] MEDS: CLOMIPRAMINE HCL 50 MG CAPSULE PO SCH (20:28)
[2021-05-08] MEDS ORDERED: tamsulosin 0.4mg capsule PO SCH (21:00)
[2021-05-08 22:00] VITALS: BP 132/51
[2021-05-08] MEDS: insulin glargine (Lantus) pen - multi-dose SQ SCH (22:24)
[2021-05-09] MEDS: piperacillin/tazo 3.375gm/50ml 50 ML IV SCH ×3 (00:52→16:28)
[2021-05-09] MEDS: albuterol 2.5 MG/3 ML nebule NEB SCH ×4 (02:00→20:01)
--- NOTE | 2021-05-09 04:21 | NUR ---
patient refused 2AM vitals
[2021-05-09 06:00] VITALS: BP 105/66
[2021-05-09] MEDS: K and/or MAG REPLACEMENT MC SCH ×2 (08:00→20:00)
[2021-05-09] MEDS: methylPREDNISolone sod succ/PF 40mg inj. IV SCH (08:06)
[2021-05-09] MEDS: heparin, porcine 5000 units/ml vial SQ SCH ×2 (08:06→21:54)
[2021-05-09] MEDS: METHYLPHENIDATE HCL PO SCH (08:06)
[2021-05-09] MEDS: finasteride 5mg tablet PO SCH (08:06)
[2021-05-09] MEDS: lisinopril 10 MG tablet PO SCH (08:07)
[2021-05-09 08:10] LABS: BASOPHILS % (AUTO) 0.3 % (0-1); EOSINOPHILS % (AUTO) 0.2 % (0-6); HEMATOCRIT 36.6 % (42.0-52.0); HEMOGLOBIN 12.6 g/dl (14.0-17.9); LYMPHOCYTES # (AUTO) 2.4 X10'3 (1.1-4.8); LYMPHOCYTES % (AUTO) 25.3 % (21-51); MEAN CORPUSCULAR HEMOGLOBIN 31.7 PG (27.0-31.0); MEAN CORPUSCULAR HGB CONC 34.6 g/dL (33.0-36.5); MEAN CORPUSCULAR VOLUME 91.7 FL (78-98); MEAN PLATELET VOLUME 8.5 FL (7.4-10.4); MONOCYTES # (AUTO) 1.3 X10'3 (0-0.9); MONOCYTES % (AUTO) 13.6 % (2-12); NEUTROPHILS # (AUTO) 5.7 X10'3 (1.8-7.7); NEUTROPHILS % (AUTO) 60.6 % (42-75); PLATELET COUNT 307 X10'3 (140-440); RED BLOOD COUNT 3.99 X10'6 (4.70-6.10); RED CELL DISTRIBUTION WIDTH 13.9 % (11.5-14.5); WHITE BLOOD COUNT 9.3 X10'3 (4.5-11.0)
[2021-05-09 08:47] LABS: ALANINE AMINOTRANSFERASE 26 U/L (12-78); ALBUMIN 3.2 G/DL (3.4-5.0); ALBUMIN/GLOBULIN RATIO 0.9 (1.1-1.5); ALKALINE PHOSPHATASE 77 IU/L (46-116); ANION GAP 11 (8-16); ASPARTATE AMINO TRANSFERASE 19 U/L (10-37); BILIRUBIN,TOTAL 0.3 MG/DL (0.1-1.0); BLOOD UREA NITROGEN 24 MG/DL (7-18); BUN/CREATININE RATIO 24.5 (5.4-32.0); CALCIUM 8.8 MG/DL (8.5-10.1); CHLORIDE 103 MMOL/L (99-107); CREATININE 0.98 MG/DL (0.60-1.10); GLUCOSE 125 MG/DL (70-104); POTASSIUM 4.1 MMOL/L (3.5-5.1); SODIUM 139 MMOL/L (135-145); TOTAL CARBON DIOXIDE 24.7 MMOL/L (24-32); TOTAL PROTEIN 6.8 G/DL (6.4-8.2); eGFR 73 ML/MIN
[2021-05-09 11:00] VITALS: BP 149/69
[2021-05-09] MEDS: VANCOMYCIN 1GM/200ML IVPB 200 ML IV SCH (14:00)
[2021-05-09 15:00] VITALS: BP 154/70
[2021-05-09 18:00] VITALS: BP 125/59
[2021-05-09] MEDS: insulin Lispro (HumaLOG) vial - multi-dose SQ SCH (19:44)
[2021-05-09] MEDS: insulin glargine (Lantus) pen - multi-dose SQ SCH (21:53)
[2021-05-09] MEDS: CLOMIPRAMINE HCL 50 MG CAPSULE PO SCH (21:54)
[2021-05-09] MEDS: latanoprost 0.005% 2.5ml ophthalmic drops EACHEYE SCH (21:54)
[2021-05-09] MEDS: tamsulosin 0.4mg capsule PO SCH (21:54)
[2021-05-09 22:00] VITALS: BP 141/63
[2021-05-09] MEDS: normal saline 1000ml 1,000 ML IV SCH (22:01)
[2021-05-10] MEDS: VANCOMYCIN 1GM/200ML IVPB 200 ML IV SCH ×2 (00:24→12:55)
[2021-05-10 02:00] VITALS: BP 137/59
[2021-05-10] MEDS: piperacillin/tazo 3.375gm/50ml 50 ML IV SCH ×3 (02:11→16:49)
[2021-05-10] MEDS: albuterol 2.5 MG/3 ML nebule NEB SCH ×4 (03:02→21:43)
[2021-05-10 06:00] VITALS: BP 160/82
[2021-05-10 06:30] LABS: BASOPHILS # (AUTO) 0.1 X10'3 (0-0.2); BASOPHILS % (AUTO) 0.8 % (0-1); EOSINOPHILS % (AUTO) 0.6 % (0-6); HEMATOCRIT 37.4 % (42.0-52.0); HEMOGLOBIN 12.9 g/dl (14.0-17.9); LYMPHOCYTES # (AUTO) 2.8 X10'3 (1.1-4.8); LYMPHOCYTES % (AUTO) 34.6 % (21-51); MEAN CORPUSCULAR HEMOGLOBIN 31.6 PG (27.0-31.0); MEAN CORPUSCULAR HGB CONC 34.5 g/dL (33.0-36.5); MEAN CORPUSCULAR VOLUME 91.7 FL (78-98); MEAN PLATELET VOLUME 8.4 FL (7.4-10.4); MONOCYTES # (AUTO) 1.1 X10'3 (0-0.9); MONOCYTES % (AUTO) 13.9 % (2-12); NEUTROPHILS % (AUTO) 50.1 % (42-75); PLATELET COUNT 273 X10'3 (140-440); RED BLOOD COUNT 4.08 X10'6 (4.70-6.10); RED CELL DISTRIBUTION WIDTH 13.6 % (11.5-14.5); WHITE BLOOD COUNT 7.9 X10'3 (4.5-11.0)
[2021-05-10 07:13] LABS: ALANINE AMINOTRANSFERASE 49 U/L (12-78); ALBUMIN 3.2 G/DL (3.4-5.0); ALBUMIN/GLOBULIN RATIO 0.9 (1.1-1.5); ALKALINE PHOSPHATASE 73 IU/L (46-116); ANION GAP 9 (8-16); ASPARTATE AMINO TRANSFERASE 44 U/L (10-37); BILIRUBIN,TOTAL 0.4 MG/DL (0.1-1.0); BLOOD UREA NITROGEN 20 MG/DL (7-18); BUN/CREATININE RATIO 20.6 (5.4-32.0); CALCIUM 8.7 MG/DL (8.5-10.1); CHLORIDE 103 MMOL/L (99-107); CREATININE 0.97 MG/DL (0.60-1.10); GLUCOSE 105 MG/DL (70-104); POTASSIUM 4.1 MMOL/L (3.5-5.1); SODIUM 138 MMOL/L (135-145); TOTAL CARBON DIOXIDE 26.3 MMOL/L (24-32); TOTAL PROTEIN 6.7 G/DL (6.4-8.2); eGFR 74 ML/MIN
[2021-05-10] MEDS: K and/or MAG REPLACEMENT MC SCH ×2 (08:00→20:00)
[2021-05-10] MEDS: METHYLPHENIDATE HCL PO SCH (08:22)
[2021-05-10] MEDS: finasteride 5mg tablet PO SCH (08:22)
[2021-05-10] MEDS: heparin, porcine 5000 units/ml vial SQ SCH ×2 (08:22→21:07)
[2021-05-10] MEDS: lisinopril 20mg tablet PO SCH (08:23)
[2021-05-10 11:00] VITALS: BP 136/70
[2021-05-10 15:00] VITALS: BP 99/42
[2021-05-10 18:00] VITALS: BP 112/58
[2021-05-10] MEDS: insulin Lispro (HumaLOG) vial - multi-dose SQ SCH (19:14)
[2021-05-10] MEDS: latanoprost 0.005% 2.5ml ophthalmic drops EACHEYE SCH (21:06)
[2021-05-10] MEDS: tamsulosin 0.4mg capsule PO SCH (21:07)
[2021-05-10] MEDS: CLOMIPRAMINE HCL 50 MG CAPSULE PO SCH (21:07)
[2021-05-10] MEDS: insulin glargine (Lantus) pen - multi-dose SQ SCH (21:41)
[2021-05-10 22:00] VITALS: BP 154/74
[2021-05-10] MEDS ORDERED: VANCOMYCIN LEVEL IV ONE (23:30)
[2021-05-11] MEDS: VANCOMYCIN 1GM/200ML IVPB 200 ML IV SCH (00:15)
[2021-05-11] MEDS: piperacillin/tazo 3.375gm/50ml 50 ML IV SCH ×2 (01:47→09:22)
[2021-05-11] MEDS: normal saline 1000ml 1,000 ML IV SCH (01:48)
[2021-05-11 02:00] VITALS: BP 146/66
[2021-05-11] MEDS: albuterol 2.5 MG/3 ML nebule NEB SCH ×2 (02:21→07:30)
[2021-05-11 06:00] VITALS: BP 129/77
[2021-05-11 06:19] LABS: BASOPHILS # (AUTO) 0.1 X10'3 (0-0.2); EOSINOPHILS # (AUTO) 0.1 X10'3 (0-0.9); EOSINOPHILS % (AUTO) 1.9 % (0-6); HEMATOCRIT 39.2 % (42.0-52.0); HEMOGLOBIN 13.4 g/dl (14.0-17.9); LYMPHOCYTES # (AUTO) 2.5 X10'3 (1.1-4.8); LYMPHOCYTES % (AUTO) 32.5 % (21-51); MEAN CORPUSCULAR HEMOGLOBIN 31.6 PG (27.0-31.0); MEAN CORPUSCULAR HGB CONC 34.2 g/dL (33.0-36.5); MEAN CORPUSCULAR VOLUME 92.3 FL (78-98); MEAN PLATELET VOLUME 8.7 FL (7.4-10.4); MONOCYTES # (AUTO) 1.1 X10'3 (0-0.9); NEUTROPHILS # (AUTO) 3.9 X10'3 (1.8-7.7); NEUTROPHILS % (AUTO) 50.6 % (42-75); PLATELET COUNT 278 X10'3 (140-440); RED BLOOD COUNT 4.25 X10'6 (4.70-6.10); RED CELL DISTRIBUTION WIDTH 13.7 % (11.5-14.5); WHITE BLOOD COUNT 7.8 X10'3 (4.5-11.0)
[2021-05-11 07:07] LABS: ALANINE AMINOTRANSFERASE 59 U/L (12-78); ALBUMIN 3.4 G/DL (3.4-5.0); ALKALINE PHOSPHATASE 76 IU/L (46-116); ANION GAP 14 (8-16); ASPARTATE AMINO TRANSFERASE 39 U/L (10-37); BILIRUBIN,TOTAL 0.5 MG/DL (0.1-1.0); BLOOD UREA NITROGEN 18 MG/DL (7-18); CHLORIDE 102 MMOL/L (99-107); GLUCOSE 112 MG/DL (70-104); SODIUM 139 MMOL/L (135-145); TOTAL CARBON DIOXIDE 23.5 MMOL/L (24-32); TOTAL PROTEIN 6.8 G/DL (6.4-8.2); eGFR 81 ML/MIN
[2021-05-11] MEDS: heparin, porcine 5000 units/ml vial SQ SCH (09:21)
[2021-05-11] MEDS: METHYLPHENIDATE HCL PO SCH (09:21)
[2021-05-11] MEDS: finasteride 5mg tablet PO SCH (09:22)
[2021-05-11] MEDS: lisinopril 20mg tablet PO SCH (09:22)
--- NOTE | 2021-05-11 09:53 | NUR ---
Initial: pt admit dx UTI, COPD exacerbation, emphysematous cystitis, uncontrolled HTN, encephalopathy, and dementia per EMR. Pt w/ hx DM, A1c 7.1 though well controlled for age according to ADA guidelines. No DM education needed at this time. Pt currently on heart healthy/carb control diet and eating ~100% of meals and meeting needs. Recommend liberalizing to regular diet given age and A1c 7.1. LBM 05/10. No nutrition intervention implemented at this time. Will continue to monitor. Recommendations: 1. Liberalize to regular diet if MD agreeable 2. Bowel care per rx 3. Scaled wt this admit, weekly scaled wts thereafter Addendum: 05/11/21 at [address] Amended: Links added. Addendum: 05/11/21 at [address] I have reviewed assessment by intern retail
[2021-05-11 11:00] VITALS: BP 154/107
[2021-05-11] MEDS ORDERED: morphine 2 MG/ML inj. syringe IV PRN (13:20)
[2021-05-11] MEDS ORDERED: morphine 10mg/0.5ml (conc. morphine) oral syringe PO PRN (13:20)
[2021-05-11] MEDS ORDERED: LORazepam 2 mg/ml vial IV PRN (13:20)
[2021-05-11 18:00] VITALS: BP 144/81
--- NOTE | 2021-05-11 21:07 | NUR ---
patient seating in the recliner in no apparent distress reading the newspaper. Patient denies pain or discomfort. patient encouraged to elevate legs while seating. Verbalizes understanding and agrees to elevate legs now. All safety measures implemented. will continue offering comfort as requested.
[2021-05-11 22:00] VITALS: BP 141/70
--- NOTE | 2021-05-12 12:30 | NUR ---
assisting RN with pt care, pt is going to be dc'd home on hospice care, family at bedside, verbalized understanding how to care for nel "I have been doing it for 5 months...and a nurse comes out", IV to left forearm dc'd, cannula intact, assisted pt with getting dressed. Transport team at bedside, report given to Brandon.
[2021-05-12] MEDS ORDERED: CIPR-259 PO (15:46)
[2021-05-12] MEDS ORDERED: LINE600T14 PO (15:48)
[2021-05-12] MEDS ORDERED: VANCOMYCIN LEVEL IV ONE (23:30)
== END 2021-05-12 12:34 | disposition hospice, home (50) | DRG 698 ==
LOC: ER 16:29 → ED HOLD 21:40 → PCU 3S 05-07 05:50
PROVIDERS: ADMIT Internal Medicine; ATTEND Family Medicine
PROC: 0T2BX0Z Change Drainage Device in Bladder, External Approach (ICD-10-PCS; principal; 2021-05-08)
DX: T83.511A Infection and inflammatory reaction due to indwelling urethral catheter, initial encounter (principal); G93.41 Metabolic encephalopathy; N32.1 Vesicointestinal fistula; N30.80 Other cystitis without hematuria; E11.9 Type 2 diabetes mellitus without complications; F03.90 Unspecified dementia, unspecified severity, without behavioral disturbance, psychotic disturbance, mood disturbance, and anxiety; E66.01 Morbid (severe) obesity due to excess calories; Z66 Do not resuscitate; B96.5 Pseudomonas (aeruginosa) (mallei) (pseudomallei) as the cause of diseases classified elsewhere; B95.2 Enterococcus as the cause of diseases classified elsewhere; B95.62 Methicillin resistant Staphylococcus aureus infection as the cause of diseases classified elsewhere; C67.9 Malignant neoplasm of bladder, unspecified; G47.419 Narcolepsy without cataplexy; I10 Essential (primary) hypertension; H91.93 Unspecified hearing loss, bilateral; J43.9 Emphysema, unspecified; N40.0 Benign prostatic hyperplasia without lower urinary tract symptoms; I48.91 Unspecified atrial fibrillation; Z86.718 Personal history of other venous thrombosis and embolism; Z80.0 Family history of malignant neoplasm of digestive organs; Z68.39 Body mass index [BMI] 39.0-39.9, adult; Z79.899 Other long term (current) drug therapy
CPT/HCPCS: 36415; 70450; 71045; 74176; 80053; 80202; 81001; 82948; 83036; 83605; 84145; 84484; 85025; 85610; 85730; 87040; 87077; 87088; 87186; 93005; 94640; 94760; 96365; 97110; 97161; 97530; 99285; G0378; J0696; J1644; J1815; J2543; J2920; J3370; J7030; J7060